=== PATIENT | male | born 1940 | race Caucasian/White ===

== ENCOUNTER → 2016-05-23 | Outpatient (CLI) | payer MEDICARE, OTHER ==
[~2016-05-23] MED LIST: ADV250INH INH; ATEN100T PO; AZIL1TAB2 PO; CIPR500T89 PO; CO Q400C2 PO; COMBIN INH; FLUTISP; HYDR10TA13 PO; LISI5TAB PO; METF1000 PO; METR500T10 PO; MIRA0.12 PO; MULTTAB4 PO; NYST50SS SS; OMEP40CA2 PO; SENO8.6T9 PO; SIMV10TA2 PO; TYLE325T5 PO
[2016-05-23 13:29] LABS: ANION GAP 8 MEQ/L (8-16); BLOOD UREA NITROGEN 20 MG/DL (7-18); CALCIUM LEVEL 9.1 MG/DL (8.8-10.2); CARBON DIOXIDE LEVEL 34 MEQ/L (21-32); CHLORIDE LEVEL 98 MEQ/L (98-107); CREATININE FOR GFR 1.11 MG/DL (0.70-1.30); GLOMERULAR FILTRATION RATE > 60.0 (>42); GLUCOSE, FASTING 132 MG/DL (83-110); POTASSIUM SERUM 3.8 MEQ/L (3.5-5.1); SODIUM LEVEL 140 MEQ/L (136-145)
== END ==
LOC: M SMT 09:00
PROVIDERS: ATTEND Internal Medicine Cardiovascular Disease
DX: I10 Essential (primary) hypertension (principal)

== ENCOUNTER → 2016-05-30 | Outpatient (CLI) | payer MEDICARE, OTHER ==
--- NOTE | 2016-05-30 08:35 | REP ---
CT study of the chest without contrast: History: Solitary pulmonary nodule. Comparison studies: Chest CT study in August 28, 2015. This showed irregular somewhat spiculated density in the right upper lobe. This was biopsied on October 14, 2015. With benign results. CT findings: The lesion which was biopsied in the posterior segment of the right upper lobe shows only a small amount of pleuroparenchymal linear fibrosis. Otherwise, this lesion has resolved. There are emphysematous changes in the upper lobes bilaterally. There is also some pleuroparenchymal fibrosis in the apex of the right lung, which is new from the September 14, 2015 prior exam. Mild linear fibrosis is seen in the bases bilaterally, unchanged. The patient is status post left thoracotomy and left upper lobectomy and postoperative changes are seen in the left hilus. No pleural or pericardial effusion is seen. There are post thoracotomy changes in the posterolateral rib cage as before. No bony destructive lesion is seen. Degenerative changes are noted in the thoracic spine. Vascular calcification is noted. No adrenal lesion is seen. Impression: Evidence of COPD with areas of bilateral pleuroparenchymal fibrosis as described above. The lesion described on the August 28, 2015 prior study has largely resolved with some residual fibrosis. No active disease. Signed by Emir Calero MD 05/30/2016 02:26 P
== END ==
LOC: M RAD 07:20
PROVIDERS: ATTEND Internal Medicine Pulmonary Disease
DX: R91.1 Solitary pulmonary nodule (principal)

== ENCOUNTER → 2016-06-29 | Outpatient (CLI) | payer MEDICARE, OTHER ==
[2016-06-29 14:01] LABS: ALBUMIN 3.4 GM/DL (3.2-5.2); ALBUMIN/GLOBULIN RATIO 0.92 (1.00-1.93); ALKALINE PHOSPHATASE 913 U/L (45-117); ALT/SGPT 55 U/L (12-78); ANION GAP 6 MEQ/L (8-16); AST/SGOT 161 U/L (15-37); BILIRUBIN,TOTAL 1.5 MG/DL (0.2-1.0); BLOOD UREA NITROGEN 13 MG/DL (7-18); CALCIUM LEVEL 9.1 MG/DL (8.8-10.2); CARBON DIOXIDE LEVEL 36 MEQ/L (21-32); CHLORIDE LEVEL 97 MEQ/L (98-107); CHOLESTEROL LEVEL 195 MG/DL (<200); CREATININE FOR GFR 0.87 MG/DL (0.70-1.30); GLOMERULAR FILTRATION RATE > 60.0 (>42); GLUCOSE, FASTING 141 MG/DL (83-110); POTASSIUM SERUM 3.9 MEQ/L (3.5-5.1); SODIUM LEVEL 139 MEQ/L (136-145); TOTAL PROTEIN 7.1 GM/DL (6.4-8.2); TRIGLYCERIDES LEVEL 72 MG/DL (<150)
== END ==
LOC: M SMT 10:12
PROVIDERS: ATTEND Emergency Medicine
DX: I10 Essential (primary) hypertension (principal); E78.2 Mixed hyperlipidemia; E11.9 Type 2 diabetes mellitus without complications

== ENCOUNTER 2016-09-11 08:15 | Inpatient (IN) | payer MEDICARE, OTHER ==
[~2016-09-11] VITALS: Ht 177.8 cm; Wt 82.7 kg
[2016-09-11] MEDS ORDERED: ADV250INH INH (08:56)
[2016-09-11] MEDS ORDERED: ASPI1TAB PO ×3 (08:56→12:04)
[2016-09-11] MEDS ORDERED: MULT1TAB10 PO (08:56)
[2016-09-11] MEDS ORDERED: METF500T PO (08:56)
[2016-09-11] MEDS ORDERED: COMBAER6 INH (08:56)
[2016-09-11] MEDS ORDERED: FLON1SPR (08:56)
[2016-09-11] MEDS ORDERED: ZOCO10TA PO (08:56)
[2016-09-11] MEDS ORDERED: AMIL5TA PO (08:56)
[2016-09-11] MEDS ORDERED: ALEV220C2 PO (09:00)
[2016-09-11] MEDS ORDERED: OMEP40CA2 PO (09:00)
[2016-09-11] MEDS ORDERED: MIRA1.5T2 PO (09:00)
[2016-09-11] MEDS ORDERED: AZIL1TAB PO (09:00)
[2016-09-11] MEDS ORDERED: SINE25TA PO (09:00)
[2016-09-11] MEDS ORDERED: TORS20TA2 PO ×3 (09:00→12:06)
[2016-09-11 09:44] LABS: BASO % 0.5 % (0.0-1.0); EOS # 0.2 K/mm3 (0.0-0.50); EOS % 2.2 % (0.0-3.0); LARGE UNSTAINED CELL # 0.1 K/mm3 (0.0-0.4); LARGE UNSTAINED CELL % 1.2 % (0.0-4.0); LYMPH # 1.2 K/mm3 (1.5-4.5); LYMPH % 16.8 % (24.0-44.0); MEAN CORPUSCULAR HEMOGLOBIN 31.2 pg (27.0-33.0); MEAN CORPUSCULAR HGB CONC 32.9 g/dl (32.0-36.5); MEAN CORPUSCULAR VOLUME 94.9 fl (80.0-96.0); MONO # 0.5 K/mm3 (0.0-0.8); NEUTROPHILS # 4.8 K/mm3 (1.8-7.7); NEUTROPHILS % 72.3 % (36.0-66.0); PLATELET COUNT, AUTOMATED 248 k/mm3 (150-450); RED CELL DISTRIBUTION WIDTH 14.4 % (11.5-14.5); WHITE BLOOD COUNT 6.6 K/mm3 (4.0-10.0)
[2016-09-11 09:49] LABS: INR 1.03
[2016-09-11 10:34] LABS: ALBUMIN 3.1 GM/DL (3.2-5.2); ALBUMIN/GLOBULIN RATIO 0.67 (1.00-1.93); ALT/SGPT 76 U/L (12-78); AMYLASE 47 U/L (25-115); ANION GAP 7 MEQ/L (8-16); AST/SGOT 296 U/L (15-37); BILIRUBIN,DIRECT 13.7 MG/DL (0.0-0.2); BLOOD UREA NITROGEN 15 MG/DL (7-18); CALCIUM LEVEL 9.3 MG/DL (8.8-10.2); CARBON DIOXIDE LEVEL 36 MEQ/L (21-32); CHLORIDE LEVEL 92 MEQ/L (98-107); CREATININE FOR GFR 1.08 MG/DL (0.70-1.30); GLOMERULAR FILTRATION RATE > 60.0 (>42); GLUCOSE, FASTING 118 MG/DL (83-110); POTASSIUM SERUM 2.9 MEQ/L (3.5-5.1); SODIUM LEVEL 135 MEQ/L (136-145); TOTAL PROTEIN 7.7 GM/DL (6.4-8.2)
--- NOTE | 2016-09-11 10:39 | REP ---
Portable chest x-ray: Sitting AP view. History: Jaundice. Comparison chest x-ray: October 14, 2015. Findings: There is some linear fibrosis or plate-like atelectasis in the right upper lobe. This is much improved when compared with the October 14, 2015 study. The left hemidiaphragm remains slightly elevated with blunting of the lateral pleural angle and surgical clips in the left mediastinum post thoracotomy. Post thoracotomy changes are seen in the left rib cage as before. Lung ponce are otherwise clear. The right pleural angle is sharp. Heart is not enlarged. Impression: Post thoracotomy changes on the left. Linear fibrosis versus discoid atelectasis right apex. This is improved. Otherwise no acute disease. Signed by Emir Calero MD 09/11/2016 11:32 A
[2016-09-11 10:42] LABS: ALKALINE PHOSPHATASE 1026 U/L (45-117)
[2016-09-11 10:53] LABS: BILIRUBIN,TOTAL 17.4 MG/DL (0.2-1.0)
[2016-09-11] MEDS ORDERED: POTASSIUM CHLORIDE 10 MEQ SR TABLET PO ONE ×2 (11:00→18:00)
[2016-09-11] MEDS ORDERED: KCL 10MEQ IN 100ML SWI (KRUN) 10 MEQ in APPROPRIATE DILUENT 1 EA IV ONE ×2 (11:00)
[2016-09-11] MEDS ORDERED: ISOVUE-370 76% 100ML VIAL (Q9967) As Ordered ONE (11:08)
[2016-09-11] MEDS ORDERED: OMEP20CA3 PO (12:04)
--- NOTE | 2016-09-11 12:06 | REP ---
CT study of the abdomen and pelvis with IV but without oral contrast: History: Painless jaundice. The patient is status post prior cholecystectomy. Comparison CT study is reviewed from chest CT June 09, [address] September 17, 2015. CT contrast dose: 100 ml of Isovue 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 The lung bases show minimal linear fibrotic changes but are otherwise clear. The spleen is unremarkable. The liver is not enlarged. There is moderate intrahepatic and extrahepatic biliary ductal dilation. There is a heterogeneous area of increased attenuation and fullness in the allison hepatis in the region of the common hepatic duct segment. This measures 18 mm in greatest diameter. The duct above this level measures 15 mm in diameter. This may reflect soft tissue mass involving the choledochus versus choledocholithiasis. Distal to this, the common bile duct is normal measuring 5 mm. No pancreatic mass lesion is seen. No adenopathy is noted. No adrenal lesion is observed. There are small cortical cysts affecting both kidneys. No hydronephrosis or mass is seen. Normal caliber aorta is seen fairly heavily calcified. No focal liver mass lesion is observed. Small and large intestinal bowel loops are unremarkable in the abdomen and pelvis. Urinary bladder, seminal vesicles and prostate are unremarkable except that the prostate is enlarged and contains a few dystrophic calcifications consistent with BPH. No bony destructive lesion is seen. Impression: Small, 18 mm, obstructing polypoid mass versus a stone in the common hepatic duct within the hepatic allison. Proximal intrahepatic and extrahepatic biliary ductal dilation is observed. Recommend MRCP versus ERCP. The gallbladder is surgically absent. Signed by Emir Calero MD 09/11/2016 12:53 P
[2016-09-11] MEDS ORDERED: ARTI99.0 OU (12:08)
[2016-09-11] MEDS ORDERED: REST0.05 OU (12:08)
[2016-09-11] MEDS ORDERED: METF500T4 PO (12:26)
[2016-09-11] MEDS ORDERED: NS 1,000 ML IV ONE (13:45)
[2016-09-11] MEDS ORDERED: GLUCOSE 4 GM CHEW TABLET PO PRN (14:45)
[2016-09-11] MEDS ORDERED: DEXTROSE 50% 50 ML SYRINGE IV PRN (14:45)
[2016-09-11] MEDS ORDERED: ONDANSETRON 4MG/2ML VIAL (J2405) IV PRN (14:45)
[2016-09-11] MEDS ORDERED: GLUCAGON FOR INJ 1 MG VIAL (J1610) SC PRN (14:45)
[2016-09-11] MEDS ORDERED: IPRATROPIUM 0.5MG/ALBUTEROL 2.5MG INH SOL UD 3ML (DUONEB)(J7620) NEB PRN (14:45)
--- NOTE | 2016-09-11 15:33 | HPEPDOC ---
General Date of Admission Sep 11, 2016 at 14:40 Primary Care Physician: SHA CABRERA MD Attending Physician: RAMONA GROVE MD Chief Complaint The patient is a 75-year-old male admitted with a reason for visit of Hyperbilirubinemia. History of Present Illness 75-year-old male with past medical of hypertension, COPD, obstructive sleep apnea, diabetes mellitus, dyslipidemia, lung cancer status post resection of the left upper lobe in 2000, Parkinson's disease, and dependent lower extremity edema presented to the ER with a chief complaint of yellowing of the skin over the last 48 hours. The patient states that he started to notice his skin turning yellow early yesterday morning. He denied any fevers, chills, chest pain , palpitations, shortness of breath, abdominal pain or any nausea or vomiting. However, the patient did state that he has had a decreased appetite over the last 6 weeks and has lost approximately 8 pounds. He also noted that he has been having some loose stools over the last few weeks. In addition, the patient notes that his urine has been a dark-colored brown. In the ER, the patient's liver function tests revealed significant elevations in total bilirubin, alkaline phosphatase, AST, and ALT levels. A CT scan of the abdomen was obtained and this revealed a 18 mm obstructing polypoid mass versus stone in the common hepatic duct. GI was contacted in the ER, and will see the patient in consultation for possible ERCP in the morning. The hospitalist service has been consulted for admission and further evaluation and management. Home Medications Scheduled (Aleve) 220 Mg Cap, 220 MG PO BID, (Reported) (Restasis) 0.05 % Emu, 1 DROP OU BID, (Reported) Amiloride HCl (Amiloride HCl) 5 Mg Tab, 5 MG PO DAILY, (Reported) Aspirin (Aspirin 81) 81 Mg Tab, 81 MG PO DAILY, (Reported) Carbidopa/Levodopa (Sinemet Cr 25-100 mg) 1 Tab Tab, 0.5 TAB PO QID, (Reported) Metformin Hydrochloride (Metformin HCl ER) 500 Mg Tab, 500 MG PO QHS, (Reported) Multivitamins (Multivitamin Adults) 1 Tab Tab, 1 TAB PO DAILY, (Reported) Omeprazole (Omeprazole) 20 Mg Cap, 40 MG PO DAILY, (Reported) Pramipexole Dihydrochloride (Mirapex) 1.5 Mg Tab, 1.5 MG PO TID, (Reported) Rasagiline Mesylate (Azilect) 1 Mg Tab, 1 MG PO DAILY, (Reported) Salmeterol/Fluticasone (Advair Diskus 250-50 Mcg/Dose) 14 Puff/Inhaler Aerp, 1 PUFF INH BID, (Reported) Simvastatin (Zocor) 10 Mg Tab, 10 MG PO QHS, (Reported) Torsemide (Torsemide) 20 Mg Tab, 20 MG PO QAM, (Reported) Torsemide (Torsemide) 20 Mg Tab, 10 MG PO QPM, (Reported) AT 1600 Scheduled PRN Albuterol/Ipratropium (Combivent Respimat 20-100 Mcg/Act) 1 Aer Aer, 2 PUFF INH Q4H PRN for SHORTNESS OF BREATH, (Reported) Artificial Tears (Artificial Tears) 1.4 % Mellisa, 1 LÓPEZ OU DAILY PRN for DRY EYES, (Reported) Allergies Coded Allergies: Penicillins (Unverified Adverse Reaction, Mild, MOUTH SORENESS, 02/28/13) Past Medical History Medical History As noted in HPI. Surgical History Tonsillectomy, adenoidectomy, right knee surgery, shoulder surgery, left upper lobe resection in 2000, cholecystectomy Family History Significant Family History: No pertinent family hx Social History * Smoker: former Smoker (smoked 1-2 packs per day for 30+ years, quit 15+ years ago) Alcohol: occationally (drinks a glass of red wine with dinner on most nights) Drugs: denies Lives at home with his , does not use any assistive devices for ambulation, performs activities of daily living independently Review of Symptoms Other systems 10 point review of systems negative unless otherwise specified in HPI. Physical Examination General Exam: Positive: Alert, Cooperative, No Acute Distress, Other (patient resting comfortably in bed, appears significantly jaundiced) Eye Exam: Positive: Sclera icteric ENT Exam: Positive: Atraumatic, Mucous membr. moist/pink Chest Exam: Positive: Clear to auscultation, Normal air movement Heart Exam: Positive: Rate Normal, Normal S1, Normal S2 Telemetry: Positive: Sinus Abdomen Exam: Positive: Soft, Negative: Tenderness Extremity Exam: Negative: Tenderness, Swelling Psych Exam: Positive: Oriented x 3 Vital Signs Vital Signs Date Time Temp Pulse Resp B/P (MAP) Pulse Ox O2 Delivery O2 Flow Rate FiO2 6/18/17 13:34 155/79 (104) 09/11/16 13:30 70 97 09/11/16 08:47 97.9 16 Laboratory Data Labs 24H Laboratory Tests 2 09/11/16 09:31: White Blood Count 6.6, Red Blood Count 4.40, Hemoglobin 13.7L, Hematocrit 41.7L , Mean Corpuscular Volume 94.9, Mean Corpuscular Hemoglobin 31.2, Mean Corpuscular Hemoglobin Concent 32.9, Red Cell Distribution Width 14.4, Platelet Count 248, Neutrophils (%) (Auto) 72.3H, Lymphocytes (%) (Auto) 16.8L, Monocytes (%) (Auto) 7.0H, Eosinophils (%) (Auto) 2.2, Basophils (%) (Auto) 0.5 , Neutrophils # (Auto) 4.8, Lymphocytes # (Auto) 1.2L, Monocytes # (Auto) 0.5, Eosinophils # (Auto) 0.2, Basophils # (Auto) 0.0, Large Unclassified Cells % 1.2 , Large Unclassified Cells # 0.1, Prothrombin Time 13.6, Prothromb Time International Ratio 1.03, Activated Partial Thromboplast Time 34.0, Anion Gap 7L , Glomerular Filtration Rate > 60.0, Lactic Acid Level 0.8, Calcium Level 9.3, Magnesium Level 2.4, Aspartate Amino Transf (AST/SGOT) 296H, Alanine Aminotransferase (ALT/SGPT) 76, Alkaline Phosphatase 1026H, Total Bilirubin 17.4 *H, Direct Bilirubin 13.7H, Total Creatine Kinase 73, Creatine Kinase MB 1.0, Creatine Kinase MB Relative Index 1.36, Troponin I < 0.02, Total Protein 7.7, Albumin 3.1L, Albumin/Globulin Ratio 0.67L, Amylase Level 47, Lipase 284 09/11/16 10:13: Urine Appearance CLEAR, Urine Color LETICIA, Urine pH 6.0, Urine Specific [place] 1.004, Urine Protein NEGATIVE, Urine Glucose (UA) NEGATIVE, Urine Ketones NEGATIVE, Urine Urobilinogen 2.0H, Urine Bilirubin 1+H, Urine Leukocyte Esterase NEGATIVE, Urine Blood 1+H, Urine Nitrite NEGATIVE, Urine WBC (Auto) 2, Urine RBC (Auto) 0, Urine Hyaline Casts (Auto) 0, Urine Bacteria (Auto) NEGATIVE , Urine Squamous Epithelial Cells 0, Urine Sperm (Auto) CBC/BMP Laboratory Tests 09/11/16 09:31 Red Blood Count 4.40, Mean Corpuscular Volume 94.9, Mean Corpuscular Hemoglobin 31.2, Mean Corpuscular Hemoglobin Concent 32.9, Red Cell Distribution Width 14.4 , Neutrophils (%) (Auto) 72.3 H, Lymphocytes (%) (Auto) 16.8 L, Monocytes (%) ( Auto) 7.0 H, Eosinophils (%) (Auto) 2.2, Basophils (%) (Auto) 0.5, Neutrophils # (Auto) 4.8, Lymphocytes # (Auto) 1.2 L, Monocytes # (Auto) 0.5, Eosinophils # (Auto) 0.2, Basophils # (Auto) 0.0 Microbiology Microbiology 09/11/16 Blood Culture, Received Pending 09/11/16 Blood Culture, Received Pending 09/11/16 Urine Culture, Received Pending Plan / VTE VTE Prophylaxis Ordered?: Yes Plan Plan Hyperbilirubinemia, elevated alkaline phosphatase, AST levels 2/2 Obstructive Jaundice from Underlying Common Hepatic Duct Polypoid Mass vs Stone We will admit the patient to the med/surge unit Given the patient's history of decreased appetite, and weight loss, there is a significant concern for underlying malignancy GI contacted in the ER, will see the patient in consultation for possible ERCP in the morning Nothing by mouth after midnight Gentle IV fluid hydration Patient without any acute abdominal pain We will continue to monitor his progress Hypokalemia We will replete this and repeat a serum potassium level COPD, stable Continue albuterol when necessary, Advair Obstructive sleep apnea May use own CPAP Diabetes mellitus We will hold oral hypoglycemics and administer insulin sliding scale Dyslipidemia Continue statin Lung cancer status post resection of the left upper lobe in 2000 Parkinson's disease Continue regimen as ordered Dependent lower extremity edema Patient denies any history of congestive heart failure His lower extremities appear to be within normal limits at this time However given the patient's decreased by mouth intake we will hold diuretic therapy at this time GERD Continue PPI DVT prophylaxis Heparin subcutaneous The patient will be admitted under the service of Dr. Grove, who will begin to follow the patient on 09/12/16 at 7am. VICKY FINCH MD Sep 11, 2016 15:33
[2016-09-11 15:35] VITALS: BP 151/71
[2016-09-11] MEDS: HumaLOG INSULIN (NovoLOG) PER UNIT SC SCH ×2 (17:45→21:00)
[2016-09-11] MEDS: SINEMET**CR** 25/100 TABCR PO SCH ×2 (18:36→21:14)
[2016-09-11] MEDS: PRAMIPEXOLE 1 MG TAB PO SCH ×2 (18:37→21:15)
[2016-09-11] MEDS: ADVAIR DISKUS 250/50 INH PWD INH SCH ×2 (19:31→21:52)
[2016-09-11] MEDS: HEPARIN SOD (PORCINE) 5000 UNITS/ML VIAL SC SCH (21:14)
[2016-09-11] MEDS: SIMVASTATIN 10 MG TAB PO SCH (21:14)
[2016-09-11 22:00] VITALS: BP 123/63
[2016-09-12] MEDS ORDERED: NS 1,000 ML IV SCH (00:01)
[2016-09-12] MEDS: HEPARIN SOD (PORCINE) 5000 UNITS/ML VIAL SC SCH (05:28)
[2016-09-12 06:00] VITALS: BP 128/62
[2016-09-12 06:23] LABS: MEAN CORPUSCULAR HEMOGLOBIN 31.8 pg (27.0-33.0); MEAN CORPUSCULAR HGB CONC 32.7 g/dl (32.0-36.5); MEAN CORPUSCULAR VOLUME 97.3 fl (80.0-96.0); RED CELL DISTRIBUTION WIDTH 14.7 % (11.5-14.5); WHITE BLOOD COUNT 6.3 K/mm3 (4.0-10.0)
[2016-09-12 06:29] LABS: INR 1.07
[2016-09-12 07:03] LABS: ALBUMIN/GLOBULIN RATIO 0.73 (1.00-1.93); ALKALINE PHOSPHATASE 1113 U/L (45-117); ALT/SGPT 85 U/L (12-78); ANION GAP 5 MEQ/L (8-16); AST/SGOT 292 U/L (15-37); BLOOD UREA NITROGEN 11 MG/DL (7-18); CALCIUM LEVEL 9.2 MG/DL (8.8-10.2); CARBON DIOXIDE LEVEL 32 MEQ/L (21-32); CHLORIDE LEVEL 99 MEQ/L (98-107); CREATININE FOR GFR 0.96 MG/DL (0.70-1.30); GLOMERULAR FILTRATION RATE > 60.0 (>42); GLUCOSE, FASTING 106 MG/DL (83-110); MAGNESIUM LEVEL 2.5 MG/DL (1.8-2.4); POTASSIUM SERUM 3.9 MEQ/L (3.5-5.1); SODIUM LEVEL 136 MEQ/L (136-145); TOTAL PROTEIN 7.1 GM/DL (6.4-8.2)
[2016-09-12 07:08] LABS: BILIRUBIN,TOTAL 17.5 MG/DL (0.2-1.0)
[2016-09-12] MEDS ORDERED: LORazepam 2 MG/ML VIAL (J2060) IV STA (08:51)
[2016-09-12] MEDS ORDERED: MULTIVITAMINS/MINERALS THERAP 1 TAB PO SCH (09:00)
[2016-09-12] MEDS: SINEMET**CR** 25/100 TABCR PO SCH ×4 (10:16→21:04)
[2016-09-12] MEDS: PRAMIPEXOLE 1 MG TAB PO SCH ×3 (10:17→21:04)
[2016-09-12] MEDS: OMEPRAZOLE 20 MG CAP PO SCH (10:17)
[2016-09-12] MEDS: HumaLOG INSULIN (NovoLOG) PER UNIT SC SCH ×4 (10:18→20:11)
--- NOTE | 2016-09-12 10:57 | REP ---
MRCP: MRCP exam is accomplished utilizing multiple heavily T-2 weighted sequences in the axial and coronal planes. MIP reconstruction images are performed. Correlation made with CT exam of 09/11/2016. There is moderate intrahepatic biliary dilatation. The common hepatic duct is dilated up to 11 mm in diameter. There is abrupt cutoff and nonvisualization of the duct in the allison hepatis. There is revisualization of the distal common bile duct, which is normal in caliber. Findings are most consistent with a polypoid mass involving the common hepatic/common bile duct. Small cystic structure lateral to the descending duodenum may represent a dilated cystic duct remnant. The pancreatic duct is normal in caliber. There are a few bilateral renal cysts present. IMPRESSION: MRCP exam shows findings most consistent with a polypoid soft tissue mass involving the common hepatic/common bile duct measuring in the range of 2 cm in diameter. There is moderate dilatation of the common hepatic duct and of the intrahepatic bile ducts. Signed by Mike Helton MD 09/12/2016 08:18 P
--- NOTE | 2016-09-12 13:01 | IPNPDOC ---
Date Seen The patient was seen on 09/12/16. Progress Note SUBJECTIVE: Does not have any complaints. Denied any abdominal pain , nausea or vomiting. does have light colored stools . no fever or chills, no chest pain or sob , no cough or phlegm. OBJECTIVE PHYSICAL EXAMINATION: VITAL SIGNS: Please see below. GENERAL: awake , alert oriented x 3 HEENT: normocephalic, atraumatic, Moist mucous membranes. Has severe icterus. CARDIOVASCULAR: normal S1 and S2 , no rub m murmur or gallop. RESPIRATORY: bilateral vesicular breath sounds, no ronchi or rales. ABDOMINAL: soft, nontender, bowel sounds normal , no organomegaly. EXTREMITIES: no edema, normal pulses. LABORATORY DATA: Please see below. MICROBIOLOGY: Please see below. IMAGING: MRCP exam shows findings most consistent with a polypoid soft tissue mass involving the common hepatic/common bile duct measuring in the range of 2 cm in diameter. There is moderate dilatation of the common hepatic duct and of the intrahepatic bile ducts. Plan Hyperbilirubinemia: 2/2 Obstructive Jaundice from Underlying Common Hepatic Duct Polypoid Mass . Had MRCP today , awaiting GI evaluation for further plan. Hypokalemia : We will replete this and repeat a serum potassium level COPD, stable Continue albuterol when necessary, Advair Obstructive sleep apnea May use own CPAP Diabetes mellitus We will hold oral hypoglycemics and administer insulin sliding scale Dyslipidemia Continue statin Lung cancer status post resection of the left upper lobe in 2000 Parkinson's disease Continue regimen as ordered Dependent lower extremity edema: His lower extremities appear to be within normal limits at this time However given the patient's decreased by mouth intake we will hold diuretic therapy at this time GERD Continue PPI DVT prophylaxis Heparin subcutaneous VS, I&O, 24H, Elvia Vital Signs/I&O Vital Signs Date Time Temp Pulse Resp B/P (MAP) Pulse Ox O2 Delivery O2 Flow Rate FiO2 09/12/16 11:34 Room Air 09/12/16 06:00 99.3 84 16 128/62 (84) 94 I&O- Last 24 Hours up to 6 AM 09/12/16 06:00 Intake Total 580 ml Output Total 1175 ml Balance -595 ml Laboratory Data 24H LABS Laboratory Tests 2 09/11/16 16:44: Bedside Glucose (Misc Panel) 99 09/11/16 20:04: Bedside Glucose (Misc Panel) 121H 09/12/16 05:53: Prothrombin Time 14.0, Prothromb Time International Ratio 1.07, Anion Gap 5L, Glomerular Filtration Rate > 60.0, Blood Urea Nitrogen 11, Creatinine 0.96, Sodium Level 136, Potassium Level 3.9#, Chloride Level 99, Carbon Dioxide Level 32, Calcium Level 9.2, Aspartate Amino Transf (AST/SGOT) 292H, Alanine Aminotransferase (ALT/SGPT) 85H, Alkaline Phosphatase 1113H, Total Bilirubin 17.5*H, Total Protein 7.1, Albumin 3.0L, Magnesium Level 2.5H, Ammonia 41H, Albumin/Globulin Ratio 0.73L CBC/BMP Laboratory Tests 09/11/16 17:05 09/12/16 05:53 Red Blood Count 4.20 L, Mean Corpuscular Volume 97.3 H, Mean Corpuscular Hemoglobin 31.8, Mean Corpuscular Hemoglobin Concent 32.7, Red Cell Distribution Width 14.7 H, Calcium Level 9.2, Aspartate Amino Transf (AST/SGOT) 292 H, Alanine Aminotransferase (ALT/SGPT) 85 H, Alkaline Phosphatase 1113 H, Total Bilirubin 17.5 *H, Total Protein 7.1, Albumin 3.0 L Microbiology Microbiology 09/11/16 Blood Culture - Preliminary, Resulted No growth after 24 hours . All specim... 09/11/16 Blood Culture - Preliminary, Resulted No growth after 24 hours . All specim... 09/11/16 Urine Culture - Final, Complete RAMONA GROVE MD Sep 12, 2016 13:01
[2016-09-12 14:00] VITALS: BP 141/74
[2016-09-12] MEDS: ADVAIR DISKUS 250/50 INH PWD INH SCH (19:20)
[2016-09-12] MEDS: SIMVASTATIN 10 MG TAB PO SCH (21:04)
[2016-09-12 22:00] VITALS: BP 150/72
[2016-09-13] VITALS (8 sets, daily range): BP systolic 134–167; BP diastolic 66–81
[2016-09-13 05:47] LABS: MEAN CORPUSCULAR HEMOGLOBIN 31.6 pg (27.0-33.0); MEAN CORPUSCULAR HGB CONC 32.4 g/dl (32.0-36.5); MEAN CORPUSCULAR VOLUME 97.3 fl (80.0-96.0); WHITE BLOOD COUNT 6.6 K/mm3 (4.0-10.0)
[2016-09-13 06:15] LABS: ALBUMIN 2.8 GM/DL (3.2-5.2); ALBUMIN/GLOBULIN RATIO 0.67 (1.00-1.93); ALKALINE PHOSPHATASE 1174 U/L (45-117); ALT/SGPT 80 U/L (12-78); ANION GAP 6 MEQ/L (8-16); AST/SGOT 291 U/L (15-37); BLOOD UREA NITROGEN 10 MG/DL (7-18); CALCIUM LEVEL 8.9 MG/DL (8.8-10.2); CARBON DIOXIDE LEVEL 31 MEQ/L (21-32); CHLORIDE LEVEL 100 MEQ/L (98-107); CREATININE FOR GFR 0.87 MG/DL (0.70-1.30); GLOMERULAR FILTRATION RATE > 60.0 (>42); GLUCOSE, FASTING 103 MG/DL (83-110); MAGNESIUM LEVEL 2.6 MG/DL (1.8-2.4); POTASSIUM SERUM 3.9 MEQ/L (3.5-5.1); SODIUM LEVEL 137 MEQ/L (136-145)
[2016-09-13 06:23] LABS: BILIRUBIN,TOTAL 18.7 MG/DL (0.2-1.0)
[2016-09-13] MEDS: ADVAIR DISKUS 250/50 INH PWD INH SCH ×2 (07:25→20:50)
[2016-09-13] MEDS: HumaLOG INSULIN (NovoLOG) PER UNIT SC SCH ×4 (07:30→21:00)
[2016-09-13] MEDS: OMEPRAZOLE 20 MG CAP PO SCH (07:50)
[2016-09-13] MEDS: PRAMIPEXOLE 1 MG TAB PO SCH ×3 (07:50→21:41)
[2016-09-13] MEDS: SINEMET**CR** 25/100 TABCR PO SCH ×4 (07:51→21:42)
[2016-09-13] MEDS: MULTIVITAMINS CHILDREN'S CHEWABLE TABLET PO SCH (08:00)
--- NOTE | 2016-09-13 08:43 | ECGEPIP ---
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
[2016-09-13] MEDS ORDERED: ISOVUE-300 61% 50ML VIAL (Q9967) As Ordered ONE (10:32)
[2016-09-13] MEDS ORDERED: SUCCINYLCHOLINE 100 MG/5 ML SYRINGE (J0330) As Ordered ONE (10:52)
[2016-09-13] MEDS ORDERED: dexameTHASONE 4 MG/ML 1ML VIAL (J1100) As Ordered ONE (10:52)
[2016-09-13] MEDS ORDERED: ONDANSETRON 4MG/2ML VIAL (J2405) As Ordered ONE (10:52)
[2016-09-13] MEDS ORDERED: fentaNYL 100 MCG/2 ML INJECTION (J3010) As Ordered ONE ×2 (10:52→12:13)
[2016-09-13] MEDS ORDERED: MIDAZOLAM INJ 2 MG/2 ML VIAL (J2250) As Ordered ONE (10:52)
[2016-09-13] MEDS ORDERED: LIDOCAINE 2% INJ 100 MG/5 ML SDV (FOR ANES.) As Ordered ONE (10:52)
[2016-09-13] MEDS ORDERED: ROCURONIUM BROMIDE 50 MG/5 ML VIAL As Ordered ONE (10:52)
[2016-09-13] MEDS ORDERED: PROPOFOL 200 MG/20 ML VIAL As Ordered ONE (10:52)
--- NOTE | 2016-09-13 12:55 | ROOR ---
Patient Name: Fran Lane Procedure Date: 09/13/2016 11:12 AM Date of : 1940 Age: 75 Room: Main OR Gender: Male Note Status: Finalized Procedure: ERCP-incompete- Egd + Balloon Dilatation Indications: Biliary dilation on Computed Tomogram Scan, Abnormal MRCP, Jaundice Providers: Addison Faustin MD Referring MD: 2. Inpatient 2. Inpatient Requesting Provider: Medicines: General Anesthesia Complications: No immediate complications. Procedure: Pre-Anesthesia Assessment: - The heart rate, respiratory rate, oxygen saturations, blood pressure, adequacy of pulmonary ventilation, and response to care were monitored throughout the procedure. The Duodenoscope was introduced through the mouth, with the intention of advancing to the bile ducts. The scope was advanced to the esophagus before the procedure was aborted. Medications were given. The ERCP was accomplished without difficulty. The ERCP was aborted due to the difficulty of the procedure. Findings: The scope was passed under direct vision through the upper GI tract. Multiple severe benign-appearing, intrinsic stenoses were found 20 cm from the incisors. And they were traversed after dilation. The scope was passed under direct vision through the upper GI tract. One severe benign-appearing, intrinsic stenosis was found 40 cm from the incisors. And was not traversed. The upper GI tract was traversed under direct vision without detailed examination. Multiple severe benign-appearing, intrinsic stenoses were found 20 cm from the incisors. And they were traversed after dilation. Impression: - The ERCP was aborted due to the difficulty of the procedure. - Benign-appearing esophageal stenoses. Dilated tight esophageal stricture at 20 cms with 10-11-12 balloon dilatation - Not able to pass ERCP scope easily into the stomach. Egd scope was passed- stomach was normal. Recommendation: - Return patient to [facility] for [facility] care. - Watch for pancreatitis, bleeding, perforation, and cholangitis. - The findings and recommendations were discussed with the referring physician. Addison Faustin MD Addison Faustin MD 09/13/2016 12:54:52 PM This report has been signed electronically. Number of Addenda: 0 Note Initiated On: 09/13/2016 11:12 AM Estimated Blood Loss: Estimated blood loss: none.
[2016-09-13] MEDS ORDERED: fentaNYL 100 MCG/2 ML INJECTION (J3010) IV PRN (13:00)
[2016-09-13] MEDS ORDERED: PERCOCET 5MG/325MG TAB PO PRN (13:00)
[2016-09-13] MEDS ORDERED: LR 1,000 ML IV SCH (13:00)
[2016-09-13] MEDS ORDERED: ONDANSETRON 4MG/2ML VIAL (J2405) IV PRN (13:00)
[2016-09-13] MEDS ORDERED: HYDROmorphone HCL 1 MG/ML SYRINGE (J1170) IV PRN (13:00)
--- NOTE | 2016-09-13 15:31 | CR ---
DATE OF CONSULTATION: 09/12/2016 75-year-old white male who was admitted to [facility] on 09/11/2016 for evaluation of painless jaundice. The patient relates that he has been in his usual state of health until approximately 4 to 5 days prior to admission. The patient was noticed by family members appearing yellow. He denies any complaints of abdominal pain, weight loss, fevers, night sweats or shaking chills. The patient has had a previous remote history of left upper lobe lung cancer, which was resected in 2000. He apparently has had his gallbladder removed by Dr. Sanchez approximately a year or year and a half ago. His current medical problems includes hypertension, chronic obstructive pulmonary disease (COPD), obstructive sleep apnea, diabetes, dyslipidemia and the previous lung resection in 2000. He also apparently has Parkinson's. He denies any complaints of fevers, night sweats or shaking chills. His urine has changed in color, though he has not noticed any change in stool coloration. The patient has had diagnostic tests, which show obstructive jaundice. MEDICATIONS AT HOME: Includes: - amiloride - aspirin - carbidopa levodopa - metformin - omeprazole - simvastatin - torsemide ALLERGIES: The patient is allergic to PENICILLIN. SOCIAL HISTORY: The patient is a former smoker of up to two packs a day for 30 years, quit 15 years ago. Alcohol is occasionally drinks red wine with dinner. REVIEW OF SYSTEMS: 10-point review of systems were essentially negative to the above history of present illness. PHYSICAL EXAMINATION: GENERAL: Well-developed, well-nourished, somewhat icteric white male in no acute distress. CHEST: Clear to auscultation. CARDIOVASCULAR EXAM: Regular rhythm. No murmurs or gallops. Normal physiological split. S1, S2. ABDOMEN: Soft, nontender. No masses, guarding, rebound, hepatosplenomegaly. Bowel sounds positive. Diagnostic workup includes laboratory studies with a white count 6600, hemoglobin and hematocrit of 13.7 and 41.7. The patient's chemistry shows on admission a total bilirubin 17.5. AST was 292, ALT was 85, alkaline phosphatase was 1113. Serum ammonia was 41. Albumin is 3.0. Coagulation studies show an INR of 1. Diagnostic imaging has shown an abdominal CT of 09/11/2016, which interpretation suggested a mass, 18 mm obstructing polypoid mass versus possible stone in the common hepatic duct within the hepatic allison. The patient has proximal intrahepatic and extrahepatic biliary ductal dilatation. Gallbladder is absent. MRCP was ordered on 09/12. The results suggest again a large polypoid just below the allison hepatis. The lesion involves the common hepatic and common bile duct measuring approximately in the range of 2 cm in diameter in the area of the common hepatic duct and intrahepatic ducts. ANALYSIS: 1. Painless jaundice. At the present time, studies and laboratory testing suggests an obstructive lesion just below the allison hepatis, possible [place] tumor, cholangiocarcinoma cannot be ruled out. PLAN: 1. Attempt ERCP with papillotomy, cytology brushings and possible stent above the tumor if possible to decompress biliary tract. 2. CA 19-9 will be ordered. 3. If the stenting is successful, we plan to refer the patient to a surgical oncologist for further evaluation to see whether the patient is a surgical candidate.
[2016-09-13] MEDS: SIMVASTATIN 10 MG TAB PO SCH (21:42)
[2016-09-14] VITALS (9 sets, daily range): BP systolic 126–154; BP diastolic 60–81; O2SAT 96
[2016-09-14 07:09] LABS: MEAN CORPUSCULAR HEMOGLOBIN 31.3 pg (27.0-33.0); RED CELL DISTRIBUTION WIDTH 14.5 % (11.5-14.5); WHITE BLOOD COUNT 8.9 K/mm3 (4.0-10.0)
[2016-09-14] MEDS: HumaLOG INSULIN (NovoLOG) PER UNIT SC SCH (07:30)
[2016-09-14 07:46] LABS: ALBUMIN 2.7 GM/DL (3.2-5.2); ALBUMIN/GLOBULIN RATIO 0.56 (1.00-1.93); ALKALINE PHOSPHATASE 1144 U/L (45-117); ALT/SGPT 49 U/L (12-78); ANION GAP 7 MEQ/L (8-16); AST/SGOT 217 U/L (15-37); BLOOD UREA NITROGEN 11 MG/DL (7-18); CALCIUM LEVEL 9.6 MG/DL (8.8-10.2); CARBON DIOXIDE LEVEL 29 MEQ/L (21-32); CHLORIDE LEVEL 100 MEQ/L (98-107); GLOMERULAR FILTRATION RATE > 60.0 (>42); GLUCOSE, FASTING 148 MG/DL (83-110); MAGNESIUM LEVEL 2.7 MG/DL (1.8-2.4); POTASSIUM SERUM 4.2 MEQ/L (3.5-5.1); SODIUM LEVEL 136 MEQ/L (136-145); TOTAL PROTEIN 7.5 GM/DL (6.4-8.2)
[2016-09-14 07:49] LABS: BILIRUBIN,TOTAL 19.2 MG/DL (0.2-1.0)
[2016-09-14] MEDS: ADVAIR DISKUS 250/50 INH PWD INH SCH ×2 (08:03→20:05)
[2016-09-14] MEDS: MULTIVITAMINS CHILDREN'S CHEWABLE TABLET PO SCH (08:51)
[2016-09-14] MEDS: PRAMIPEXOLE 1 MG TAB PO SCH ×3 (08:51→21:01)
[2016-09-14] MEDS: OMEPRAZOLE 20 MG CAP PO SCH (08:51)
[2016-09-14] MEDS: SINEMET**CR** 25/100 TABCR PO SCH ×4 (08:52→21:01)
[2016-09-14 09:01] LABS: INR 1.03
[2016-09-14] MEDS ORDERED: CIPROFLOXACIN/D5W 400 MG/200 ML BAG (J0744) As Ordered ONE (16:12)
[2016-09-14] MEDS ORDERED: ISOVUE-300 61% 50ML VIAL (Q9967) As Ordered ONE ×2 (16:12→17:08)
[2016-09-14] MEDS ORDERED: MIDAZOLAM INJ 2 MG/2 ML VIAL (J2250) As Ordered ONE (16:16)
[2016-09-14] MEDS ORDERED: fentaNYL 100 MCG/2 ML INJECTION (J3010) As Ordered ONE ×2 (16:16→19:10)
[2016-09-14] MEDS ORDERED: LIDOCAINE 2% MDV 20 ML VIAL As Ordered ONE (17:16)
--- NOTE | 2016-09-14 18:07 | IPNPDOC ---
Subjective Date Seen The patient was seen on 09/14/16. Subjective Chief Complaint/HPI The patient is a 75-year-old male admitted with a reason for visit of Hyperbilirubinemia. Constitutional: Denies: Chills, Fever, Night Sweats Gastrointestinal: Denies: Nausea, Vomiting, Abdominal Pain, Diarrhea, Constipation Objective Physical Examination General Exam: Positive: Alert, Cooperative, No Acute Distress, Other (patient resting comfortably in bed, appears significantly jaundiced) Eye Exam: Positive: Sclera icteric ENT Exam: Positive: Atraumatic, Mucous membr. moist/pink Chest Exam: Positive: Clear to auscultation, Normal air movement Heart Exam: Positive: Rate Normal, Normal S1, Normal S2 Telemetry: Positive: Sinus Abdomen Exam: Positive: Soft, Negative: Tenderness Extremity Exam: Negative: Tenderness, Swelling Psych Exam: Positive: Oriented x 3 Assessment /Plan Problems (1) Liver mass Status: Acute Problem Text: * 2cm mass imvolving common hepatic and common bile duct * spoke with dr tobin who will perform a PTHD and biopsy of the mass (2) Hyperbilirubinemia Status: Acute Problem Text: * likely due to obstructing mass vs stricture * pt is scheduled for intervention procedure today (3) Jaundice Status: Acute (4) Diabetes Status: Chronic Response to Treatment: Stable Problem Text: insulin sliding scale with coverage and accu checks (5) Hyperlipidemia Status: Chronic Response to Treatment: Stable Problem Text: continue home medication (6) Parkinson disease Status: Chronic Response to Treatment: Stable (7) COPD (chronic obstructive pulmonary disease) Status: Chronic Response to Treatment: Stable (8) KEELY (obstructive sleep apnea) Status: Chronic Response to Treatment: Stable (9) Hypertension Status: Chronic Response to Treatment: Stable (10) History of lung cancer Plan/VTE VTE Prophylaxis Ordered?: Yes VS, I&O, 24H, Fishbone Vital Signs/I&O Vital Signs Date Time Temp Pulse Resp B/P (MAP) Pulse Ox O2 Delivery O2 Flow Rate FiO2 09/14/16 14:00 98.4 79 18 154/80 (104) 97 Room Air 09/13/16 14:01 2.0 I&O- Last 24 Hours up to 6 AM 09/14/16 05:59 Intake Total 2530 ml Output Total 750 ml Balance 1780 ml Laboratory Data 24H LABS Laboratory Tests 2 09/13/16 20:20: Bedside Glucose (Misc Panel) 204H 09/14/16 06:57: Anion Gap 7L, Glomerular Filtration Rate > 60.0, Blood Urea Nitrogen 11, Creatinine 0.90, Sodium Level 136, Potassium Level 4.2, Chloride Level 100, Carbon Dioxide Level 29, Calcium Level 9.6, Aspartate Amino Transf (AST/SGOT) 217H, Alanine Aminotransferase (ALT/SGPT) 49, Alkaline Phosphatase 1144H, Total Bilirubin 19.2*H, Total Protein 7.5, Albumin 2.7L, Magnesium Level 2.7H, Ammonia 38H, Albumin/Globulin Ratio 0.56L 09/14/16 08:05: Prothrombin Time 13.6, Prothromb Time International Ratio 1.03 CBC/BMP Laboratory Tests 09/14/16 06:57 Red Blood Count 4.36, Mean Corpuscular Volume 98.0 H, Mean Corpuscular Hemoglobin 31.3, Mean Corpuscular Hemoglobin Concent 32.0, Red Cell Distribution Width 14.5, Calcium Level 9.6, Aspartate Amino Transf (AST/SGOT) 217 H, Alanine Aminotransferase (ALT/SGPT) 49, Alkaline Phosphatase 1144 H, Total Bilirubin 19.2 *H, Total Protein 7.5, Albumin 2.7 L Microbiology Microbiology 09/11/16 Blood Culture - Preliminary, Resulted No Growth after 72 hours. All specime... 09/11/16 Blood Culture - Preliminary, Resulted No Growth after 72 hours. All specime... 09/11/16 Urine Culture - Final, Complete JESSICA LAURA DO Sep 14, 2016 18:07
[2016-09-14] MEDS: fentaNYL 100 MCG/2 ML INJECTION (J3010) IV PRN ×2 (19:12→19:21)
--- NOTE | 2016-09-14 19:19 | REPKIM ---
CLINICAL HISTORY: Patient presents with severely elevated bilirubin, obstructive jaundice and allison hepatis mass. Unsuccessful ERCP. The referring service has asked a PTC/PTBD possible endobiliary biopsy. PROCEDURE PERFORMED: 1. Percutaneous Transhepatic Cholangiogram 2. Endobiliary bile duct allison hepatis mass Biopsy 3. Internal-External Biliary Drainage Catheter (stent) Placement INTERVENTIONALIST: Neftali Doll MD CONSENT: The risks, benefits and alternatives to the procedure were explained to the patient and informed written consent was obtained. SEDATION: Sedation and analgesia was provided by the Anesthesiology Dept. MEDICATIONS: Local Lidocaine and Cipro 400 mg IV CONTRAST: 95 mL Isovue 300 EBL: less than 15 mL FLUORO TIME: 32 minutes DEVICES USED: 10F Internal-External Biliary Catheter (stent) Lot#[id number], Biopsy Forceps PROCEDURE/FINDINGS: The patient was brought to the interventional radiology suite where a timeout procedure was performed. The patient received prophylactic Cipro IV antibiotics. The patient was placed in the supine position and abdomen prepped and draped in a sterile fashion. Ultrasound of the abdomen showed moderate dilation of the intrahepatic biliary tree. Using ultrasound and fluoroscopic guidance, a 21-gauge Accustick needle was advanced into the peripheral aspect of the right posterior segment intrahepatic biliary ductal branch. Using this access, the Accustick catheter was advanced into the central confluence of the biliary duct. A sample of intrahepatic bile was sent for culture. Contrast was injected and a cholangiogram was performed. This showed complete obstruction of the biliary system at the level of the allison hepatis juct below the level of intrahepatic bile duct confluence. This showed no free antegrade flow of contrast. Catheter exchange was made and a 6-Portuguese sheath was introduced and its tip positioned in the bile duct over a guidewire. A 5-F Kumpe catheter was coaxially advanced. Then with the aid of a hydrophilic guidewire, the catheter was advanced across the biliary obstruction into the small bowel. Sheath exchange was performed and an 8-Portuguese Balkan was advanced over the guidewire and positioned at the intrahepatic biliary confluence. Using fluoroscopic guidance, a Clamshell forceps biopsy device was advanced through the sheath and a total of 8 biopsies performed in the region of the biliary obstruction at the allison hepatis. The specimens were sent to pathology. The sheath was removed over the guidewire. Then a 10.2-Portuguese internal-external biliary drainage catheter was introduced after serial dilation of its tract. The distal loop of the biliary catheter was formed and locked in the small bowel. Additional sideholes were made along the catheter for optimal intrahepatic biliary decompression. Then contrast was injected to ensure the side holes of the catheter were appropriately positioned. The drainage catheter was then secured to the skin with 2-0 Prolene suture and covered with a sterile dressing. The drainage catheter was flushed and connected to a gravity drainage bag for optimal biliary decompression. The patient tolerated the procedure well with no immediate complications. This procedure was performed using ultrasound and fluoroscopy. Dr. Doll was present. IMPRESSION: 1. Cholangiogram demonstrates moderate intrahepatic biliary ductal dilation associated with complete obstruction at the allison hepatis region just below the level of intrahepatic biliary ductal confluence. There is no free antegrade flow of contrast into the small bowel. A sample of the intrahepatic bilious fluid sent for c/s. 2. Successful placement of 10F interal-external biliary drainage catheter via the right posterior segment intrahepatic biliary ductal branch with its tip positioned in the small bowel as discussed above. 3. Successful endobiliary biopsy of the allison hepatis mass. Plan to cap the internal-external biliary catheter when bilirubin decreases close to wnls in order to allow internal drainage only. Findings and plan discussed via phone with Dr. Hubbard and patient's family. cc: DO Addison Meade MD Gurpreet Singh, MD MTDD
[2016-09-14] MEDS ORDERED: ONDANSETRON 4MG/2ML VIAL (J2405) IV PRN (19:30)
[2016-09-14] MEDS ORDERED: PERCOCET 5MG/325MG TAB PO PRN ×2 (19:30→23:00)
[2016-09-14] MEDS ORDERED: LABETALOL HCL 100 MG/20 ML VIAL IV SCH (19:30)
[2016-09-14] MEDS ORDERED: LR 1,000 ML IV SCH (19:30)
[2016-09-14] MEDS ORDERED: PERCOCET 5MG/325MG TAB As Ordered ONE (19:39)
[2016-09-14] MEDS: SIMVASTATIN 10 MG TAB PO SCH (21:00)
[2016-09-15 00:15] VITALS: BP 135/67
[2016-09-15 01:15] VITALS: BP 126/72
[2016-09-15 06:00] VITALS: BP 142/74
[2016-09-15] MEDS ORDERED: CIPROFLOXACIN 500 MG TAB PO SCH (06:00)
[2016-09-15 06:40] LABS: MEAN CORPUSCULAR HEMOGLOBIN 31.6 pg (27.0-33.0); MEAN CORPUSCULAR HGB CONC 32.8 g/dl (32.0-36.5); MEAN CORPUSCULAR VOLUME 96.6 fl (80.0-96.0)
[2016-09-15] MEDS: ADVAIR DISKUS 250/50 INH PWD INH SCH ×2 (07:22→20:36)
[2016-09-15 07:26] LABS: ALBUMIN 2.6 GM/DL (3.2-5.2); ALBUMIN/GLOBULIN RATIO 0.76 (1.00-1.93); ALKALINE PHOSPHATASE 1076 U/L (45-117); ALT/SGPT 86 U/L (12-78); ANION GAP 7 MEQ/L (8-16); AST/SGOT 234 U/L (15-37); BLOOD UREA NITROGEN 15 MG/DL (7-18); CALCIUM LEVEL 8.5 MG/DL (8.8-10.2); CARBON DIOXIDE LEVEL 30 MEQ/L (21-32); CHLORIDE LEVEL 102 MEQ/L (98-107); CREATININE FOR GFR 0.92 MG/DL (0.70-1.30); GLOMERULAR FILTRATION RATE > 60.0 (>42); GLUCOSE, FASTING 149 MG/DL (83-110); MAGNESIUM LEVEL 2.5 MG/DL (1.8-2.4); POTASSIUM SERUM 4.1 MEQ/L (3.5-5.1); SODIUM LEVEL 139 MEQ/L (136-145)
[2016-09-15 07:35] LABS: BILIRUBIN,TOTAL 18.4 MG/DL (0.2-1.0)
[2016-09-15] MEDS: OMEPRAZOLE 20 MG CAP PO SCH (08:45)
[2016-09-15] MEDS: SINEMET**CR** 25/100 TABCR PO SCH ×4 (08:45→20:59)
[2016-09-15] MEDS: MULTIVITAMINS CHILDREN'S CHEWABLE TABLET PO SCH (08:45)
[2016-09-15] MEDS: PRAMIPEXOLE 1 MG TAB PO SCH ×3 (08:45→20:59)
[2016-09-15] MEDS ORDERED: NS 1,000 ML IV SCH (11:30)
[2016-09-15] MEDS: SODIUM CHLORIDE 0.9% INJ 10 ML SYR XX SCH (12:21)
[2016-09-15] MEDS: HumaLOG INSULIN (NovoLOG) PER UNIT SC SCH ×3 (12:22→21:00)
[2016-09-15 14:00] VITALS: BP 158/77
[2016-09-15] MEDS ORDERED: IBUPROFEN 400 MG TAB PO PRN (15:45)
[2016-09-15 16:44] VITALS: O2SAT 95
[2016-09-15] MEDS: CIPROFLOXACIN 400 MG in APPROPRIATE DILUENT 1 EA IV SCH (16:58)
--- NOTE | 2016-09-15 20:10 | IPNPDOC ---
Subjective Date Seen The patient was seen on 09/15/16. Subjective Chief Complaint/HPI The patient is a 75-year-old male admitted with a reason for visit of Hyperbilirubinemia. Events since last encounter Patient seen and examined at bedside. Denied fevers, chills, chest pain, SOB, nausea, vomiting, diarrhea, constipation. States he is able to eat and drink well now since the EGD. Does admit that he is feeling generally weak, fatigued, and has some soreness in his abdomen after the procedure. Otherwise, he offers no acute complaints. General: Denies: Chills, Fatigue Constitutional: Reports: Fatigue, Denies: Chills, Fever ENT: Denies: Sore Throat Skin: Reports: Jaundice, Denies: Rash Pulmonary: Denies: Dyspnea, Cough Cardiovascular: Denies: Chest Pain, Palpitations Gastrointestinal: Reports: Abdominal Pain, Denies: Nausea, Vomiting, Diarrhea, Constipation Neurological: Reports: Weakness Psych: Reports: Mood Normal Objective Physical Examination General Exam: Positive: Alert, Cooperative, No Acute Distress, Other (Lying comfortably in bed. Noticeable jaundice around eyes and face.) Eye Exam: Positive: Sclera icteric ENT Exam: Positive: Atraumatic Neck Exam: Positive: Supple, Negative: thyromegaly Chest Exam: Positive: Clear to auscultation, Normal air movement Heart Exam: Positive: Rate Normal, Normal S1, Normal S2 Abdomen Exam: Positive: Soft, Tenderness (some tenderness to palpation in R upper and middle quadrants near site of patient's drain.) Extremity Exam: Positive: Tenderness, Negative: Swelling Skin Exam: Positive: Other skin issue (noticeable jaundice in face especially around eyes), Negative: Rash Neuro Exam: Positive: Normal Gait, Normal Speech, Normal Tone Psych Exam: Positive: Mental status NL, Mood NL, Oriented x 3 Other physical findings R abdomen Drainage Total: 120 mL today, 65 mL yesterday. Assessment /Plan Assessment 75 yo M is presenting for dysphagia and hyperbilirubinemia with obstructive jaundice. Found to have liver mass. Problems (1) Liver mass Status: Acute Problem Text: * 2cm mass involving common hepatic and common bile duct * Dr. Doll performed a PTHD and biopsy of the mass. Biopsy results pending. Will follow up results when available. * Dr. Doll recommends gentle hydration with lactated ringers at 40 mLs/hr (~1 liter/day). Also recommends ciprofloxacin BID for the next couple of days prior to capping the drain for prophylaxis of cholangitis. States he will cap the drain that he placed either tomorrow or Monday. Depending upon results of biopsy , Dr. Doll will have further recommendations regarding management. (2) Hyperbilirubinemia Status: Acute Problem Text: * likely due to obstructing mass vs stricture * patient has installed percutaneous transhepatic internal-external biliary drainage catheter yesterday. Tip is in the small bowel. Will monitor bilirubin levels for downward trend. Will be capped as per Dr. Doll. (3) Jaundice Status: Acute Problem Text: Painless obstructive jaundice may be secondary to hepatic mass. Will confirm with biopsy results. Jaundice slightly improving. (4) Diabetes Status: Chronic Response to Treatment: Stable Problem Text: continue ISS and fingersticks at AC and HS. (5) Hyperlipidemia Status: Chronic Response to Treatment: Stable Problem Text: continue simvastatin. (6) Parkinson disease Status: Chronic Response to Treatment: Stable Problem Text: Continue sinimet. (7) COPD (chronic obstructive pulmonary disease) Status: Chronic Response to Treatment: Stable Problem Text: Continue advair diskus and duoneb q2h PRN SOB/wheezing. (8) KEELY (obstructive sleep apnea) Status: Chronic Response to Treatment: Stable Problem Specific Plan: Monitor Clinically (9) Hypertension Status: Chronic Response to Treatment: Stable Problem Text: BP stable. Continue to monitor. (10) History of lung cancer Problem Text: Status-post resection of NURIA in 2000. Plan/VTE VTE Prophylaxis Ordered?: Yes Plan Diet: Continue Current Activity: Continue Current VS, I&O, 24H, Fishbone Vital Signs/I&O Vital Signs Date Time Temp Pulse Resp B/P (MAP) Pulse Ox O2 Delivery O2 Flow Rate FiO2 09/15/16 17:50 99.0 09/15/16 16:44 95 Room Air 0.0 09/15/16 14:00 77 16 158/77 (104) I&O- Last 24 Hours up to 6 AM 09/15/16 06:00 Intake Total 780 ml Output Total 985 ml Balance -205 ml Laboratory Data 24H LABS Laboratory Tests 2 09/14/16 20:45: Bedside Glucose (Misc Panel) 115H 09/15/16 06:27: Anion Gap 7L, Glomerular Filtration Rate > 60.0, Blood Urea Nitrogen 15, Creatinine 0.92, Sodium Level 139, Potassium Level 4.1, Chloride Level 102, Carbon Dioxide Level 30, Calcium Level 8.5L, Aspartate Amino Transf (AST/SGOT) 234H, Alanine Aminotransferase (ALT/SGPT) 86H, Alkaline Phosphatase 1076H, Total Bilirubin 18.4*H, Total Protein 6.0L, Albumin 2.6L, Magnesium Level 2.5H, Ammonia 36H, Albumin/Globulin Ratio 0.76L 09/15/16 11:56: Bedside Glucose (Misc Panel) 157H 09/15/16 17:17: Bedside Glucose (Misc Panel) 114H CBC/BMP Laboratory Tests 09/15/16 06:27 Red Blood Count 3.94 L, Mean Corpuscular Volume 96.6 H, Mean Corpuscular Hemoglobin 31.6, Mean Corpuscular Hemoglobin Concent 32.8, Red Cell Distribution Width 15.0 H, Calcium Level 8.5 L, Aspartate Amino Transf (AST/SGOT ) 234 H, Alanine Aminotransferase (ALT/SGPT) 86 H, Alkaline Phosphatase 1076 H, Total Bilirubin 18.4 *H, Total Protein 6.0 L, Albumin 2.6 L Microbiology Microbiology 09/15/16 Blood Culture, Received Pending 09/11/16 Blood Culture - Preliminary, Resulted No Growth after 72 hours. All specime... 09/11/16 Blood Culture - Preliminary, Resulted No Growth after 72 hours. All specime... 09/14/16 Body Fluid Culture, Received Pending 09/14/16 Anaerobic Culture, Received Pending 09/14/16 Body Fluid Culture, Received Pending 09/11/16 Urine Culture - Final, Complete GME ATTESTATION GME ATTESTATION My preceptor for this patient encounter was Dr. Jeffrey Hubbard, and was physically present in the building during the encounter and was fully available. As needed , all aspects of the patient interview, examination, medical decision making process, and medical care plan development were reviewed and approved by the preceptor. Preceptor is aware and concurs with the plan as stated in the body of this note and will attest to such by his/her cosignature. VICKY SOLER OGME-1 Sep 15, 2016 20:10
[2016-09-15] MEDS: SIMVASTATIN 10 MG TAB PO SCH (20:59)
[2016-09-15 22:00] VITALS: BP 136/65
[2016-09-16] MEDS: CIPROFLOXACIN 400 MG in APPROPRIATE DILUENT 1 EA IV SCH ×2 (04:03→16:30)
[2016-09-16 04:22] VITALS: O2SAT 94
[2016-09-16 06:00] VITALS: BP 159/76
[2016-09-16 06:45] LABS: MEAN CORPUSCULAR HEMOGLOBIN 31.3 pg (27.0-33.0); MEAN CORPUSCULAR HGB CONC 32.3 g/dl (32.0-36.5); MEAN CORPUSCULAR VOLUME 96.9 fl (80.0-96.0); WHITE BLOOD COUNT 7.9 K/mm3 (4.0-10.0)
[2016-09-16 07:02] LABS: ALBUMIN 2.3 GM/DL (3.2-5.2); ALBUMIN/GLOBULIN RATIO 0.56 (1.00-1.93); ALKALINE PHOSPHATASE 928 U/L (45-117); ALT/SGPT 79 U/L (12-78); ANION GAP 7 MEQ/L (8-16); AST/SGOT 105 U/L (15-37); BILIRUBIN,TOTAL 10.2 MG/DL (0.2-1.0); BLOOD UREA NITROGEN 13 MG/DL (7-18); CALCIUM LEVEL 8.8 MG/DL (8.8-10.2); CARBON DIOXIDE LEVEL 29 MEQ/L (21-32); CHLORIDE LEVEL 102 MEQ/L (98-107); CREATININE FOR GFR 0.72 MG/DL (0.70-1.30); GLOMERULAR FILTRATION RATE > 60.0 (>42); GLUCOSE, FASTING 111 MG/DL (83-110); MAGNESIUM LEVEL 2.4 MG/DL (1.8-2.4); POTASSIUM SERUM 3.8 MEQ/L (3.5-5.1); SODIUM LEVEL 138 MEQ/L (136-145); TOTAL PROTEIN 6.4 GM/DL (6.4-8.2)
[2016-09-16] MEDS: ADVAIR DISKUS 250/50 INH PWD INH SCH ×2 (07:16→19:49)
[2016-09-16] MEDS: HumaLOG INSULIN (NovoLOG) PER UNIT SC SCH ×4 (08:01→21:00)
[2016-09-16] MEDS: OMEPRAZOLE 20 MG CAP PO SCH (08:02)
[2016-09-16] MEDS: SINEMET**CR** 25/100 TABCR PO SCH ×4 (08:02→19:43)
[2016-09-16] MEDS: PRAMIPEXOLE 1 MG TAB PO SCH ×3 (08:02→19:44)
[2016-09-16] MEDS: MULTIVITAMINS CHILDREN'S CHEWABLE TABLET PO SCH (08:02)
[2016-09-16] MEDS: SODIUM CHLORIDE 0.9% INJ 10 ML SYR XX SCH (09:22)
[2016-09-16] MEDS: SIMETHICONE 80 MG CHEW TAB PO PRN ×2 (11:53→17:27)
[2016-09-16 14:00] VITALS: BP 150/84
--- NOTE | 2016-09-16 18:20 | IPNPDOC ---
Subjective Date Seen The patient was seen on 09/16/16. Subjective Chief Complaint/HPI The patient is a 75-year-old male admitted with a reason for visit of Hyperbilirubinemia. Events since last encounter pt seen and examined, doing well no overnight events, pt had a temp yesterday afternoon Constitutional: Reports: Fever Objective Physical Examination General Exam: Positive: Alert, Cooperative, No Acute Distress, Other (Lying comfortably in bed. Noticeable jaundice around eyes and face.) Eye Exam: Positive: Sclera icteric ENT Exam: Positive: Atraumatic Neck Exam: Positive: Supple, Negative: thyromegaly Chest Exam: Positive: Clear to auscultation, Normal air movement Heart Exam: Positive: Rate Normal, Normal S1, Normal S2 Abdomen Exam: Positive: Soft, Tenderness (some tenderness to palpation in R upper and middle quadrants near site of patient's drain.) Extremity Exam: Positive: Tenderness, Negative: Swelling Skin Exam: Positive: Other skin issue (noticeable jaundice in face especially around eyes), Negative: Rash Neuro Exam: Positive: Normal Gait, Normal Speech, Normal Tone Psych Exam: Positive: Mental status NL, Mood NL, Oriented x 3 Assessment /Plan Problems (1) Liver mass Status: Acute Problem Text: * 2cm mass involving common hepatic and common bile duct * Dr. Tobin performed a PTHD and biopsy of the mass. 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 Tip is in the small bowel. Will monitor bilirubin levels for downward trend. Will be capped as per Dr. Tobin. (3) Jaundice Status: Acute Response to Treatment: Improving Problem Text: Painless obstructive jaundice may be secondary to hepatic mass. (4) Diabetes Status: Chronic Response to Treatment: Stable Problem Text: continue ISS and fingersticks at AC and HS. (5) Hyperlipidemia Status: Chronic Response to Treatment: Stable Problem Text: continue simvastatin. (6) Parkinson disease Status: Chronic Response to Treatment: Stable Problem Text: Continue sinimet. (7) COPD (chronic obstructive pulmonary disease) Status: Chronic Response to Treatment: Stable Problem Text: Continue advair diskus and duoneb q2h PRN SOB/wheezing. (8) KEELY (obstructive sleep apnea) Status: Chronic Response to Treatment: Stable Problem Specific Plan: Monitor Clinically (9) Hypertension Status: Chronic Response to Treatment: Stable Problem Text: BP stable. Continue to monitor. (10) History of lung cancer Problem Text: Status-post resection of NURIA in 2000. Plan/VTE VTE Prophylaxis Ordered?: Yes Plan Diet: Continue Current Activity: Continue Current VS, I&O, 24H, Fishbone Vital Signs/I&O Vital Signs Date Time Temp Pulse Resp B/P (MAP) Pulse Ox O2 Delivery O2 Flow Rate FiO2 09/16/16 14:00 98.9 87 18 150/84 (106) 96 Room Air 09/16/16 04:22 0.0 I&O- Last 24 Hours up to 6 AM 09/16/16 06:00 Intake Total 1890 ml Output Total 1550 ml Balance 340 ml Laboratory Data 24H LABS Laboratory Tests 2 09/15/16 20:30: Bedside Glucose (Misc Panel) 100 09/16/16 06:27: Anion Gap 7L, Glomerular Filtration Rate > 60.0, Blood Urea Nitrogen 13, Creatinine 0.72, Sodium Level 138, Potassium Level 3.8, Chloride Level 102, Carbon Dioxide Level 29, Calcium Level 8.8, Aspartate Amino Transf (AST/SGOT) 105H, Alanine Aminotransferase (ALT/SGPT) 79H, Alkaline Phosphatase 928H, Total Bilirubin 10.2H, Total Protein 6.4, Albumin 2.3L, Magnesium Level 2.4, Ammonia < 10, Albumin/Globulin Ratio 0.56L 09/16/16 11:45: Bedside Glucose (Misc Panel) 123H 09/16/16 16:45: Bedside Glucose (Misc Panel) 137H CBC/BMP Laboratory Tests 09/16/16 06:27 Red Blood Count 3.79 L, Mean Corpuscular Volume 96.9 H, Mean Corpuscular Hemoglobin 31.3, Mean Corpuscular Hemoglobin Concent 32.3, Red Cell Distribution Width 15.0 H, Calcium Level 8.8, Aspartate Amino Transf (AST/SGOT) 105 H, Alanine Aminotransferase (ALT/SGPT) 79 H, Alkaline Phosphatase 928 H, Total Bilirubin 10.2 H, Total Protein 6.4, Albumin 2.3 L Microbiology Microbiology 09/15/16 Blood Culture - Preliminary, Resulted No growth after 24 hours . All specim... 09/11/16 Blood Culture - Final, Complete NO GROWTH AFTER 5 DAYS 09/11/16 Blood Culture - Final, Complete NO GROWTH AFTER 5 DAYS 09/14/16 Body Fluid Culture, Received Pending 09/14/16 Anaerobic Culture - Final, Complete 09/14/16 Body Fluid Culture - Final, Complete 09/11/16 Urine Culture - Final, Complete JESSICA LAURA DO Sep 16, 2016 18:20
[2016-09-16] MEDS: SIMVASTATIN 10 MG TAB PO SCH (19:43)
[2016-09-16 20:25] VITALS: O2SAT 98
[2016-09-16 22:00] VITALS: BP_SYST 67
[2016-09-17] MEDS: CIPROFLOXACIN 500 MG TAB PO SCH (05:58)
[2016-09-17 06:00] VITALS: BP 177/79
[2016-09-17 07:14] LABS: MEAN CORPUSCULAR HEMOGLOBIN 31.9 pg (27.0-33.0); MEAN CORPUSCULAR HGB CONC 33.1 g/dl (32.0-36.5); MEAN CORPUSCULAR VOLUME 96.4 fl (80.0-96.0); WHITE BLOOD COUNT 9.9 K/mm3 (4.0-10.0)
[2016-09-17 07:20] LABS: ALBUMIN 2.5 GM/DL (3.2-5.2); ALBUMIN/GLOBULIN RATIO 0.56 (1.00-1.93); ALKALINE PHOSPHATASE 783 U/L (45-117); ALT/SGPT 35 U/L (12-78); ANION GAP 6 MEQ/L (8-16); AST/SGOT 71 U/L (15-37); BILIRUBIN,TOTAL 9.5 MG/DL (0.2-1.0); BLOOD UREA NITROGEN 10 MG/DL (7-18); CALCIUM LEVEL 9.2 MG/DL (8.8-10.2); CARBON DIOXIDE LEVEL 30 MEQ/L (21-32); CHLORIDE LEVEL 102 MEQ/L (98-107); CREATININE FOR GFR 0.73 MG/DL (0.70-1.30); GLOMERULAR FILTRATION RATE > 60.0 (>42); GLUCOSE, FASTING 95 MG/DL (83-110); MAGNESIUM LEVEL 2.4 MG/DL (1.8-2.4); POTASSIUM SERUM 3.8 MEQ/L (3.5-5.1); SODIUM LEVEL 138 MEQ/L (136-145)
[2016-09-17] MEDS: HumaLOG INSULIN (NovoLOG) PER UNIT SC SCH ×4 (07:30→21:00)
[2016-09-17] MEDS ORDERED: MOM 30ML SUSPENSION UDC PO PRN (08:00)
[2016-09-17] MEDS: ADVAIR DISKUS 250/50 INH PWD INH SCH ×2 (08:01→19:23)
[2016-09-17 10:21] VITALS: BP 145/78
[2016-09-17] MEDS: SINEMET**CR** 25/100 TABCR PO SCH ×4 (10:25→20:54)
[2016-09-17] MEDS: PRAMIPEXOLE 1 MG TAB PO SCH ×3 (10:25→20:52)
[2016-09-17] MEDS: MULTIVITAMINS CHILDREN'S CHEWABLE TABLET PO SCH (10:26)
[2016-09-17] MEDS: SENOKOT S TAB PO SCH ×2 (10:26→20:53)
[2016-09-17] MEDS: OMEPRAZOLE 20 MG CAP PO SCH (10:26)
[2016-09-17] MEDS: ENOXAPARIN 40 MG/0.4 ML SYRINGE (J1650) SC SCH (10:27)
[2016-09-17] MEDS: SIMETHICONE 80 MG CHEW TAB PO PRN ×3 (10:29→18:23)
[2016-09-17] MEDS: SODIUM CHLORIDE 0.9% INJ 10 ML SYR XX SCH (10:35)
--- NOTE | 2016-09-17 10:57 | IPNPDOC ---
Subjective Date Seen The patient was seen on 09/17/16. Subjective Chief Complaint/HPI The patient is a 75-year-old male admitted with a reason for visit of Hyperbilirubinemia. Events since last encounter Patient seen and examined sitting up in chair. Is in high spirits today and states he will be going home tomorrow. Denies fevers, chills, chest pain, SOB, headache, dizziness, lightheadedness, abdominal pain, nausea, vomiting, diarrhea. Denies any excessive fatigue. States he slept well last evening. Is eating and drinking well. Has not moved his bowels at all this week. States he ordered prune juice and a high fiber breakfast this morning to help with his constipation. He is quite relieved after learning the results of his biopsy. General: Reports: Normal Appetite, Denies: Chills, Fatigue Constitutional: Denies: Chills, Fever, Fatigue ENT: Denies: Head Aches Skin: Reports: Jaundice Pulmonary: Denies: Dyspnea Cardiovascular: Denies: Chest Pain Gastrointestinal: Reports: Constipation, Denies: Nausea, Vomiting, Abdominal Pain, Diarrhea Genitourinary: Denies: Retention Hematologic: Denies: Bruising Musculoskeletal: Denies: Joint Pain Neurological: Denies: Weakness Psych: Reports: Mood Normal Objective Physical Examination General Exam: Positive: Alert, Cooperative, No Acute Distress, Other (Sitting up comfortably in chair. Noticeable jaundice around eyes, face, abdomen.) Eye Exam: Positive: Sclera icteric ENT Exam: Positive: Atraumatic Neck Exam: Positive: Supple, Negative: JVD, thyromegaly, Lymphadenopathy Chest Exam: Positive: Clear to auscultation, Normal air movement, Other (Lung sounds diminished in L mid-upper lobe. ) Heart Exam: Positive: Rate Normal, Normal S1, Normal S2 Abdomen Exam: Positive: Soft, Other (R abdominal drain has been capped. ), Negative: Tenderness Extremity Exam: Negative: Edema, Tenderness Skin Exam: Positive: Other skin issue (noticeable jaundice in face, abdomen, and especially around eyes), Negative: Rash Neuro Exam: Positive: Normal Gait, Normal Speech, Normal Tone Psych Exam: Positive: Mental status NL, Mood NL, Oriented x 3 Assessment /Plan Assessment 75 yo M is presenting for dysphagia and hyperbilirubinemia with obstructive jaundice. Found to have liver mass. Biopsy results show adenomatous polyp/ tubular adenoma. No high grade dysplasia or malignancy identified. Problems (1) Liver mass Status: Acute Problem Text: * 2cm mass involving common hepatic and common bile duct * Dr. Doll performed a PTHD and biopsy of the mass. Biopsy showed adenocarcinoma no high grade dysplasia or malignancy identified. * Catheter was capped yesterday. Per nursing, patient's family will be educated regarding how to access R abdominal drain if needed. * Blood cx show NGTD x 24 hours from 09/15. Blood cx from 09/11 show NGTD x 5 days. * Anaerobic cx of the bile: showed no growth anaerobically. * Body fluid cx of the bile: showed no growth aerobically. * Ammonia level is WNL and <10. Total bilirubin level has gone down from 10.2 to 9.5. * AST and ALT are trending down and were 71 and 35 today respectively. Alk phos trended down to 783 from 928 yesterday. Albumin level was low at 2.5. * Urine cx: showed no growth. * Anticipate d/c in 24 hours. * Will recommend for patient to follow up as an outpatient in [place] with Dr. Anup Thayer for resection of adenoma. (2) Hyperbilirubinemia Status: Acute Problem Text: * likely due to obstructing mass vs stricture * patient has installed percutaneous transhepatic internal-external biliary drainage catheter yesterday. Tip is in the small bowel. * Bilirubin levels are trending downward. Catheter capped yesterday. Education for using catheter if needed will be provided to family. * Patient has been placed on ciprofloxacin PO and was changed to PO from IV yesterday. Was having fevers and we will continue this for a few days. (3) Jaundice Status: Acute Response to Treatment: Improving Problem Text: Still present. Painless obstructive jaundice probably secondary to hepatic mass. Will likely take time to resolve once bilirubin levels come down further to WNL. (4) Hypertension Status: Chronic Response to Treatment: Stable Problem Text: BP elevated this AM 177/79. Nurse had not given patient his antihypertensives today yet. Spoke to nurse to recheck. Continue to monitor. (5) Constipation Status: Acute Discussed With: Nurse Problem Specific Plan: Monitor Clinically Problem Text: * Have added Senokot S and milk of magnesia for bowel regimen. Will monitor for BM today. * On simethicone 80 mg TID PRN PO gas pain as well. (6) Hyperlipidemia Status: Chronic Response to Treatment: Stable Problem Text: continue simvastatin. (7) Diabetes Status: Chronic Response to Treatment: Stable Problem Text: continue ISS and fingersticks at AC and HS. (8) Parkinson disease Status: Chronic Response to Treatment: Stable Problem Text: Continue sinimet and mirapex. (9) COPD (chronic obstructive pulmonary disease) Status: Chronic Response to Treatment: Stable Problem Text: Continue advair diskus and duoneb q2h PRN SOB/wheezing. (10) KEELY (obstructive sleep apnea) Status: Chronic Response to Treatment: Stable Problem Specific Plan: Monitor Clinically (11) History of lung cancer Status: Resolved Problem Text: Status-post resection of NURIA in 2000. Plan/VTE VTE Prophylaxis Ordered?: Yes (lovenox 40 units SC daily) Plan Diet: Continue Current (Regular Diet) Activity: Continue Current Disposition Discharge to home tomorrow. VS, I&O, 24H, Fishbone Vital Signs/I&O Vital Signs Date Time Temp Pulse Resp B/P (MAP) Pulse Ox O2 Delivery O2 Flow Rate FiO2 09/17/16 10:21 145/78 (100) 09/17/16 08:02 89 09/17/16 06:00 98.2 18 96 NIPPV (BIPAP/CPAP) 09/16/16 04:22 0.0 I&O- Last 24 Hours up to 6 AM 09/17/16 06:00 Intake Total 2420 ml Output Total 2605 ml Balance -185 ml Laboratory Data 24H LABS Laboratory Tests 2 09/16/16 11:45: Bedside Glucose (Misc Panel) 123H 09/16/16 16:45: Bedside Glucose (Misc Panel) 137H 09/16/16 20:31: Bedside Glucose (Misc Panel) 135H 09/17/16 06:10: Anion Gap 6L, Glomerular Filtration Rate > 60.0, Blood Urea Nitrogen 10, Creatinine 0.73, Sodium Level 138, Potassium Level 3.8, Chloride Level 102, Carbon Dioxide Level 30, Calcium Level 9.2, Aspartate Amino Transf (AST/SGOT) 71H, Alanine Aminotransferase (ALT/SGPT) 35, Alkaline Phosphatase 783H, Total Bilirubin 9.5H, Total Protein 7.0, Albumin 2.5L, Magnesium Level 2.4, Ammonia < 10, Albumin/Globulin Ratio 0.56L CBC/BMP Laboratory Tests 09/17/16 06:10 Red Blood Count 3.72 L, Mean Corpuscular Volume 96.4 H, Mean Corpuscular Hemoglobin 31.9, Mean Corpuscular Hemoglobin Concent 33.1, Red Cell Distribution Width 15.0 H, Calcium Level 9.2, Aspartate Amino Transf (AST/SGOT) 71 H, Alanine Aminotransferase (ALT/SGPT) 35, Alkaline Phosphatase 783 H, Total Bilirubin 9.5 H, Total Protein 7.0, Albumin 2.5 L Microbiology Microbiology 09/15/16 Blood Culture - Preliminary, Resulted No growth after 24 hours . All specim... 09/11/16 Blood Culture - Final, Complete NO GROWTH AFTER 5 DAYS 09/11/16 Blood Culture - Final, Complete NO GROWTH AFTER 5 DAYS 09/14/16 Body Fluid Culture - Preliminary, Resulted Streptococcus Viridans Group 09/14/16 Anaerobic Culture - Final, Complete 09/14/16 Body Fluid Culture - Final, Complete 09/11/16 Urine Culture - Final, Complete VICKY SOLERME-1 Sep 17, 2016 10:57
[2016-09-17 14:00] VITALS: BP 157/74
[2016-09-17] MEDS: SIMVASTATIN 10 MG TAB PO SCH (20:52)
[2016-09-17 22:00] VITALS: BP 155/73
[2016-09-18] MEDS: CIPROFLOXACIN 500 MG TAB PO SCH (05:41)
[2016-09-18 06:00] VITALS: BP 142/78
[2016-09-18 06:32] LABS: MEAN CORPUSCULAR HEMOGLOBIN 31.7 pg (27.0-33.0); MEAN CORPUSCULAR HGB CONC 32.9 g/dl (32.0-36.5); MEAN CORPUSCULAR VOLUME 96.4 fl (80.0-96.0); RED CELL DISTRIBUTION WIDTH 14.6 % (11.5-14.5)
[2016-09-18 06:52] LABS: ALBUMIN 2.5 GM/DL (3.2-5.2); ALBUMIN/GLOBULIN RATIO 0.71 (1.00-1.93); ALKALINE PHOSPHATASE 678 U/L (45-117); ALT/SGPT 62 U/L (12-78); ANION GAP 5 MEQ/L (8-16); AST/SGOT 75 U/L (15-37); BILIRUBIN,TOTAL 8.1 MG/DL (0.2-1.0); BLOOD UREA NITROGEN 11 MG/DL (7-18); CALCIUM LEVEL 8.4 MG/DL (8.8-10.2); CARBON DIOXIDE LEVEL 28 MEQ/L (21-32); CHLORIDE LEVEL 101 MEQ/L (98-107); CREATININE FOR GFR 0.64 MG/DL (0.70-1.30); GLOMERULAR FILTRATION RATE > 60.0 (>42); GLUCOSE, FASTING 116 MG/DL (83-110); MAGNESIUM LEVEL 2.7 MG/DL (1.8-2.4); POTASSIUM SERUM 3.6 MEQ/L (3.5-5.1); SODIUM LEVEL 134 MEQ/L (136-145)
[2016-09-18] MEDS: ADVAIR DISKUS 250/50 INH PWD INH SCH (07:12)
[2016-09-18] MEDS: SENOKOT S TAB PO SCH (08:44)
[2016-09-18] MEDS: ENOXAPARIN 40 MG/0.4 ML SYRINGE (J1650) SC SCH ×2 (08:44→08:49)
[2016-09-18] MEDS: PRAMIPEXOLE 1 MG TAB PO SCH (08:44)
[2016-09-18] MEDS: SINEMET**CR** 25/100 TABCR PO SCH (08:45)
[2016-09-18] MEDS: MULTIVITAMINS CHILDREN'S CHEWABLE TABLET PO SCH (08:45)
[2016-09-18] MEDS: OMEPRAZOLE 20 MG CAP PO SCH (08:45)
[2016-09-18] MEDS: HumaLOG INSULIN (NovoLOG) PER UNIT SC SCH (08:46)
[2016-09-18] MEDS: SODIUM CHLORIDE 0.9% INJ 10 ML SYR XX SCH (08:47)
[2016-09-18] MEDS: SIMETHICONE 80 MG CHEW TAB PO PRN (08:51)
[2016-09-18] MEDS ORDERED: CIPR500T89 PO (09:57)
--- NOTE | 2016-09-18 10:41 | DSES ---
DATE OF ADMISSION: 09/11/2016 DATE OF DISCHARGE: PRIMARY CARE PHYSICIAN: Nolan Jacobs MD PRINCIPAL PROCEDURE: Endoscopic retrograde cholangiopancreatography (ERCP), Dr. Faustin, 09/13/2016. Benign-appearing esophageal stenosis noted, which was dilated, unable to pass ERCP scope easily into the stomach. Procedure aborted. OTHER PROCEDURE: Percutaneous transhepatic cholangiogram with internal-external biliary drainage catheter (stent) placed with endobiliary allison hepatis biopsy performed, Dr. Doll, interventional radiology, 09/14/2016. HISTORY: Fran Lane presented with jaundice. It was painless. Details are in the history and physical from admission. HOSPITAL COURSE: The patient was admitted to a medical bed. MRI scan showed polypoid soft tissue mass involving common hepatic/common bile duct 2 cm in size. ERCP was attempted and was unsuccessful. Interventional radiology was consulted. They performed biopsy. They only obtained a few detached strips of dysplastic columnar cells consistent with adenomatous change. There were no definite features of malignancy or high-grade dysplasia noted, but no stromal tissue was present; and, therefore, evaluation is considered incomplete. The patient is aware of this. After the drainage catheter was placed, his jaundice improved on a daily basis. Today, he is eager to go home, and bilirubin continues to trend down. He is taking by mouth well and wants to be discharged. PHYSICAL EXAMINATION: 142/78, pulse of 83, respiratory rate 20, 96% oxygen (O2) saturation. Physically jaundiced (my first day seeing him so I do not have a comparison). Lungs clear. Heart: Regular rate and rhythm. Abdomen: Soft, nontender. Biliary catheter right side. No peripheral edema. LABORATORIES: White count 10, hemoglobin 11.5, platelets 276. Sodium 134, potassium 3.6, bilirubin is 8.1 (it was 9.5 yesterday - the highest level was 19.2), albumin is 2.5, alkaline phosphatase 678. Biliary fluid grew out moderate Streptococcus viridans, a few Streptococcus salivarius. DISPOSITION: The patient discharged home in stable condition. Dr. Doll is contacted, Dr. Anup Chen at [facility], and endoscopic ultrasound biopsy is planned. The patient is to contact Dr. Chen on Monday for an appointment. Followup with Dr. Jacobs this week. Activity as tolerated. Regular diet. MEDICATIONS ON DISCHARGE: Are: - Cipro 500 mg daily - Sinemet 25/100 half tablet four times a day - Prilosec 40 mg daily - Mirapex 1.5 mg three times a day - Advair 250/50 one inhalation twice a day - Zocor 10 mg nightly (I would advise holding this until after his biliary procedure, and this will be discontinued upon discharge.) - ibuprofen on an as-needed basis The patient has type 2 diabetes. He is on metformin ER 500 mg daily as an outpatient. He can restart this upon discharge. He also is on torsemide 20 mg in the morning and 10 mg in the evening as an outpatient. Will discontinue the evening dose. He should be able to get by on just the 20-mg morning dose at this point until his by mouth intake gets back to baseline. He is on Azilect 1 mg daily for his parkinson's, which he can continue. As noted above, his simvastatin has been discontinued. The only new medication is the Cipro.
[2016-09-19] MEDS ORDERED: CLEO300C2 PO (12:30)
== END 2016-09-18 11:55 | disposition home or self-care (01) | DRG 441 ==
LOC: M ED 09:39 → M ED INP 14:40 → M MSPAV 15:38 → M MS5PR 09-13 12:50
PROVIDERS: ADMIT Internal Medicine; ATTEND Internal Medicine
PROC: 0D738ZZ Dilation of Lower Esophagus, Via Natural or Artificial Opening Endoscopic (ICD-10-PCS; principal; 2016-09-13 11:00)
PROC: 0F9930Z Drainage of Common Bile Duct with Drainage Device, Percutaneous Approach (ICD-10-PCS; 2016-09-14)
PROC: 0FB93ZX Excision of Common Bile Duct, Percutaneous Approach, Diagnostic (ICD-10-PCS; 2016-09-14)
DX: D13.5 Benign neoplasm of extrahepatic bile ducts (principal); K83.1 Obstruction of bile duct; K22.2 Esophageal obstruction; E11.9 Type 2 diabetes mellitus without complications; G20 Parkinson's disease; E80.6 Other disorders of bilirubin metabolism; I10 Essential (primary) hypertension; J44.9 Chronic obstructive pulmonary disease, unspecified; G47.33 Obstructive sleep apnea (adult) (pediatric); K21.9 Gastro-esophageal reflux disease without esophagitis; E78.5 Hyperlipidemia, unspecified; Z85.118 Personal history of other malignant neoplasm of bronchus and lung; Z79.82 Long term (current) use of aspirin; Z88.0 Allergy status to penicillin; Z90.49 Acquired absence of other specified parts of digestive tract; Z90.2 Acquired absence of lung [part of]; Z87.891 Personal history of nicotine dependence; Z79.899 Other long term (current) drug therapy; Z79.84 Long term (current) use of oral hypoglycemic drugs; Z99.89 Dependence on other enabling machines and devices; K59.00 Constipation, unspecified

== ENCOUNTER → 2016-10-03 | Outpatient (CLI) | payer MEDICARE, OTHER ==
[~2016-10-03] MED LIST changes: +ALEV220C2 PO; +AMIL5TA PO; +ARTI99.0 OU; +ASPI1TAB PO; +AZIL0.5T PO; +AZIL1TAB PO; +CIPR-249 PO; +CLEO300C2 PO; +COMBAER6 INH; +FLON1SPR; +METF500T13 PO; +METF500T4 PO; +MIRA1.5T2 PO; +MIRA1.5T4 PO; +MULT1TAB10 PO; +OMEP20CA3 PO; +REST0.05 OU; +SINE25TA PO; +SINE25TA5 PO; +TORS10TA3 PO; +TORS20TA2 PO; +ZOCO10TA PO
[2016-10-03 14:36] LABS: MEAN CORPUSCULAR HEMOGLOBIN 31.8 pg (27.0-33.0); MEAN CORPUSCULAR HGB CONC 33.3 g/dl (32.0-36.5); MEAN CORPUSCULAR VOLUME 95.6 fl (80.0-96.0); RED CELL DISTRIBUTION WIDTH 14.7 % (11.5-14.5); WHITE BLOOD COUNT 6.2 K/mm3 (4.0-10.0)
== END ==
LOC: M LAB 12:36
PROVIDERS: ATTEND Surgery
DX: K83.9 Disease of biliary tract, unspecified (principal); R97.8 Other abnormal tumor markers

== ENCOUNTER → 2016-10-06 | Outpatient (CLI) | payer MEDICARE, OTHER ==
[~2016-10-06] MED LIST changes: +ISOVUE-370 76% 100ML VIAL (Q9967) As Ordered ONE
--- NOTE | 2016-10-06 09:33 | REP ---
CT study of the chest with IV contrast: History: Common bile duct mass. Comparison chest CT study is from May 30, 2016. CT contrast dose: 75 ml of intravenous Isovue 370. CT findings: Digital assistant purchasing manager radiograph demonstrates biliary drainage catheter in the right upper quadrant of the abdomen and clips in the left mediastinal region. Axial images show old healed rib fractures and postsurgical changes on the left including clips at the mediastinal level. The patient appears to be status post left upper lobectomy. These findings are unchanged. No infiltrate or pleural effusion is seen. There is minimal linear fibrosis at the right base again noted. Emphysematous changes are seen in the upper lung zones , right more prominently affected than left. No significant pulmonary nodule or mass lesion is seen. No infiltrate is noted. No pleural or pericardial effusion is seen. No hilar or mediastinal mass or adenopathy is observed. The internal external biliary drainage catheter is noted in the right flank coursing through the liver. There are small cysts in each upper renal pole. Impression: Status post left upper lobectomy. Mild fibrotic changes and right upper lobe emphysematous changes are noted. No acute cardiopulmonary abnormality seen. Signed by Emir Calero MD 10/06/2016 09:35 A
== END ==
LOC: M RAD 07:53
PROVIDERS: ATTEND Surgery
DX: K83.9 Disease of biliary tract, unspecified (principal)
CPT/HCPCS: 71260; Q9967

== ENCOUNTER → 2016-10-11 | Outpatient (CLI) | payer MEDICARE, OTHER ==
[~2016-10-11] MED LIST changes: -ISOVUE-370 76% 100ML VIAL (Q9967) As Ordered ONE
[2016-10-11 13:33] LABS: MEAN CORPUSCULAR HEMOGLOBIN 31.4 pg (27.0-33.0); MEAN CORPUSCULAR HGB CONC 33.1 g/dl (32.0-36.5); RED CELL DISTRIBUTION WIDTH 14.5 % (11.5-14.5); WHITE BLOOD COUNT 6.3 K/mm3 (4.0-10.0)
[2016-10-11 14:02] LABS: ALBUMIN 2.9 GM/DL (3.2-5.2); ALBUMIN/GLOBULIN RATIO 0.78 (1.00-1.93); ALKALINE PHOSPHATASE 570 U/L (45-117); ALT/SGPT 120 U/L (12-78); ANION GAP 5 MEQ/L (8-16); AST/SGOT 113 U/L (15-37); BILIRUBIN,TOTAL 7.4 MG/DL (0.2-1.0); BLOOD UREA NITROGEN 9 MG/DL (7-18); CALCIUM LEVEL 8.7 MG/DL (8.8-10.2); CARBON DIOXIDE LEVEL 36 MEQ/L (21-32); CHLORIDE LEVEL 98 MEQ/L (98-107); CREATININE FOR GFR 0.91 MG/DL (0.70-1.30); GLOMERULAR FILTRATION RATE > 60.0 (>42); GLUCOSE, FASTING 120 MG/DL (83-110); POTASSIUM SERUM 3.1 MEQ/L (3.5-5.1); SODIUM LEVEL 139 MEQ/L (136-145); TOTAL PROTEIN 6.6 GM/DL (6.4-8.2)
== END ==
LOC: M LAB 12:49
PROVIDERS: ATTEND Physician Assistant
DX: K83.9 Disease of biliary tract, unspecified (principal)

== ENCOUNTER → 2016-10-24 | Outpatient (CLI) | payer MEDICARE, OTHER ==
[2016-10-25 16:51] LABS: ALBUMIN 2.8 GM/DL (3.2-5.2); ALBUMIN/GLOBULIN RATIO 0.61 (1.00-1.93); ALKALINE PHOSPHATASE 715 U/L (45-117); ALT/SGPT 97 U/L (12-78); ANION GAP 13 MEQ/L (8-16); AST/SGOT 161 U/L (15-37); BILIRUBIN,TOTAL 7.5 MG/DL (0.2-1.0); BLOOD UREA NITROGEN 12 MG/DL (7-18); CALCIUM LEVEL 9.1 MG/DL (8.8-10.2); CARBON DIOXIDE LEVEL 28 MEQ/L (21-32); CHLORIDE LEVEL 99 MEQ/L (98-107); CREATININE FOR GFR 0.91 MG/DL (0.70-1.30); GLOMERULAR FILTRATION RATE > 60.0 (>42); GLUCOSE, FASTING 125 MG/DL (83-110); POTASSIUM SERUM 3.3 MEQ/L (3.5-5.1); SODIUM LEVEL 140 MEQ/L (136-145); TOTAL PROTEIN 7.4 GM/DL (6.4-8.2)
== END ==
LOC: M LAB 08:35
PROVIDERS: ATTEND Surgery
DX: R97.8 Other abnormal tumor markers (principal)

== ENCOUNTER → 2016-11-07 | Outpatient (CLI) | payer MEDICARE, OTHER ==
[2016-11-07 12:55] LABS: MEAN CORPUSCULAR HEMOGLOBIN 31.3 pg (27.0-33.0); MEAN CORPUSCULAR HGB CONC 33.4 g/dl (32.0-36.5); MEAN CORPUSCULAR VOLUME 93.7 fl (80.0-96.0); RED CELL DISTRIBUTION WIDTH 13.1 % (11.5-14.5); WHITE BLOOD COUNT 6.9 K/mm3 (4.0-10.0)
[2016-11-07 13:30] LABS: ALBUMIN 2.8 GM/DL (3.2-5.2); ALBUMIN/GLOBULIN RATIO 0.61 (1.00-1.93); ALKALINE PHOSPHATASE 230 U/L (45-117); ALT/SGPT 38 U/L (12-78); ANION GAP 5 MEQ/L (8-16); AST/SGOT 32 U/L (15-37); BILIRUBIN,TOTAL 1.2 MG/DL (0.2-1.0); BLOOD UREA NITROGEN 11 MG/DL (7-18); CALCIUM LEVEL 9.5 MG/DL (8.8-10.2); CARBON DIOXIDE LEVEL 36 MEQ/L (21-32); CHLORIDE LEVEL 99 MEQ/L (98-107); CREATININE FOR GFR 0.72 MG/DL (0.70-1.30); GLOMERULAR FILTRATION RATE > 60.0 (>42); GLUCOSE, FASTING 120 MG/DL (83-110); POTASSIUM SERUM 3.4 MEQ/L (3.5-5.1); SODIUM LEVEL 140 MEQ/L (136-145); TOTAL PROTEIN 7.4 GM/DL (6.4-8.2)
== END ==
LOC: M LAB 12:07
PROVIDERS: ATTEND Physician Assistant
DX: K83.1 Obstruction of bile duct (principal)

== ENCOUNTER → 2016-11-14 | Outpatient (CLI) | payer MEDICARE, OTHER ==
[2016-11-14 12:17] LABS: MEAN CORPUSCULAR HEMOGLOBIN 31.2 pg (27.0-33.0); MEAN CORPUSCULAR HGB CONC 32.8 g/dl (32.0-36.5); MEAN CORPUSCULAR VOLUME 95.2 fl (80.0-96.0); RED CELL DISTRIBUTION WIDTH 13.7 % (11.5-14.5); WHITE BLOOD COUNT 8.5 K/mm3 (4.0-10.0)
[2016-11-14 12:43] LABS: ALBUMIN 2.9 GM/DL (3.2-5.2); ALBUMIN/GLOBULIN RATIO 0.69 (1.00-1.93); BILIRUBIN,DIRECT 0.7 MG/DL (0.0-0.2); BILIRUBIN,TOTAL 0.8 MG/DL (0.2-1.0); TOTAL PROTEIN 7.1 GM/DL (6.4-8.2)
== END ==
LOC: M LAB 11:19
PROVIDERS: ATTEND Surgery
DX: K83.1 Obstruction of bile duct (principal)

== ENCOUNTER → 2016-12-13 | Outpatient (REF) | payer MEDICARE, OTHER ==
[2016-12-13 13:48] LABS: INR 0.94
== END ==
LOC: M LAB REF 13:02
PROVIDERS: ATTEND Internal Medicine Medical Oncology
DX: C24.9 Malignant neoplasm of biliary tract, unspecified (principal)

== ENCOUNTER → 2016-12-15 | Outpatient (CLI) | payer MEDICARE, OTHER ==
[2016-12-15 12:12] LABS: MEAN CORPUSCULAR HEMOGLOBIN 30.9 pg (27.0-33.0); MEAN CORPUSCULAR VOLUME 90.9 fl (80.0-96.0); RED CELL DISTRIBUTION WIDTH 13.4 % (11.5-14.5); WHITE BLOOD COUNT 6.5 K/mm3 (4.0-10.0)
[2016-12-15 12:56] LABS: ANION GAP 7 MEQ/L (8-16); BLOOD UREA NITROGEN 11 MG/DL (7-18); CALCIUM LEVEL 9.1 MG/DL (8.8-10.2); CARBON DIOXIDE LEVEL 34 MEQ/L (21-32); CHLORIDE LEVEL 98 MEQ/L (98-107); CREATININE FOR GFR 0.72 MG/DL (0.70-1.30); GLOMERULAR FILTRATION RATE > 60.0 (>42); GLUCOSE, FASTING 150 MG/DL (83-110); POTASSIUM SERUM 4.2 MEQ/L (3.5-5.1); SODIUM LEVEL 139 MEQ/L (136-145)
--- NOTE | 2016-12-15 19:53 | ECGEPIP ---
Stationary ECG Study [facility] Test Date: 2016-12-15 Pat Name: SONIA MCINTYRE Department: Room: - Gender: M Zigzag Topstitcher: : 1940 Requested By: MIGDALIA Gottlieb Order Number: [id number] Reading MD: Taye Beck Measurements Intervals [place] Rate: 85 P: 46 AR: 161 QRS: 1 QRSD: 104 T: 55 QT: 378 QTc: 451 Interpretive Statements Normal sinus rhythm Compared to prior tracing of 09/11/2016, T wave abnormality has resolved Electronically Signed On 12-15-2016 19:52:50 EDT by Taye Beck
== END ==
LOC: M LAB 11:04
PROVIDERS: ATTEND Thoracic Surgery (Cardiothoracic Vascular Surgery)
DX: Z01.818 Encounter for other preprocedural examination (principal); Z79.899 Other long term (current) drug therapy

== ENCOUNTER 2016-12-16 11:44 | Day surgery (SDC) | payer MEDICARE, OTHER ==
[~2016-12-16] VITALS: Ht 177.8 cm; Wt 78.0 kg
[2016-12-16] MEDS ORDERED: VANCOMYCIN HCL 1,000 MG, VIAL MATE ADAPTER 1 EACH in D5W 250 ML IV ONE (12:00)
[2016-12-16] MEDS ORDERED: MUPIROCIN 2% OINT 22 GM TUBE TOP ONE (12:15)
[2016-12-16] MEDS ORDERED: LIDOCAINE 2% INJ 100 MG/5 ML SDV (FOR ANES.) As Ordered ONE (12:44)
[2016-12-16] MEDS ORDERED: PROPOFOL 200 MG/20 ML VIAL As Ordered ONE (12:44)
[2016-12-16] MEDS ORDERED: MIDAZOLAM INJ 2 MG/2 ML VIAL (J2250) As Ordered ONE (12:45)
[2016-12-16] MEDS ORDERED: fentaNYL 100 MCG/2 ML INJECTION (J3010) As Ordered ONE (12:45)
[2016-12-16] MEDS ORDERED: HEPARIN SOD (PORCINE) 5000 UNITS/ML VIAL As Ordered ONE (13:17)
[2016-12-16] MEDS ORDERED: LIDOCAINE 1% SDV INJ 30 ML VIAL As Ordered ONE (13:17)
[2016-12-16] MEDS ORDERED: BUPIVACAINE LIPOSOME/PF 1.3% 20 ML VIAL (13.3MG/ML)(EXPAREL) As Ordered ONE (13:22)
[2016-12-16 14:50] VITALS: BP 161/74
[2016-12-16] MEDS ORDERED: LR 1,000 ML IV SCH (15:00)
[2016-12-16] MEDS ORDERED: PERCOCET 5MG/325MG TAB PO PRN (15:00)
[2016-12-16] MEDS ORDERED: ONDANSETRON 4MG/2ML VIAL (J2405) IV PRN (15:00)
[2016-12-16] MEDS ORDERED: MORPHINE 2 MG/ML 1ML SYRINGE IV PRN (15:00)
--- NOTE | 2016-12-16 15:03 | REP ---
PARTIAL CHEST X-RAY: Two views. HISTORY: Abnormal x-ray. 43 seconds of fluoroscopy time is reported. FINDINGS: A sequence of two last image hold fluoroscopic spot radiographs of the lumbar spine document an Lxelmh-I-Fusj catheter placement. Signed by Emir Calero MD 12/16/2016 03:22 P
--- NOTE | 2016-12-16 15:31 | REP ---
Portable chest, 03:01 p.m., single AP view, patient sitting: Comparison is 09/11/2016. There is a central venous indwelling Jwzpcc-G-Qyxb catheter entering from a left subclavian approach, not present previously. There is no pneumothorax or pleural fluid collection. The left costophrenic angle is slightly effaced, however this is unchanged. This could be a chronic pleural effusion or pleural adhesion. There is synchondrosis of the posterior arches of the left sixth and seventh ribs, unchanged, likely congenital. There is a parenchymal scar in the right upper lobe, unchanged from 09/11/2016. There is a new focal density in the right mid lung, in a region of rib overlap, having a nodular appearance. This could be artifact from ribs or a new lung nodule. There is a linear density above the right hemidiaphragm as an interval change compatible with atelectasis/infiltrate. There are surgical clips in the left hilus. Signed by Mike Jenkins MD 12/16/2016 03:22 P
--- NOTE | 2016-12-17 13:02 | RO ---
DATE OF PROCEDURE: 12/16/2016 PREPROCEDURE DIAGNOSES: Cholangiocarcinoma, need for chemotherapy and vascular access. POSTPROCEDURE DIAGNOSES: Cholangiocarcinoma, need for chemotherapy and vascular access. OPERATIVE PROCEDURE: Insertion of left subclavian Cpaxkz-C-Cmni with fluoroscopic control. SURGEON: Jeff Oscar MD RED CAP: ANESTHESIA: FINDINGS: All contours were smooth at the end of the procedure with the catheter being located at the junction of the right atrium and superior vena cava. DESCRIPTION OF PROCEDURE: Under satisfactory monitored anesthesia care (MAC) anesthesia, the patient was prepped and draped in the usual sterile fashion. The infraclavicular fossa on the left side was infiltrated with 1% lidocaine. The vein was found on the first pass and a wire was placed without difficulty, confirmed by fluoroscopy. The port site was chosen, infiltrated with Exparel and incision was made. The subcutaneous pocket was created by use of electrocautery and blunt and sharp dissection. The wire tract was dilated and a peel-away introducer was then placed. The catheter was placed low numbers down into the right atrium. Tunnel was created and brought from the wire site to the port site. Catheter was then properly positioned by fluoroscopic control. The catheter was cut to the appropriate size. Collar was placed and port was connected. The port was aspirated and flushed without difficulty with heparinized saline. The port was secured to the chest wall with #2-0 silk sutures. Final flush with 100 units per mL of heparin was then placed with the Zbmoer-T-Xtfu. Final pictures were taken showing all contours smooth and the catheter positioned at the top of the atrium. The subcutaneous tissues were closed with running #3-0 Vicryl sutures and the skin was closed with running #4-0 Monocryl subcuticular sutures. The patient tolerated the procedure well and left the operating room in satisfactory condition for the recovery room.
== END 2016-12-16 15:35 | disposition home or self-care (01) ==
LOC: M SDC 11:44
PROVIDERS: ATTEND Thoracic Surgery (Cardiothoracic Vascular Surgery)
DX: C24.0 Malignant neoplasm of extrahepatic bile duct (principal); R64 Cachexia; I10 Essential (primary) hypertension; E78.00 Pure hypercholesterolemia, unspecified; J43.9 Emphysema, unspecified; E11.9 Type 2 diabetes mellitus without complications; M15.0 Primary generalized (osteo)arthritis; K21.0 Gastro-esophageal reflux disease with esophagitis; J44.9 Chronic obstructive pulmonary disease, unspecified; G20 Parkinson's disease; K80.20 Calculus of gallbladder without cholecystitis without obstruction; K42.9 Umbilical hernia without obstruction or gangrene; K74.69 Other cirrhosis of liver; R06.83 Snoring; G47.33 Obstructive sleep apnea (adult) (pediatric); Z88.0 Allergy status to penicillin; Z79.899 Other long term (current) drug therapy; Z79.84 Long term (current) use of oral hypoglycemic drugs; Z85.118 Personal history of other malignant neoplasm of bronchus and lung; Z96.1 Presence of intraocular lens; Z87.891 Personal history of nicotine dependence
CPT/HCPCS: 36415; 36561; 71010; 76000; 86850; 86900; 86901; 96374; C1788; J2250; J3010; J3370

== ENCOUNTER → 2016-12-20 | Outpatient (REF) | payer MEDICARE, OTHER | LOC: M LAB REF 14:05 | PROVIDERS: ATTEND Internal Medicine Medical Oncology | DX: Z51.11 Encounter for antineoplastic chemotherapy (principal); Z22.1 Carrier of other intestinal infectious diseases; C78.7 Secondary malignant neoplasm of liver and intrahepatic bile duct ==

== ENCOUNTER → 2016-12-22 | Outpatient (CLI) | payer MEDICARE, OTHER ==
--- NOTE | 2016-12-22 09:34 | REP ---
Chest two views HISTORY: COPD Comparison: 12/16/2016 Linear density is present in the right upper lobe consistent with scar. The left lung is clear. There is blunting of the left costophrenic angle due to pleural thickening or a small pleural effusion. The heart is normal in size. The pulmonary vasculature is normal in appearance. There is deformity of the left fifth and sixth ribs. Degenerative change is present in the thoracic spine. An Khistr-C-Odib catheter is present. Impression: 1. Right upper lobe scarring. 2. There is blunting of the left costophrenic angle due to pleural thickening or small pleural effusion unchanged compared to the previous study. Signed by Amol Bernal MD 12/22/2016 09:25 A
== END ==
LOC: M SMT 08:50
PROVIDERS: ATTEND Thoracic Surgery (Cardiothoracic Vascular Surgery)
DX: J44.9 Chronic obstructive pulmonary disease, unspecified (principal)

== ENCOUNTER → 2017-01-06 | Outpatient (REF) | payer MEDICARE, OTHER ==
[2017-01-06 13:47] LABS: ALBUMIN 2.8 GM/DL (3.2-5.2); ALBUMIN/GLOBULIN RATIO 0.82 (1.00-1.93); ALKALINE PHOSPHATASE 113 U/L (45-117); ALT/SGPT 17 U/L (12-78); ANION GAP 5 MEQ/L (8-16); AST/SGOT 33 U/L (15-37); BILIRUBIN,TOTAL 0.7 MG/DL (0.2-1.0); BLOOD UREA NITROGEN 16 MG/DL (7-18); CALCIUM LEVEL 8.6 MG/DL (8.8-10.2); CARBON DIOXIDE LEVEL 36 MEQ/L (21-32); CHLORIDE LEVEL 95 MEQ/L (98-107); CHOLESTEROL LEVEL 138 MG/DL (<200); CREATININE FOR GFR 0.73 MG/DL (0.70-1.30); GLOMERULAR FILTRATION RATE > 60.0 (>42); GLUCOSE, FASTING 109 MG/DL (83-110); POTASSIUM SERUM 3.9 MEQ/L (3.5-5.1); SODIUM LEVEL 136 MEQ/L (136-145); TOTAL PROTEIN 6.2 GM/DL (6.4-8.2); TRIGLYCERIDES LEVEL 123 MG/DL (<150)
== END ==
LOC: M LAB REF 12:17
PROVIDERS: ATTEND Emergency Medicine
DX: E11.9 Type 2 diabetes mellitus without complications (principal); E78.2 Mixed hyperlipidemia; I10 Essential (primary) hypertension

== ENCOUNTER → 2017-01-10 | Outpatient (REF) | payer MEDICARE, OTHER | LOC: M LAB REF 17:19 | PROVIDERS: ATTEND Internal Medicine Medical Oncology | DX: C34.90 Malignant neoplasm of unspecified part of unspecified bronchus or lung (principal) ==

== ENCOUNTER → 2017-02-06 | Outpatient (CLI) | payer MEDICARE, OTHER ==
[2017-02-06 15:31] LABS: BASO % 0.5 % (0.0-1.0); EOS % 0.9 % (0.0-3.0); IMMATURE GRANULOCYTE % 0.9 % (0-0); LYMPH # 0.5 10^3/uL (1.5-4.5); LYMPH % 23.9 % (24.0-44.0); MEAN CORPUSCULAR HGB CONC 32.1 g/dl (32.0-36.5); MEAN CORPUSCULAR VOLUME 90.5 fl (80.0-96.0); MONO # 0.1 10^3/uL (0.0-0.8); MONO % 6.1 % (0.0-5.0); NEUTROPHILS # 1.4 10^3/uL (1.8-7.7); NEUTROPHILS % 67.7 % (36.0-66.0); PLATELET COUNT, AUTOMATED 170 10^3/uL (150-450); RED CELL DISTRIBUTION WIDTH 18.3 % (11.5-14.5); WHITE BLOOD COUNT 2.1 10^3/uL (4.0-10.0)
[2017-02-06 15:55] LABS: ANION GAP 4 MEQ/L (8-16); BLOOD UREA NITROGEN 14 MG/DL (7-18); CARBON DIOXIDE LEVEL 35 MEQ/L (21-32); CHLORIDE LEVEL 97 MEQ/L (98-107); CREATININE FOR GFR 0.66 MG/DL (0.70-1.30); GLOMERULAR FILTRATION RATE > 60.0 (>42); GLUCOSE, FASTING 118 MG/DL (83-110); POTASSIUM SERUM 3.6 MEQ/L (3.5-5.1); SODIUM LEVEL 136 MEQ/L (136-145); URIC ACID 4.3 MG/DL (3.5-7.2)
[2017-02-06 16:01] LABS: ERYTHROCYTE SEDIMENTATION RATE 83 mm/hr (0-20)
== END ==
LOC: M LAB 14:58
PROVIDERS: ATTEND Emergency Medicine
DX: R60.9 Edema, unspecified (principal)

== ENCOUNTER → 2017-02-14 | Outpatient (REF) | payer MEDICARE, OTHER | LOC: M LAB REF 17:22 | PROVIDERS: ATTEND Internal Medicine Medical Oncology | DX: C34.90 Malignant neoplasm of unspecified part of unspecified bronchus or lung (principal) ==

== ENCOUNTER → 2017-03-07 | Outpatient (CLI) | payer MEDICARE, OTHER ==
[~2017-03-07] MED LIST changes: +GASTROGRAFIN SOLUTION 30ML (Q9963) As Ordered ONE; +ISOVUE-370 76% 100ML VIAL (Q9967) As Ordered ONE
--- NOTE | 2017-03-07 14:45 | REP ---
CT of the abdomen and pelvis without and with IV contrast and with bowel contrast: Comparison is 09/11/2016. There is biliary obstruction on the comparison study with a suspected mass versus calculus in the common duct. Current examination the studies performed for restaging of cholangiocarcinoma. There are no interim studies. There is a biliary stent stent in the common duct entering the duodenum. The stomach is markedly distended. The duodenal loop is markedly distended. The small bowel loop comprising the gastrojejunostomy is markedly distended. 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 There is intrahepatic biliary duct dilatation, similar to the prior study. The consideration might be given to biliary stent malfunction. This could be secondary to increased intraluminal duodenal pressure from the suspected a stricture of the distal Damaris-en-Y thrombosis and duodenal loop distension. No evidence of tumor recurrence at the allison hepatis by CT, however, MRI might be more sensitive. No hepatic metastases are identified. There is no ascites. The pancreas is unremarkable. The biliary duct passes through the head of the pancreas as expected. The spleen is normal size and unremarkable. The adrenals are unremarkable. There are multiple bilateral renal cortical cysts. These are unchanged. The kidneys are otherwise unremarkable. The abdominal aorta is unremarkable. There is no periaortic adenopathy. There is no mesenteric adenopathy. Pelvis: As no ascites or adenopathy. The pelvic bowel loops are unremarkable. There are no lytic, blastic or destructive skeletal changes. There is degenerative disc disease and facet osteoarthritis in the knee. Impression: The duodenal loop is dilated. The gastrojejunostomy bowel loop is dilated. 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 There is a common biliary duct stent extending into the distended duodenum. There is intrahepatic biliary duct dilatation. This suggests biliary stent malfunction. This may be secondary to intraluminal pressure in the duodenum. There is no evidence of metastatic disease, adenopathy or ascites. However, MRI might be more sensitive in evaluation of the allison hepatis. Signed by Mike Jenkins MD 03/07/2017 02:37 P
== END ==
LOC: M RAD 09:02
PROVIDERS: ATTEND Internal Medicine Medical Oncology
DX: C22.1 Intrahepatic bile duct carcinoma (principal)
CPT/HCPCS: 74178; Q9963; Q9967

== ENCOUNTER → 2017-03-14 | Outpatient (REF) | payer MEDICARE, OTHER ==
[~2017-03-14] MED LIST changes: -GASTROGRAFIN SOLUTION 30ML (Q9963) As Ordered ONE; -ISOVUE-370 76% 100ML VIAL (Q9967) As Ordered ONE
== END ==
LOC: M LAB REF 17:41
PROVIDERS: ATTEND Internal Medicine Medical Oncology
DX: C34.90 Malignant neoplasm of unspecified part of unspecified bronchus or lung (principal); C24.0 Malignant neoplasm of extrahepatic bile duct; R64 Cachexia; J44.9 Chronic obstructive pulmonary disease, unspecified

== ENCOUNTER → 2017-03-21 | Outpatient (REF) | payer MEDICARE, OTHER | LOC: M LAB REF 16:51 | PROVIDERS: ATTEND Internal Medicine Medical Oncology | DX: C34.90 Malignant neoplasm of unspecified part of unspecified bronchus or lung (principal) ==

== ENCOUNTER → 2017-03-23 | Outpatient (CLI) | payer MEDICARE, OTHER ==
[2017-03-23 14:01] LABS: BASO % 0.2 % (0.0-1.0); EOS # 0.1 10^3/uL (0.0-0.50); EOS % 0.8 % (0.0-3.0); IMMATURE GRANULOCYTE # 0.1 10^3/uL (0-0); IMMATURE GRANULOCYTE % 0.8 % (0-0); LYMPH # 0.9 10^3/uL (1.5-4.5); LYMPH % 7.3 % (24.0-44.0); MEAN CORPUSCULAR HEMOGLOBIN 30.7 pg (27.0-33.0); MEAN CORPUSCULAR HGB CONC 32.1 g/dl (32.0-36.5); MEAN CORPUSCULAR VOLUME 95.7 fl (80.0-96.0); MONO % 8.9 % (0.0-5.0); NEUTROPHILS # 9.6 10^3/uL (1.8-7.7); PLATELET COUNT, AUTOMATED 518 10^3/uL (150-450); RED CELL DISTRIBUTION WIDTH 18.9 % (11.5-14.5); WHITE BLOOD COUNT 11.6 10^3/uL (4.0-10.0)
[2017-03-23 14:32] LABS: ANION GAP 3 MEQ/L (8-16); BLOOD UREA NITROGEN 9 MG/DL (7-18); CALCIUM LEVEL 8.1 MG/DL (8.8-10.2); CARBON DIOXIDE LEVEL 37 MEQ/L (21-32); CHLORIDE LEVEL 99 MEQ/L (98-107); GLOMERULAR FILTRATION RATE > 60.0 (>42); GLUCOSE, FASTING 90 MG/DL (83-110); POTASSIUM SERUM 3.8 MEQ/L (3.5-5.1); SODIUM LEVEL 139 MEQ/L (136-145)
[2017-03-23 14:33] LABS: ALBUMIN 2.9 GM/DL (3.2-5.2); ALBUMIN/GLOBULIN RATIO 0.76 (1.00-1.93); ALKALINE PHOSPHATASE 299 U/L (45-117); ALT/SGPT 27 U/L (12-78); AST/SGOT 36 U/L (7-37); BILIRUBIN,DIRECT 0.9 MG/DL (0.0-0.2); BILIRUBIN,TOTAL 1.2 MG/DL (0.2-1.0); TOTAL PROTEIN 6.7 GM/DL (6.4-8.2)
== END ==
LOC: M LAB 13:05
DX: K83.1 Obstruction of bile duct (principal)
CPT/HCPCS: 82248

== ENCOUNTER → 2017-03-23 | Outpatient (CLI) | payer MEDICARE, OTHER | LOC: M LAB 12:59 | DX: K83.1 Obstruction of bile duct (principal) ==

== ENCOUNTER → 2017-03-31 | Outpatient (REF) | payer MEDICARE, OTHER | LOC: M LAB REF 10:02 | DX: C22.1 Intrahepatic bile duct carcinoma (principal) | CPT/HCPCS: 84134 ==

== ENCOUNTER → 2017-04-06 | Outpatient (CLI) | payer MEDICARE, OTHER ==
[2017-04-06 12:35] LABS: BASO % 0.6 % (0.0-1.0); EOS # 0.1 10^3/uL (0.0-0.50); EOS % 2.7 % (0.0-3.0); HEMATOCRIT 31.2 % (42.0-52.0); IMMATURE GRANULOCYTE % 0.9 % (0-0); LYMPH # 0.6 10^3/uL (1.5-4.5); LYMPH % 17.4 % (24.0-44.0); MEAN CORPUSCULAR HEMOGLOBIN 30.8 pg (27.0-33.0); MEAN CORPUSCULAR HGB CONC 32.1 g/dl (32.0-36.5); MONO # 0.3 10^3/uL (0.0-0.8); NEUTROPHILS # 2.4 10^3/uL (1.8-7.7); NEUTROPHILS % 70.4 % (36.0-66.0); PLATELET COUNT, AUTOMATED 170 10^3/uL (150-450); RED BLOOD COUNT 3.25 10^6/uL (4.30-6.10); RED CELL DISTRIBUTION WIDTH 16.2 % (11.5-14.5); WHITE BLOOD COUNT 3.4 10^3/uL (4.0-10.0)
[2017-04-06 13:04] LABS: ALBUMIN 2.7 GM/DL (3.2-5.2); ALBUMIN/GLOBULIN RATIO 0.73 (1.00-1.93); ALKALINE PHOSPHATASE 114 U/L (45-117); ALT/SGPT 18 U/L (12-78); ANION GAP 8 MEQ/L (8-16); AST/SGOT 29 U/L (7-37); BILIRUBIN,TOTAL 0.6 MG/DL (0.2-1.0); BLOOD UREA NITROGEN 11 MG/DL (7-18); CALCIUM LEVEL 8.6 MG/DL (8.8-10.2); CARBON DIOXIDE LEVEL 33 MEQ/L (21-32); CHLORIDE LEVEL 98 MEQ/L (98-107); CREATININE FOR GFR 0.65 MG/DL (0.70-1.30); GLOMERULAR FILTRATION RATE > 60.0 (>42); GLUCOSE, FASTING 108 MG/DL (83-110); PREALBUMIN 17.1 MG/DL (20.0-40.0); SODIUM LEVEL 139 MEQ/L (136-145); TOTAL PROTEIN 6.4 GM/DL (6.4-8.2)
== END ==
LOC: M LAB 12:07
DX: C22.1 Intrahepatic bile duct carcinoma (principal)
CPT/HCPCS: 80053

== ENCOUNTER → 2017-04-18 | Outpatient (REF) | payer MEDICARE, OTHER ==
[2017-04-18 20:46] LABS: CA19-9 TUMOR MARKER,CARBOHYDRA 69.2 U/ML (<35.0)
== END ==
LOC: M LAB REF 17:31
DX: C34.90 Malignant neoplasm of unspecified part of unspecified bronchus or lung (principal)
CPT/HCPCS: 86301

== ENCOUNTER → 2017-04-26 | Outpatient (CLI) | payer MEDICARE, OTHER ==
[2017-04-26 13:38] LABS: ALBUMIN 2.8 GM/DL (3.2-5.2); ANION GAP 6 MEQ/L (8-16); BLOOD UREA NITROGEN 17 MG/DL (7-18); CALCIUM LEVEL 8.8 MG/DL (8.8-10.2); CARBON DIOXIDE LEVEL 35 MEQ/L (21-32); CHLORIDE LEVEL 98 MEQ/L (98-107); CREATININE FOR GFR 0.76 MG/DL (0.70-1.30); GLOMERULAR FILTRATION RATE > 60.0 (>42); GLUCOSE, FASTING 101 MG/DL (70-100); MAGNESIUM LEVEL 2.1 MG/DL (1.8-2.4); PHOSPHORUS LEVEL 3.6 MG/DL (2.5-4.9); POTASSIUM SERUM 3.9 MEQ/L (3.5-5.1); SODIUM LEVEL 139 MEQ/L (136-145)
== END ==
LOC: M LAB 12:04
DX: I50.9 Heart failure, unspecified (principal)
CPT/HCPCS: 83735

== ENCOUNTER → 2017-05-09 | Outpatient (REF) | payer MEDICARE, OTHER ==
[2017-05-09 20:08] LABS: MAGNESIUM LEVEL 2.2 MG/DL (1.8-2.4)
== END ==
LOC: M LAB REF 17:36
DX: C22.1 Intrahepatic bile duct carcinoma (principal)
CPT/HCPCS: 83735

== ENCOUNTER → 2017-05-16 | Outpatient (REF) | payer MEDICARE, OTHER ==
[2017-05-16 20:58] LABS: CA19-9 TUMOR MARKER,CARBOHYDRA 113.4 U/ML (<35.0)
== END ==
LOC: M LAB REF 17:23
DX: C34.90 Malignant neoplasm of unspecified part of unspecified bronchus or lung (principal); C22.1 Intrahepatic bile duct carcinoma

== ENCOUNTER 2017-05-18 10:03 | Inpatient (IN) | payer MEDICARE, OTHER ==
[2017-05-18] MEDS: DILUENT IV (10:30)
[2017-05-18] MEDS: NS IV (10:30)
[2017-05-18] MEDS: MOXIFLOXACIN HCL 400 MG in APPROPRIATE DILUENT 1 EA IV (10:31)
[2017-05-18 11:03] LABS: ABG HCO3 29.2 MEQ/L (22.0-26.0); ABG O2 SATURATION 90.6 % (95.0-99.0); ABG PARTIAL PRESSURE CO2 41.6 mmHg (35.0-45.0); ABG PARTIAL PRESSURE O2 61.2 mmHg (75.0-100.0); ABG STANDARD HCO3 28.8 MEQ/L (22.0-26.0); ABG TOTAL CO2 30.5 MEQ/L (23.0-31.0); ABG pH (ARTERIAL) 7.464 UNITS (7.350-7.450)
[2017-05-18 11:08] LABS: HEMATOCRIT 31.9 % (42.0-52.0); HEMOGLOBIN 10.5 g/dl (14.0-18.0); MEAN CORPUSCULAR HEMOGLOBIN 29.4 pg (27.0-33.0); MEAN CORPUSCULAR HGB CONC 32.9 g/dl (32.0-36.5); MEAN CORPUSCULAR VOLUME 89.4 fl (80.0-96.0); RED BLOOD COUNT 3.57 10^6/uL (4.30-6.10); RED CELL DISTRIBUTION WIDTH 15.8 % (11.5-14.5); WHITE BLOOD COUNT 7.7 10^3/uL (4.0-10.0)
[2017-05-18 11:18] LABS: INR 1.04; PROTHROMBIN TIME 13.7 SECONDS (12.4-14.5)
[2017-05-18 11:19] LABS: PARTIAL THROMBOPLASTIN TIME 30.3 SECONDS (26.8-37.9)
[2017-05-18 11:26] LABS: ALBUMIN 2.4 GM/DL (3.2-5.2); ALBUMIN/GLOBULIN RATIO 0.83 (1.00-1.93); ALKALINE PHOSPHATASE 141 U/L (45-117); ALT/SGPT 38 U/L (12-78); AMYLASE 74 U/L (25-115); ANION GAP 7 MEQ/L (8-16); AST/SGOT 47 U/L (7-37); BILIRUBIN,DIRECT 0.2 MG/DL (0.0-0.2); BILIRUBIN,TOTAL 0.5 MG/DL (0.2-1.0); BLOOD UREA NITROGEN 27 MG/DL (7-18); C REACTIVE PROTEIN QUANTITATIV 2.56 MG/DL (0.00-0.30); CALCIUM LEVEL 7.5 MG/DL (8.8-10.2); CARBON DIOXIDE LEVEL 32 MEQ/L (21-32); CHLORIDE LEVEL 96 MEQ/L (98-107); CPK CREATINE PHOSPHOKINASE 29 U/L (39-308); CREATININE FOR GFR 1.11 MG/DL (0.70-1.30); GLOMERULAR FILTRATION RATE > 60.0 (>42); GLUCOSE, FASTING 86 MG/DL (70-100); POTASSIUM SERUM 3.8 MEQ/L (3.5-5.1); SODIUM LEVEL 135 MEQ/L (136-145); TOTAL PROTEIN 5.3 GM/DL (6.4-8.2); TROPONIN I 0.02 NG/ML (< 0.10)
[2017-05-18 11:26] LABS: LACTIC ACID SEPSIS PROTOCOL 1.7 MMOL/L (0.4-2.0)
[2017-05-18 11:27] LABS: MB/CK RELATIVE INDEX 3.44 (< OR =4)
[2017-05-18 11:32] LABS: PLATELET COUNT, AUTOMATED 97 10^3/uL (150-450); POSITIVE DIFF POS FLAG; POSITIVE MORPH POS FLAG
[2017-05-18 11:33] LABS: ADD MANUAL DIFFER YES; DIFF SLIDE NUMBER 159
[2017-05-18 11:34] LABS: IMMATURE PLATELET FRACTION % 4.4 % (0.0-10.9)
[2017-05-18 11:38] LABS: BANDS 1 % (< 11); LYMPHOCYTES 3 % (16-52); METAMYELOCYTES 6 % (0-0); MONOCYTES 2 % (0-8); MYELOCYTES 1 % (0-0); NEUTROPHILS 87 % (35-75); PLATELET ESTIMATE DECREASED (NORMAL)
[2017-05-18 11:39] LABS: ANISOCYTOSIS 1+
[2017-05-18] MEDS ORDERED: DEXTROSE 50% 50 ML SYRINGE IV (13:00)
[2017-05-18] MEDS ORDERED: ACETAMINOPHEN TAB 650MG DOSE (2X325MG) PO (13:00)
[2017-05-18] MEDS ORDERED: GLUCAGON FOR INJ 1 MG VIAL (J1610) SC (13:00)
[2017-05-18] MEDS ORDERED: ONDANSETRON 4MG/2ML VIAL (J2405) IV (13:00)
[2017-05-18] MEDS ORDERED: IPRATROPIUM 0.5MG/ALBUTEROL 2.5MG INH SOL UD 3ML (DUONEB)(J7620) NEB (13:00)
[2017-05-18] MEDS ORDERED: ONDANSETRON 4 MG TAB (S0181) PO (13:00)
[2017-05-18] MEDS ORDERED: GLUCOSE 4 GM CHEW TABLET PO (13:00)
[2017-05-18] MEDS: NOREPINEPHRINE BITARTRATE 8 MG in D5W 492 ML IV ×2 (13:30→16:32)
[2017-05-18] MEDS: NS 1,000 ML IV ×2 (13:50→17:35)
[2017-05-18] MEDS: IPRATROPIUM 0.5MG/ALBUTEROL 2.5MG INH SOL UD 3ML (DUONEB)(J7620) NEB ×2 (14:00→20:00)
[2017-05-18] MEDS: VANCOMYCIN HCL 1,000 MG, VIAL MATE ADAPTER 1 EACH in D5W 250 ML IV (16:00)
[2017-05-18] MEDS: SINEMET 25-100 MG TAB PO ×2 (16:18→20:58)
[2017-05-18] MEDS: AZTREONAM 2 GM in D5W MINI-BAG PLUS 50 ML IV ×2 (16:18→23:18)
[2017-05-18] MEDS: VANCOMYCIN HCL 500 MG in D5W MINI-BAG PLUS 100 ML IV (16:21)
[2017-05-18] MEDS: PRAMIPEXOLE 1 MG TAB PO ×2 (16:21→20:58)
[2017-05-18 16:24] LABS: LACTIC ACID SEPSIS PROTOCOL 1.7 MMOL/L (0.4-2.0)
[2017-05-18] MEDS: HumaLOG INSULIN (NovoLOG) PER UNIT SC ×2 (16:36→20:58)
[2017-05-18 16:42] LABS: BEDSIDE GLUCOSE 145 MG/DL (83-110)
[2017-05-18] MEDS: PANTOPRAZOLE 40MG INJ (PROTONIX) (C9113) IV (17:03)
[2017-05-18 18:10] LABS: APPEARANCE, URINE CLEAR (CLEAR); BACTERIA, URINE AUTO NEGATIVE (NEGATIVE); BILIRUBIN, URINE AUTO NEGATIVE (NEGATIVE); BLOOD, URINE BLOOD NEGATIVE (NEGATIVE); COLOR, URINE YELLOW (YELLOW); GLUCOSE, URINE (UA) AUTO NEGATIVE (NEGATIVE); KETONE, URINE AUTO NEGATIVE (NEGATIVE); LEUKOCYTE ESTERASE, URINE AUTO NEGATIVE (NEGATIVE); MUCUS, URINE SMALL (NEGATIVE); NITRITE, URINE AUTO NEGATIVE (NEGATIVE); PROTEIN, URINE AUTO NEGATIVE (NEGATIVE); RBC, URINE AUTO 3 /HPF (0-3); SPECIFIC GRAVITY URINE AUTO 1.011 (1.002-1.035); SQUAMOUS EPITHELIAL CELL UR AU 0 /HPF (0-6); UROBILINOGEN, URINE AUTO 0.2 mg/dL (0.0-2.0); WBC, URINE AUTO 1 /HPF (0-3)
[2017-05-18] MEDS: RASAGILINE 1 MG PO (18:48)
[2017-05-18 20:34] LABS: BEDSIDE GLUCOSE 130 MG/DL (83-110)
[2017-05-18] MEDS: ADVAIR HFA 115/21MCG INHALER INH (20:34)
[2017-05-19] MEDS: IPRATROPIUM 0.5MG/ALBUTEROL 2.5MG INH SOL UD 3ML (DUONEB)(J7620) NEB ×4 (01:46→20:00)
[2017-05-19] MEDS: NS 1,000 ML IV ×2 (01:47→19:59)
[2017-05-19] MEDS: VANCOMYCIN HCL 1,000 MG, VIAL MATE ADAPTER 1 EACH in D5W 250 ML IV ×2 (04:00→21:35)
[2017-05-19] MEDS: AZTREONAM 2 GM in D5W MINI-BAG PLUS 50 ML IV ×3 (06:16→23:48)
[2017-05-19 06:36] LABS: HEMATOCRIT 26.5 % (42.0-52.0); HEMOGLOBIN 8.5 g/dl (14.0-18.0); MEAN CORPUSCULAR HEMOGLOBIN 29.3 pg (27.0-33.0); MEAN CORPUSCULAR HGB CONC 32.1 g/dl (32.0-36.5); MEAN CORPUSCULAR VOLUME 91.4 fl (80.0-96.0); RED CELL DISTRIBUTION WIDTH 15.9 % (11.5-14.5); WHITE BLOOD COUNT 10.6 10^3/uL (4.0-10.0)
[2017-05-19 06:50] LABS: ALBUMIN 1.8 GM/DL (3.2-5.2); ALBUMIN/GLOBULIN RATIO 0.69 (1.00-1.93); ALKALINE PHOSPHATASE 111 U/L (45-117); ALT/SGPT 21 U/L (12-78); ANION GAP 8 MEQ/L (8-16); AST/SGOT 32 U/L (7-37); BILIRUBIN,TOTAL 0.3 MG/DL (0.2-1.0); BLOOD UREA NITROGEN 19 MG/DL (7-18); CALCIUM LEVEL 7.7 MG/DL (8.8-10.2); CARBON DIOXIDE LEVEL 28 MEQ/L (21-32); CHLORIDE LEVEL 102 MEQ/L (98-107); CREATININE FOR GFR 0.66 MG/DL (0.70-1.30); GLOMERULAR FILTRATION RATE > 60.0 (>42); GLUCOSE, FASTING 143 MG/DL (70-100); POTASSIUM SERUM 3.5 MEQ/L (3.5-5.1); SODIUM LEVEL 138 MEQ/L (136-145); TOTAL PROTEIN 4.4 GM/DL (6.4-8.2)
[2017-05-19 07:13] LABS: ADD MANUAL DIFFER YES; DIFF SLIDE NUMBER 57; PLATELET COUNT, AUTOMATED 74 10^3/uL (150-450); POS COUNT POS FLAG; POSITIVE MORPH POS FLAG
[2017-05-19 07:37] LABS: BANDS 2 % (< 11); LYMPHOCYTES 2 % (16-52); METAMYELOCYTES 5 % (0-0); MONOCYTES 2 % (0-8); MYELOCYTES 1 % (0-0); NEUTROPHILS 88 % (35-75)
[2017-05-19 07:38] LABS: ANISOCYTOSIS 1+
[2017-05-19 07:39] LABS: PLATELET ESTIMATE DECREASED (NORMAL)
[2017-05-19] MEDS: LevoFLOXacin IV 750 MG in APPROPRIATE DILUENT 1 EA IV (08:00)
[2017-05-19] MEDS: ADVAIR HFA 115/21MCG INHALER INH ×2 (08:09→20:37)
[2017-05-19] MEDS: HumaLOG INSULIN (NovoLOG) PER UNIT SC ×4 (08:23→21:00)
[2017-05-19] MEDS: RASAGILINE 1 MG PO (08:24)
[2017-05-19] MEDS: PRAMIPEXOLE 1 MG TAB PO ×3 (08:24→21:34)
[2017-05-19] MEDS: SINEMET 25-100 MG TAB PO ×4 (08:25→21:34)
[2017-05-19] MEDS: SODIUM CHLORIDE 0.9% INJ 10 ML SYR IV (08:26)
[2017-05-19] MEDS: FLUTICASONE PROP 0.05% NASAL SPRAY 16 GM (FLONASE) (08:26)
[2017-05-19] MEDS: POLYVINYL ALCOHOL OPHTH SOLN 15 ML(LIQUITEARS) OU ×3 (08:27→21:37)
[2017-05-19 11:38] LABS: BEDSIDE GLUCOSE 106 MG/DL (83-110)
[2017-05-19 17:08] LABS: BEDSIDE GLUCOSE 124 MG/DL (83-110)
[2017-05-19] MEDS: PANTOPRAZOLE 40MG INJ (PROTONIX) (C9113) IV (17:08)
[2017-05-20] MEDS: IPRATROPIUM 0.5MG/ALBUTEROL 2.5MG INH SOL UD 3ML (DUONEB)(J7620) NEB ×4 (02:47→20:00)
[2017-05-20] MEDS: LevoFLOXacin IV 750 MG in APPROPRIATE DILUENT 1 EA IV (05:00)
[2017-05-20 05:12] LABS: HEMATOCRIT 28.5 % (42.0-52.0); HEMOGLOBIN 9.2 g/dl (14.0-18.0); MEAN CORPUSCULAR HEMOGLOBIN 29.4 pg (27.0-33.0); MEAN CORPUSCULAR HGB CONC 32.3 g/dl (32.0-36.5); MEAN CORPUSCULAR VOLUME 91.1 fl (80.0-96.0); RED BLOOD COUNT 3.13 10^6/uL (4.30-6.10); RED CELL DISTRIBUTION WIDTH 16.2 % (11.5-14.5); WHITE BLOOD COUNT 17.4 10^3/uL (4.0-10.0)
[2017-05-20 05:13] LABS: ADD MANUAL DIFFER YES; DIFF SLIDE NUMBER 46; PLATELET COUNT, AUTOMATED 87 10^3/uL (150-450); POS COUNT POS FLAG; POSITIVE MORPH POS FLAG
[2017-05-20 05:14] LABS: IMMATURE PLATELET FRACTION % 4.7 % (0.0-10.9)
[2017-05-20 06:02] LABS: ALBUMIN 1.9 GM/DL (3.2-5.2); ALBUMIN/GLOBULIN RATIO 0.68 (1.00-1.93); ALKALINE PHOSPHATASE 147 U/L (45-117); ALT/SGPT 18 U/L (12-78); ANION GAP 8 MEQ/L (8-16); AST/SGOT 30 U/L (7-37); BILIRUBIN,TOTAL 0.3 MG/DL (0.2-1.0); BLOOD UREA NITROGEN 13 MG/DL (7-18); CALCIUM LEVEL 8.2 MG/DL (8.8-10.2); CARBON DIOXIDE LEVEL 28 MEQ/L (21-32); CHLORIDE LEVEL 103 MEQ/L (98-107); CREATININE FOR GFR 0.49 MG/DL (0.70-1.30); GLOMERULAR FILTRATION RATE > 60.0 (>42); GLUCOSE, FASTING 76 MG/DL (70-100); POTASSIUM SERUM 3.2 MEQ/L (3.5-5.1); SODIUM LEVEL 139 MEQ/L (136-145); TOTAL PROTEIN 4.7 GM/DL (6.4-8.2)
[2017-05-20 06:13] LABS: BANDS 1 % (< 11); LYMPHOCYTES 3 % (16-52); NEUTROPHILS 96 % (35-75); PLATELET ESTIMATE DECREASED (NORMAL)
[2017-05-20 06:17] LABS: ANISOCYTOSIS 1+
[2017-05-20] MEDS: POTASSIUM CHLORIDE 10 MEQ SR TABLET PO (06:45)
[2017-05-20] MEDS: AZTREONAM 2 GM in D5W MINI-BAG PLUS 50 ML IV ×3 (07:54→22:32)
[2017-05-20] MEDS: ADVAIR HFA 115/21MCG INHALER INH ×2 (08:00→20:17)
[2017-05-20] MEDS: HumaLOG INSULIN (NovoLOG) PER UNIT SC ×4 (08:00→20:03)
[2017-05-20] MEDS: PRAMIPEXOLE 1 MG TAB PO ×3 (08:28→20:04)
[2017-05-20] MEDS: SINEMET 25-100 MG TAB PO ×4 (08:28→20:02)
[2017-05-20] MEDS: RASAGILINE 1 MG PO (08:28)
[2017-05-20] MEDS: SODIUM CHLORIDE 0.9% INJ 10 ML SYR IV (08:29)
[2017-05-20] MEDS: FLUTICASONE PROP 0.05% NASAL SPRAY 16 GM (FLONASE) (08:29)
[2017-05-20] MEDS: POLYVINYL ALCOHOL OPHTH SOLN 15 ML(LIQUITEARS) OU (08:29)
[2017-05-20] MEDS: POTASSIUM CHL PWD 20 MEQ PACKET PO (08:30)
[2017-05-20 10:12] LABS: BEDSIDE GLUCOSE 107 MG/DL (83-110)
[2017-05-20 10:12] LABS: BEDSIDE GLUCOSE 106 MG/DL (83-110)
[2017-05-20] MEDS: VANCOMYCIN HCL 1,000 MG, VIAL MATE ADAPTER 1 EACH in D5W 250 ML IV (16:18)
[2017-05-20 17:22] LABS: BEDSIDE GLUCOSE 132 MG/DL (83-110)
[2017-05-20] MEDS: OMEPRAZOLE 20 MG CAP PO (20:03)
[2017-05-21] MEDS: IPRATROPIUM 0.5MG/ALBUTEROL 2.5MG INH SOL UD 3ML (DUONEB)(J7620) NEB ×4 (01:35→21:12)
[2017-05-21] MEDS: VANCOMYCIN HCL 1,000 MG, VIAL MATE ADAPTER 1 EACH in D5W 250 ML IV ×2 (03:26→16:59)
[2017-05-21] MEDS: LevoFLOXacin IV 750 MG in APPROPRIATE DILUENT 1 EA IV (05:12)
[2017-05-21 05:49] LABS: HEMATOCRIT 26.7 % (42.0-52.0); HEMOGLOBIN 8.5 g/dl (14.0-18.0); MEAN CORPUSCULAR HEMOGLOBIN 29.3 pg (27.0-33.0); MEAN CORPUSCULAR HGB CONC 31.8 g/dl (32.0-36.5); MEAN CORPUSCULAR VOLUME 92.1 fl (80.0-96.0); RED CELL DISTRIBUTION WIDTH 16.3 % (11.5-14.5); WHITE BLOOD COUNT 20.3 10^3/uL (4.0-10.0)
[2017-05-21 05:54] LABS: ALBUMIN 1.7 GM/DL (3.2-5.2); ALBUMIN/GLOBULIN RATIO 0.61 (1.00-1.93); ALKALINE PHOSPHATASE 139 U/L (45-117); ALT/SGPT 14 U/L (12-78); ANION GAP 10 MEQ/L (8-16); AST/SGOT 26 U/L (7-37); BILIRUBIN,TOTAL 0.3 MG/DL (0.2-1.0); BLOOD UREA NITROGEN 11 MG/DL (7-18); CALCIUM LEVEL 7.9 MG/DL (8.8-10.2); CARBON DIOXIDE LEVEL 26 MEQ/L (21-32); CHLORIDE LEVEL 103 MEQ/L (98-107); CREATININE FOR GFR 0.44 MG/DL (0.70-1.30); GLOMERULAR FILTRATION RATE > 60.0 (>42); GLUCOSE, FASTING 93 MG/DL (70-100); POTASSIUM SERUM 3.4 MEQ/L (3.5-5.1); SODIUM LEVEL 139 MEQ/L (136-145); TOTAL PROTEIN 4.5 GM/DL (6.4-8.2)
[2017-05-21 05:57] LABS: ADD MANUAL DIFFER YES; DIFF SLIDE NUMBER 31; PLATELET COUNT, AUTOMATED 85 10^3/uL (150-450); POSITIVE MORPH POS FLAG
[2017-05-21 05:58] LABS: IMMATURE PLATELET FRACTION % 5.9 % (0.0-10.9)
[2017-05-21] MEDS ORDERED: POTASSIUM CHLORIDE 10% LIQ 20 MEQ/15 ML UDC As Ordered (06:34)
[2017-05-21] MEDS: POTASSIUM CHLORIDE 10% LIQ 20 MEQ/15 ML UDC PO (06:41)
[2017-05-21] MEDS: AZTREONAM 2 GM in D5W MINI-BAG PLUS 50 ML IV ×3 (06:42→23:38)
[2017-05-21 07:08] LABS: ANISOCYTOSIS 1+; BANDS 3 % (< 11); EOSINOPHILS 1 % (0-5); LYMPHOCYTES 4 % (16-52); NEUTROPHILS 92 % (35-75); PLATELET ESTIMATE DECREASED (NORMAL)
[2017-05-21] MEDS: HumaLOG INSULIN (NovoLOG) PER UNIT SC ×4 (07:30→21:00)
[2017-05-21] MEDS: ADVAIR HFA 115/21MCG INHALER INH ×2 (07:45→21:12)
[2017-05-21] MEDS: OMEPRAZOLE 20 MG CAP PO ×2 (09:11→20:30)
[2017-05-21] MEDS: SINEMET 25-100 MG TAB PO ×4 (09:12→20:31)
[2017-05-21] MEDS: PRAMIPEXOLE 1 MG TAB PO ×3 (09:12→20:26)
[2017-05-21] MEDS: RASAGILINE 1 MG PO (09:12)
[2017-05-21] MEDS: FLUTICASONE PROP 0.05% NASAL SPRAY 16 GM (FLONASE) (09:13)
[2017-05-21] MEDS: SODIUM CHLORIDE 0.9% INJ 10 ML SYR IV (09:13)
[2017-05-21] MEDS: POLYVINYL ALCOHOL OPHTH SOLN 15 ML(LIQUITEARS) OU (09:13)
[2017-05-22] MEDS: IPRATROPIUM 0.5MG/ALBUTEROL 2.5MG INH SOL UD 3ML (DUONEB)(J7620) NEB ×4 (02:18→20:00)
[2017-05-22 02:53] LABS: BEDSIDE GLUCOSE 105 MG/DL (83-110)
[2017-05-22 02:53] LABS: BEDSIDE GLUCOSE 82 MG/DL (83-110)
[2017-05-22 02:53] LABS: BEDSIDE GLUCOSE 95 MG/DL (83-110)
[2017-05-22 02:53] LABS: BEDSIDE GLUCOSE 76 MG/DL (83-110)
[2017-05-22 02:53] LABS: BEDSIDE GLUCOSE 80 MG/DL (83-110)
[2017-05-22] MEDS: VANCOMYCIN HCL 1,000 MG, VIAL MATE ADAPTER 1 EACH in D5W 250 ML IV (03:41)
[2017-05-22] MEDS: AZTREONAM 2 GM in D5W MINI-BAG PLUS 50 ML IV ×2 (06:13→15:55)
[2017-05-22] MEDS: HumaLOG INSULIN (NovoLOG) PER UNIT SC ×4 (07:30→21:00)
[2017-05-22 08:07] LABS: HEMATOCRIT 25.8 % (42.0-52.0); HEMOGLOBIN 8.5 g/dl (14.0-18.0); MEAN CORPUSCULAR HEMOGLOBIN 29.9 pg (27.0-33.0); MEAN CORPUSCULAR HGB CONC 32.9 g/dl (32.0-36.5); MEAN CORPUSCULAR VOLUME 90.8 fl (80.0-96.0); RED BLOOD COUNT 2.84 10^6/uL (4.30-6.10); RED CELL DISTRIBUTION WIDTH 16.6 % (11.5-14.5); WHITE BLOOD COUNT 24.6 10^3/uL (4.0-10.0)
[2017-05-22 08:40] LABS: ALBUMIN 1.7 GM/DL (3.2-5.2); ALBUMIN/GLOBULIN RATIO 0.55 (1.00-1.93); ALKALINE PHOSPHATASE 213 U/L (45-117); ALT/SGPT 11 U/L (12-78); ANION GAP 10 MEQ/L (8-16); AST/SGOT 31 U/L (7-37); BILIRUBIN,TOTAL 0.3 MG/DL (0.2-1.0); BLOOD UREA NITROGEN 9 MG/DL (7-18); CALCIUM LEVEL 7.7 MG/DL (8.8-10.2); CARBON DIOXIDE LEVEL 24 MEQ/L (21-32); CHLORIDE LEVEL 104 MEQ/L (98-107); CREATININE FOR GFR 0.45 MG/DL (0.70-1.30); GLOMERULAR FILTRATION RATE > 60.0 (>42); GLUCOSE, FASTING 86 MG/DL (70-100); POTASSIUM SERUM 3.2 MEQ/L (3.5-5.1); SODIUM LEVEL 138 MEQ/L (136-145); TOTAL PROTEIN 4.8 GM/DL (6.4-8.2)
[2017-05-22 08:58] LABS: PLATELET COUNT, AUTOMATED 66 10^3/uL (150-450)
[2017-05-22 08:59] LABS: ADD MANUAL DIFFER YES; DIFF SLIDE NUMBER 33; IMMATURE PLATELET FRACTION % 5.2 % (0.0-10.9); PLATELET F 78; POS COUNT POS FLAG; POSITIVE MORPH POS FLAG
[2017-05-22 09:12] LABS: BANDS 8 % (< 11); BASOPHILS 1 % (0-4); LYMPHOCYTES 4 % (16-52); MONOCYTES 1 % (0-8); NEUTROPHILS 86 % (35-75)
[2017-05-22 09:15] LABS: ANISOCYTOSIS 1+; POIKILOCYTOSIS 2+
[2017-05-22 09:16] LABS: PLATELET ESTIMATE DECREASED (NORMAL)
[2017-05-22] MEDS: ADVAIR HFA 115/21MCG INHALER INH ×2 (09:16→20:56)
[2017-05-22] MEDS: OMEPRAZOLE 20 MG CAP PO ×2 (10:06→21:25)
[2017-05-22] MEDS: RASAGILINE 1 MG PO (10:06)
[2017-05-22] MEDS: SINEMET 25-100 MG TAB PO ×4 (10:06→21:23)
[2017-05-22] MEDS: PRAMIPEXOLE 1 MG TAB PO ×3 (10:06→21:26)
[2017-05-22] MEDS: FLUTICASONE PROP 0.05% NASAL SPRAY 16 GM (FLONASE) (10:07)
[2017-05-22] MEDS: SODIUM CHLORIDE 0.9% INJ 10 ML SYR IV (10:07)
[2017-05-22] MEDS: POTASSIUM CHLORIDE 10% LIQ 20 MEQ/15 ML UDC PO (14:08)
[2017-05-22 16:38] LABS: VANCOMYCIN LEVEL TROUGH 12.7 UG/ML (10.0-20.0)
[2017-05-23] MEDS: IPRATROPIUM 0.5MG/ALBUTEROL 2.5MG INH SOL UD 3ML (DUONEB)(J7620) NEB ×4 (02:42→20:00)
[2017-05-23] MEDS: LevoFLOXacin 750 MG TABLET PO (05:39)
[2017-05-23] MEDS: SODIUM CHLORIDE 0.9% INJ 10 ML SYR IV ×2 (05:39→17:41)
[2017-05-23 06:17] LABS: HEMATOCRIT 25.6 % (42.0-52.0); HEMOGLOBIN 8.5 g/dl (14.0-18.0); MEAN CORPUSCULAR HEMOGLOBIN 30.1 pg (27.0-33.0); MEAN CORPUSCULAR HGB CONC 33.2 g/dl (32.0-36.5); MEAN CORPUSCULAR VOLUME 90.8 fl (80.0-96.0); RED BLOOD COUNT 2.82 10^6/uL (4.30-6.10); RED CELL DISTRIBUTION WIDTH 16.9 % (11.5-14.5)
[2017-05-23 06:20] LABS: PLATELET COUNT, AUTOMATED 67 10^3/uL (150-450); POS COUNT POS FLAG; POSITIVE MORPH POS FLAG
[2017-05-23 06:21] LABS: ADD MANUAL DIFFER YES; DIFF SLIDE NUMBER 19
[2017-05-23 06:41] LABS: ALBUMIN 1.8 GM/DL (3.2-5.2); ALBUMIN/GLOBULIN RATIO 0.67 (1.00-1.93); ALKALINE PHOSPHATASE 229 U/L (45-117); ALT/SGPT 10 U/L (12-78); ANION GAP 7 MEQ/L (8-16); AST/SGOT 27 U/L (7-37); BILIRUBIN,TOTAL 0.3 MG/DL (0.2-1.0); BLOOD UREA NITROGEN 7 MG/DL (7-18); CALCIUM LEVEL 7.8 MG/DL (8.8-10.2); CARBON DIOXIDE LEVEL 26 MEQ/L (21-32); CHLORIDE LEVEL 106 MEQ/L (98-107); CREATININE FOR GFR 0.36 MG/DL (0.70-1.30); GLOMERULAR FILTRATION RATE > 60.0 (>42); GLUCOSE, FASTING 80 MG/DL (70-100); MAGNESIUM LEVEL 2.1 MG/DL (1.8-2.4); POTASSIUM SERUM 3.7 MEQ/L (3.5-5.1); SODIUM LEVEL 139 MEQ/L (136-145); TOTAL PROTEIN 4.5 GM/DL (6.4-8.2)
[2017-05-23 06:46] LABS: BANDS 2 % (< 11); LYMPHOCYTES 4 % (16-52); MONOCYTES 2 % (0-8); NEUTROPHILS 92 % (35-75); PLATELET ESTIMATE DECREASED (NORMAL)
[2017-05-23 06:47] LABS: POLYCHROMASIA 1+
[2017-05-23] MEDS: HumaLOG INSULIN (NovoLOG) PER UNIT SC ×4 (07:30→21:00)
[2017-05-23] MEDS: OMEPRAZOLE 20 MG CAP PO ×2 (09:00→19:39)
[2017-05-23] MEDS: ADVAIR HFA 115/21MCG INHALER INH ×2 (09:27→21:17)
[2017-05-23] MEDS: SINEMET 25-100 MG TAB PO ×4 (09:49→19:39)
[2017-05-23] MEDS: RASAGILINE 1 MG PO (09:50)
[2017-05-23] MEDS: PRAMIPEXOLE 1 MG TAB PO ×3 (09:50→19:40)
[2017-05-23] MEDS: FLUTICASONE PROP 0.05% NASAL SPRAY 16 GM (FLONASE) (09:51)
[2017-05-23] MEDS: TORSEMIDE 20 MG TAB PO ×2 (11:44→19:42)
[2017-05-23] MEDS: aMILoride 5 MG TAB PO (11:45)
[2017-05-23 18:21] LABS: DIFF SLIDE NUMBER 265
[2017-05-23 19:26] LABS: BANDS 2 % (< 11); LYMPHOCYTES 5 % (16-52); METAMYELOCYTES 1 % (0-0); MONOCYTES 2 % (0-8); MYELOCYTES 1 % (0-0); NEUTROPHILS 88 % (35-75); PROMYELOCYTES 1 % (0-0)
[2017-05-23 19:27] LABS: ANISOCYTOSIS 1+; PLATELET ESTIMATE DECREASED (NORMAL)
[2017-05-23 19:29] LABS: REASON FOR REVIEW WBC/LEUKEMIA/BLAST; SLIDE REVIEW Report; SOURCE PERIPHERAL SMEAR
[2017-05-24] MEDS: IPRATROPIUM 0.5MG/ALBUTEROL 2.5MG INH SOL UD 3ML (DUONEB)(J7620) NEB ×2 (00:14→08:00)
[2017-05-24] MEDS: LevoFLOXacin 750 MG TABLET PO (05:11)
[2017-05-24 05:31] LABS: HEMATOCRIT 30.4 % (42.0-52.0); HEMOGLOBIN 10.1 g/dl (14.0-18.0); MEAN CORPUSCULAR HEMOGLOBIN 29.7 pg (27.0-33.0); MEAN CORPUSCULAR HGB CONC 33.2 g/dl (32.0-36.5); MEAN CORPUSCULAR VOLUME 89.4 fl (80.0-96.0); RED CELL DISTRIBUTION WIDTH 17.2 % (11.5-14.5)
[2017-05-24 05:58] LABS: WHITE BLOOD COUNT 49.4 10^3/uL (4.0-10.0)
[2017-05-24 05:59] LABS: ADD MANUAL DIFFER YES; DIFF SLIDE NUMBER 99; PLATELET COUNT, AUTOMATED 77 10^3/uL (150-450); POS COUNT POS FLAG; POSITIVE DIFF POS FLAG; POSITIVE MORPH POS FLAG
[2017-05-24 06:00] LABS: IMMATURE PLATELET FRACTION % 5.7 % (0.0-10.9)
[2017-05-24 06:04] LABS: EOSINOPHILS 1 % (0-5); LYMPHOCYTES 3 % (16-52); MONOCYTES 3 % (0-8); NEUTROPHILS 93 % (35-75)
[2017-05-24 06:07] LABS: PLATELET ESTIMATE DECREASED (NORMAL)
[2017-05-24 06:08] LABS: TOXIC GRANULATION 1+
[2017-05-24 06:22] LABS: ALBUMIN 2.4 GM/DL (3.2-5.2); ALBUMIN/GLOBULIN RATIO 0.73 (1.00-1.93); ALKALINE PHOSPHATASE 330 U/L (45-117); ALT/SGPT 9 U/L (12-78); ANION GAP 13 MEQ/L (8-16); AST/SGOT 30 U/L (7-37); BILIRUBIN,TOTAL 0.4 MG/DL (0.2-1.0); BLOOD UREA NITROGEN 12 MG/DL (7-18); CALCIUM LEVEL 8.6 MG/DL (8.8-10.2); CARBON DIOXIDE LEVEL 24 MEQ/L (21-32); CHLORIDE LEVEL 102 MEQ/L (98-107); CREATININE FOR GFR 0.64 MG/DL (0.70-1.30); GLUCOSE, FASTING 114 MG/DL (70-100); MAGNESIUM LEVEL 2.1 MG/DL (1.8-2.4); POTASSIUM SERUM 3.5 MEQ/L (3.5-5.1); SODIUM LEVEL 139 MEQ/L (136-145); TOTAL PROTEIN 5.7 GM/DL (6.4-8.2)
[2017-05-24 06:25] LABS: GLOMERULAR FILTRATION RATE > 60.0 (>42)
[2017-05-24] MEDS: HumaLOG INSULIN (NovoLOG) PER UNIT SC ×2 (07:30→12:00)
[2017-05-24] MEDS: SODIUM CHLORIDE 0.9% INJ 10 ML SYR IV (08:26)
[2017-05-24] MEDS: PRAMIPEXOLE 1 MG TAB PO (08:26)
[2017-05-24] MEDS: RASAGILINE 1 MG PO (08:26)
[2017-05-24 08:27] LABS: BEDSIDE GLUCOSE 89 MG/DL (83-110)
[2017-05-24 08:27] LABS: BEDSIDE GLUCOSE 95 MG/DL (83-110)
[2017-05-24 08:27] LABS: BEDSIDE GLUCOSE 179 MG/DL (83-110)
[2017-05-24 08:27] LABS: BEDSIDE GLUCOSE 87 MG/DL (83-110)
[2017-05-24 08:27] LABS: BEDSIDE GLUCOSE 122 MG/DL (83-110)
[2017-05-24] MEDS: aMILoride 5 MG TAB PO (08:27)
[2017-05-24] MEDS: SINEMET 25-100 MG TAB PO ×2 (08:27→12:35)
[2017-05-24] MEDS: TORSEMIDE 20 MG TAB PO (08:27)
[2017-05-24] MEDS: OMEPRAZOLE 20 MG CAP PO (08:28)
[2017-05-24] MEDS: FLUTICASONE PROP 0.05% NASAL SPRAY 16 GM (FLONASE) (08:28)
[2017-05-24] MEDS: ADVAIR HFA 115/21MCG INHALER INH (08:37)
[2017-05-24 11:43] LABS: BEDSIDE GLUCOSE 122 MG/DL (83-110)
[2017-05-24 21:47] LABS: BEDSIDE GLUCOSE 116 MG/DL (83-110)
[2017-05-24 21:47] LABS: BEDSIDE GLUCOSE 86 MG/DL (83-110)
== END 2017-05-24 14:00 | disposition home health service (06) | DRG 871 ==
LOC: M MS5PR 05-21 18:12 → M ED 10:03 → M ED INP 12:59 → M ICU 14:46
DX: A41.9 Sepsis, unspecified organism (principal); R65.21 Severe sepsis with septic shock; J15.0 Pneumonia due to Klebsiella pneumoniae; C22.1 Intrahepatic bile duct carcinoma; I10 Essential (primary) hypertension; J44.9 Chronic obstructive pulmonary disease, unspecified; E78.5 Hyperlipidemia, unspecified; G20 Parkinson's disease; D64.81 Anemia due to antineoplastic chemotherapy; D69.59 Other secondary thrombocytopenia; R60.0 Localized edema; G47.33 Obstructive sleep apnea (adult) (pediatric); E11.9 Type 2 diabetes mellitus without complications; Z85.118 Personal history of other malignant neoplasm of bronchus and lung; Z90.2 Acquired absence of lung [part of]; Z88.0 Allergy status to penicillin; Z87.891 Personal history of nicotine dependence; Z79.84 Long term (current) use of oral hypoglycemic drugs; Z79.899 Other long term (current) drug therapy

== ENCOUNTER → 2017-05-30 | Outpatient (REF) | payer MEDICARE, OTHER ==
[2017-05-30 18:40] LABS: MAGNESIUM LEVEL 1.9 MG/DL (1.8-2.4)
[2017-05-30 18:40] LABS: PHOSPHORUS LEVEL 3.3 MG/DL (2.5-4.9)
== END ==
LOC: M LAB REF 17:22
DX: I50.32 Chronic diastolic (congestive) heart failure (principal); E83.42 Hypomagnesemia

== ENCOUNTER → 2017-05-30 | Outpatient (REF) | payer MEDICARE, OTHER ==
[2017-05-30 19:19] LABS: CA19-9 TUMOR MARKER,CARBOHYDRA 76.9 U/ML (<35.0)
== END ==
LOC: M LAB REF 17:32
DX: C34.90 Malignant neoplasm of unspecified part of unspecified bronchus or lung (principal); I50.32 Chronic diastolic (congestive) heart failure; E83.42 Hypomagnesemia
CPT/HCPCS: 83735

== ENCOUNTER → 2017-06-05 | Outpatient (CLI) | payer MEDICARE, OTHER ==
[~2017-06-05] MED LIST changes: -ADV250INH INH; -ALEV220C2 PO; -AMIL5TA PO; -ARTI99.0 OU; -ASPI1TAB PO; -ATEN100T PO; -AZIL0.5T PO; -AZIL1TAB PO; -AZIL1TAB2 PO; -CIPR-249 PO; -CIPR500T89 PO; -CLEO300C2 PO; -CO Q400C2 PO; -COMBAER6 INH; -COMBIN INH; -FLON1SPR; -FLUTISP; +GASTROGRAFIN SOLUTION 30ML (Q9963) As Ordered; -HYDR10TA13 PO; +ISOVUE-370 76% 100ML VIAL (Q9967) As Ordered; -LISI5TAB PO; -METF1000 PO; -METF500T13 PO; -METF500T4 PO; -METR500T10 PO; -MIRA0.12 PO; -MIRA1.5T2 PO; -MIRA1.5T4 PO; -MULT1TAB10 PO; -MULTTAB4 PO; -NYST50SS SS; -OMEP20CA3 PO; -OMEP40CA2 PO; -REST0.05 OU; -SENO8.6T9 PO; -SIMV10TA2 PO; -SINE25TA PO; -SINE25TA5 PO; -TORS10TA3 PO; -TORS20TA2 PO; -TYLE325T5 PO; -ZOCO10TA PO
== END ==
LOC: M RAD 12:59
DX: C22.1 Intrahepatic bile duct carcinoma (principal); R91.8 Other nonspecific abnormal finding of lung field; Z96.9 Presence of functional implant, unspecified
CPT/HCPCS: Q9963

== ENCOUNTER → 2017-06-07 | Outpatient (REF) | payer MEDICARE, OTHER ==
[2017-06-08 13:56] LABS: IMMEDIATE SPIN CROSSMATCH 1 2
[2017-06-09 11:15] LABS: CA19-9 TUMOR MARKER,CARBOHYDRA 47.8 U/ML (<35.0)
== END ==
LOC: M LAB REF 17:07
PROVIDERS: Pediatrics
DX: D64.9 Anemia, unspecified (principal); C34.90 Malignant neoplasm of unspecified part of unspecified bronchus or lung; I50.32 Chronic diastolic (congestive) heart failure; E83.42 Hypomagnesemia
CPT/HCPCS: 83735

== ENCOUNTER → 2017-06-07 | Outpatient (REF) | payer MEDICARE, OTHER ==
[2017-06-07 19:09] LABS: MAGNESIUM LEVEL 2.1 MG/DL (1.8-2.4)
[2017-06-07 19:09] LABS: PHOSPHORUS LEVEL 3.9 MG/DL (2.5-4.9)
== END ==
LOC: M LAB REF 18:00
DX: I50.32 Chronic diastolic (congestive) heart failure (principal); E83.42 Hypomagnesemia

== ENCOUNTER 2017-06-08 11:00 | Outpatient (CLI) | payer MEDICARE, OTHER ==
[2017-06-08] MEDS ORDERED: SODIUM CHLORIDE 0.9% INJ 10 ML SYR IV (12:00)
[2017-06-08] MEDS: diphenhydrAMINE 25 MG CAP PO (12:59)
[2017-06-08] MEDS: ACETAMINOPHEN TAB 650MG DOSE (2X325MG) PO (13:00)
[2017-06-09] MEDS ORDERED: SODIUM CHLORIDE 0.9% INJ 10 ML SYR IV (09:00)
== END 2017-06-08 18:58 | disposition home or self-care (01) ==
LOC: M OPCLI5PR 11:00 → M MS5PR 11:04 → M OPCLI5PR 18:59
DX: D64.81 Anemia due to antineoplastic chemotherapy (principal)
CPT/HCPCS: 36430

== ENCOUNTER → 2017-06-13 | Outpatient (REF) | payer MEDICARE, OTHER ==
[2017-06-13 19:39] LABS: CA19-9 TUMOR MARKER,CARBOHYDRA 39.6 U/ML (<35.0)
== END ==
LOC: M LAB REF 17:31
DX: C34.90 Malignant neoplasm of unspecified part of unspecified bronchus or lung (principal)
CPT/HCPCS: 86301

== ENCOUNTER → 2017-07-11 | Outpatient (CLI) | payer MEDICARE, OTHER | LOC: M RAD 14:43 | DX: C25.9 Malignant neoplasm of pancreas, unspecified (principal); R50.9 Fever, unspecified; I10 Essential (primary) hypertension; E78.2 Mixed hyperlipidemia; E11.9 Type 2 diabetes mellitus without complications; C34.90 Malignant neoplasm of unspecified part of unspecified bronchus or lung | CPT/HCPCS: 71046 ==

== ENCOUNTER → 2017-07-11 | Outpatient (REF) | payer MEDICARE, OTHER ==
[2017-07-11 14:15] LABS: ESTIMATED AVERAGE GLUCOSE 123 MG/DL (60-110); HEMOGLOBIN A1c 5.9 %
[2017-07-11 14:24] LABS: CHOLESTEROL LEVEL 135 MG/DL (<200); CHOLESTEROL RISK RATIO 2.934 (<5); HDL CHOLESTEROL 46 MG/DL (>40); LDL CHOLESTEROL 72.4 MG/DL (<100); NON-HDL-C 89 MG/DL; TRIGLYCERIDES LEVEL 83 MG/DL (<150)
== END ==
LOC: M LAB REF 13:47
DX: E78.2 Mixed hyperlipidemia (principal); E11.9 Type 2 diabetes mellitus without complications

== ENCOUNTER → 2017-07-11 | Outpatient (REF) | payer MEDICARE, OTHER ==
[2017-07-11 16:50] LABS: CA19-9 TUMOR MARKER,CARBOHYDRA 179.9 U/ML (<35.0)
== END ==
LOC: M LAB REF 15:38
DX: C34.90 Malignant neoplasm of unspecified part of unspecified bronchus or lung (principal)

== ENCOUNTER → 2017-07-17 | Outpatient (CLI) | payer MEDICARE, OTHER | LOC: M RAD 13:50 | DX: C25.9 Malignant neoplasm of pancreas, unspecified (principal); K59.00 Constipation, unspecified; Z90.49 Acquired absence of other specified parts of digestive tract; K76.89 Other specified diseases of liver | CPT/HCPCS: Q9963 ==

== ENCOUNTER → 2017-07-18 | Outpatient (REF) | payer MEDICARE, OTHER ==
[2017-07-18 18:53] LABS: PHOSPHORUS LEVEL 3.8 MG/DL (2.5-4.9)
== END ==
LOC: M LAB REF 17:43
DX: I50.32 Chronic diastolic (congestive) heart failure (principal)
CPT/HCPCS: 84100

== ENCOUNTER → 2017-07-18 | Outpatient (REF) | payer MEDICARE, OTHER ==
[2017-07-18 19:42] LABS: CA19-9 TUMOR MARKER,CARBOHYDRA 47.7 U/ML (<35.0)
== END ==
LOC: M LAB REF 17:42
DX: C24.0 Malignant neoplasm of extrahepatic bile duct (principal); C78.7 Secondary malignant neoplasm of liver and intrahepatic bile duct
CPT/HCPCS: 86301

== ENCOUNTER → 2017-08-01 | Outpatient (REF) | payer MEDICARE, OTHER ==
[2017-08-03 11:31] LABS: IMMEDIATE SPIN CROSSMATCH 1 2
== END ==
LOC: M LAB REF 16:55
PROVIDERS: Emergency Medicine Pediatric Emergency Medicine
DX: D64.9 Anemia, unspecified (principal)
CPT/HCPCS: 86900

== ENCOUNTER 2017-08-03 09:07 | Outpatient (CLI) | payer MEDICARE, OTHER ==
[2017-08-03] MEDS: diphenhydrAMINE 25 MG CAP PO (10:50)
[2017-08-03] MEDS: ACETAMINOPHEN TAB 650MG DOSE (2X325MG) PO (10:50)
[2017-08-03] MEDS: SODIUM CHLORIDE 0.9% INJ 10 ML SYR IV (16:01)
[2017-08-04] MEDS ORDERED: SODIUM CHLORIDE 0.9% INJ 10 ML SYR IV (09:00)
== END 2017-08-03 16:10 | disposition home or self-care (01) ==
LOC: M OPCLI4PV 09:07 → M MSPAV 09:20 → M OPCLI4PV 16:10
DX: D64.81 Anemia due to antineoplastic chemotherapy (principal)
CPT/HCPCS: 36430

== ENCOUNTER → 2017-08-29 | Outpatient (REF) | payer MEDICARE, OTHER ==
[2017-08-29 19:18] LABS: CA19-9 TUMOR MARKER,CARBOHYDRA 203.3 U/ML (<35.0)
== END ==
LOC: M LAB REF 17:44
DX: C24.0 Malignant neoplasm of extrahepatic bile duct (principal); C78.7 Secondary malignant neoplasm of liver and intrahepatic bile duct
CPT/HCPCS: 86301

== ENCOUNTER → 2017-09-19 | Outpatient (REF) | payer MEDICARE, OTHER ==
[2017-09-19 20:22] LABS: CA19-9 TUMOR MARKER,CARBOHYDRA 126.8 U/ML (<35.0)
== END ==
LOC: M LAB REF 17:18
DX: C24.0 Malignant neoplasm of extrahepatic bile duct (principal); C78.7 Secondary malignant neoplasm of liver and intrahepatic bile duct
CPT/HCPCS: 86301

== ENCOUNTER → 2017-09-25 | Outpatient (CLI) | payer MEDICARE, OTHER | LOC: M RAD 13:24 | DX: C22.1 Intrahepatic bile duct carcinoma (principal); Z97.8 Presence of other specified devices | CPT/HCPCS: Q9963 ==

== ENCOUNTER → 2017-10-17 | Outpatient (REF) | payer MEDICARE, OTHER ==
[2017-10-17 23:06] LABS: CA19-9 TUMOR MARKER,CARBOHYDRA 97.2 U/ML (<35.0)
== END ==
LOC: M LAB REF 17:52
DX: C24.0 Malignant neoplasm of extrahepatic bile duct (principal); C78.7 Secondary malignant neoplasm of liver and intrahepatic bile duct
CPT/HCPCS: 86301

== ENCOUNTER → 2017-11-06 | Outpatient (CLI) | payer MEDICARE, OTHER ==
[2017-11-06 11:37] LABS: BASO % 0.3 % (0.0-1.0); EOS % 0.5 % (0.0-3.0); HEMATOCRIT 27.5 % (42.0-52.0); HEMOGLOBIN 8.7 g/dl (13.5-17.5); IMMATURE GRANULOCYTE % 0.5 % (0-3.0); LYMPH # 0.7 10^3/uL (1.5-4.5); LYMPH % 11.5 % (24.0-44.0); MEAN CORPUSCULAR HEMOGLOBIN 31.6 pg (27.0-33.0); MEAN CORPUSCULAR HGB CONC 31.6 g/dl (32.0-36.5); MONO # 0.1 10^3/uL (0.0-0.8); MONO % 2.1 % (0.0-5.0); NEUTROPHILS # 5.4 10^3/uL (1.8-7.7); NEUTROPHILS % 85.1 % (36.0-66.0); PLATELET COUNT, AUTOMATED 204 10^3/uL (150-450); RED BLOOD COUNT 2.75 10^6/uL (4.30-6.10); RED CELL DISTRIBUTION WIDTH 17.6 % (11.5-14.5); WHITE BLOOD COUNT 6.3 10^3/uL (4.0-10.0)
[2017-11-06 12:18] LABS: ALBUMIN 2.7 GM/DL (3.2-5.2); ALBUMIN/GLOBULIN RATIO 0.87 (1.00-1.93); ALKALINE PHOSPHATASE 335 U/L (45-117); ALT/SGPT 26 U/L (12-78); ANION GAP 5 MEQ/L (8-16); AST/SGOT 37 U/L (7-37); BILIRUBIN,TOTAL 0.4 MG/DL (0.2-1.0); BLOOD UREA NITROGEN 11 MG/DL (7-18); CALCIUM LEVEL 8.3 MG/DL (8.8-10.2); CARBON DIOXIDE LEVEL 30 MEQ/L (21-32); CHLORIDE LEVEL 104 MEQ/L (98-107); CREATININE FOR GFR 0.45 MG/DL (0.70-1.30); GLOMERULAR FILTRATION RATE > 60.0 (>42); GLUCOSE, FASTING 82 MG/DL (70-100); POTASSIUM SERUM 4.3 MEQ/L (3.5-5.1); SODIUM LEVEL 139 MEQ/L (136-145); TOTAL PROTEIN 5.8 GM/DL (6.4-8.2)
[2017-11-06 16:27] LABS: ESTIMATED AVERAGE GLUCOSE 103 MG/DL (60-110); HEMOGLOBIN A1c 5.2 %
[2017-11-07 08:49] LABS: CA19-9 TUMOR MARKER,CARBOHYDRA 113.8 U/ML (<35.0)
== END ==
LOC: M LAB 10:42
DX: C24.9 Malignant neoplasm of biliary tract, unspecified (principal); E11.69 Type 2 diabetes mellitus with other specified complication
CPT/HCPCS: 80053

== ENCOUNTER 2017-11-14 14:18 | Emergency (ER) | payer MEDICARE, OTHER ==
[2017-11-14 15:56] LABS: BASO % 0.2 % (0.0-1.0); EOS # 0.1 10^3/uL (0.0-0.50); EOS % 1.6 % (0.0-3.0); HEMATOCRIT 26.9 % (42.0-52.0); HEMOGLOBIN 8.4 g/dl (13.5-17.5); IMMATURE GRANULOCYTE % 0.4 % (0-3.0); LYMPH # 0.6 10^3/uL (1.5-4.5); LYMPH % 12.2 % (24.0-44.0); MEAN CORPUSCULAR HEMOGLOBIN 31.2 pg (27.0-33.0); MEAN CORPUSCULAR HGB CONC 31.2 g/dl (32.0-36.5); MONO # 0.7 10^3/uL (0.0-0.8); MONO % 13.2 % (0.0-5.0); NEUTROPHILS # 3.7 10^3/uL (1.8-7.7); NEUTROPHILS % 72.4 % (36.0-66.0); PLATELET COUNT, AUTOMATED 316 10^3/uL (150-450); RED BLOOD COUNT 2.69 10^6/uL (4.30-6.10); RED CELL DISTRIBUTION WIDTH 16.7 % (11.5-14.5); WHITE BLOOD COUNT 5.1 10^3/uL (4.0-10.0)
[2017-11-14] MEDS: ACETAMINOPHEN TAB 650MG DOSE (2X325MG) PO (16:00)
[2017-11-14 16:08] LABS: ALBUMIN 2.3 GM/DL (3.2-5.2); ALKALINE PHOSPHATASE 643 U/L (45-117); ALT/SGPT 16 U/L (12-78); ANION GAP 4 MEQ/L (8-16); AST/SGOT 40 U/L (7-37); BILIRUBIN,TOTAL 0.5 MG/DL (0.2-1.0); BLOOD UREA NITROGEN 9 MG/DL (7-18); CARBON DIOXIDE LEVEL 25 MEQ/L (21-32); CHLORIDE LEVEL 107 MEQ/L (98-107); CREATININE FOR GFR 0.38 MG/DL (0.70-1.30); GLOMERULAR FILTRATION RATE > 60.0 (>42); GLUCOSE, FASTING 77 MG/DL (70-100); INR 1.05; POTASSIUM SERUM 3.6 MEQ/L (3.5-5.1); PROTHROMBIN TIME 13.8 SECONDS (12.1-14.4); SODIUM LEVEL 136 MEQ/L (136-145); TOTAL PROTEIN 5.6 GM/DL (6.4-8.2)
[2017-11-14] MEDS ORDERED: ISOVUE-370 76% 100ML VIAL (Q9967) As Ordered (20:27)
[2017-11-14] MEDS: ASPIRIN 81 MG CHEW TABLET PO (22:11)
[2017-11-14] MEDS ORDERED: ASPIRIN 325 MG TAB PO (22:15)
== END 2017-11-14 22:35 | disposition home or self-care (01) ==
LOC: M ED 14:18
DX: R29.810 Facial weakness (principal); I11.9 Hypertensive heart disease without heart failure; E78.5 Hyperlipidemia, unspecified; C24.0 Malignant neoplasm of extrahepatic bile duct; C78.7 Secondary malignant neoplasm of liver and intrahepatic bile duct; Z86.73 Personal history of transient ischemic attack (TIA), and cerebral infarction without residual deficits; I67.82 Cerebral ischemia; Z88.0 Allergy status to penicillin; Z79.899 Other long term (current) drug therapy; Z79.51 Long term (current) use of inhaled steroids
CPT/HCPCS: Q9967

== ENCOUNTER → 2017-11-14 | Outpatient (REF) | payer MEDICARE, OTHER | LOC: M LAB REF 20:28 | DX: C24.0 Malignant neoplasm of extrahepatic bile duct (principal); C78.7 Secondary malignant neoplasm of liver and intrahepatic bile duct ==

== ENCOUNTER 2017-11-20 12:00 | Outpatient (CLI) | payer MEDICARE, OTHER ==
[2017-11-20] MEDS: ACETAMINOPHEN TAB 650MG DOSE (2X325MG) PO (12:26)
[2017-11-20] MEDS: diphenhydrAMINE 25 MG CAP PO (12:26)
[2017-11-20 12:32] LABS: IMMEDIATE SPIN CROSSMATCH 1 2
[2017-11-20] MEDS: SODIUM CHLORIDE 0.9% INJ 10 ML SYR IV (16:38)
== END 2017-11-20 16:45 | disposition home or self-care (01) ==
LOC: M INFU 12:00
DX: D64.81 Anemia due to antineoplastic chemotherapy (principal); G20 Parkinson's disease; E78.00 Pure hypercholesterolemia, unspecified; I10 Essential (primary) hypertension; J44.9 Chronic obstructive pulmonary disease, unspecified; Z85.118 Personal history of other malignant neoplasm of bronchus and lung; G47.30 Sleep apnea, unspecified; E11.9 Type 2 diabetes mellitus without complications; M19.90 Unspecified osteoarthritis, unspecified site; Z79.82 Long term (current) use of aspirin; Z79.899 Other long term (current) drug therapy; Z79.84 Long term (current) use of oral hypoglycemic drugs
CPT/HCPCS: 36430

== ENCOUNTER → 2017-12-12 | Outpatient (CLI) | payer MEDICARE, OTHER ==
[2017-12-12 11:29] LABS: HEMATOCRIT 32.1 % (42.0-52.0); HEMOGLOBIN 10.1 g/dl (13.5-17.5); MEAN CORPUSCULAR HGB CONC 31.5 g/dl (32.0-36.5); MEAN CORPUSCULAR VOLUME 98.5 fl (80.0-96.0); PLATELET COUNT, AUTOMATED 134 10^3/uL (150-450); RED BLOOD COUNT 3.26 10^6/uL (4.30-6.10); RED CELL DISTRIBUTION WIDTH 14.6 % (11.5-14.5)
[2017-12-12 11:35] LABS: ADD MANUAL DIFFER YES; DIFF SLIDE NUMBER 197; POS COUNT POS FLAG; POSITIVE DIFF POS FLAG; POSITIVE MORPH POS FLAG; WHITE BLOOD COUNT 1.5 10^3/uL (4.0-10.0)
[2017-12-12 11:53] LABS: DRVV SCREEN 34.6 SEC
[2017-12-12 11:54] LABS: PTT LUPUS TYPE ANTICOAG SCREEN 0.8 (0-1.2)
[2017-12-12 11:57] LABS: EOSINOPHILS 1 % (0-5); ESTIMATED AVERAGE GLUCOSE 94 MG/DL (60-110); HEMOGLOBIN A1c 4.9 %; LYMPHOCYTES 35 % (16-52); MONOCYTES 3 % (0-8); NEUTROPHILS 61 % (35-75)
[2017-12-12 12:00] LABS: PLATELET ESTIMATE NORMAL (NORMAL)
[2017-12-12 12:03] LABS: ERYTHROCYTE SEDIMENTATION RATE 51 mm/hr (0-20)
[2017-12-12 12:31] LABS: ALBUMIN 2.4 GM/DL (3.2-5.2); ALBUMIN/GLOBULIN RATIO 0.71 (1.00-1.93); ALKALINE PHOSPHATASE 185 U/L (45-117); ALT/SGPT 14 U/L (12-78); ANION GAP 6 MEQ/L (8-16); AST/SGOT 32 U/L (7-37); BILIRUBIN,TOTAL 0.4 MG/DL (0.2-1.0); BLOOD UREA NITROGEN 10 MG/DL (7-18); CALCIUM LEVEL 7.7 MG/DL (8.8-10.2); CARBON DIOXIDE LEVEL 29 MEQ/L (21-32); CHLORIDE LEVEL 99 MEQ/L (98-107); CREATININE FOR GFR 0.43 MG/DL (0.70-1.30); FOLATE 23.3 NG/ML; GLOMERULAR FILTRATION RATE > 60.0 (>42); GLUCOSE, FASTING 79 MG/DL (70-100); POTASSIUM SERUM 4.3 MEQ/L (3.5-5.1); RHEUMATOID FACTOR QUANT 56.1 IU/ML (<15.0); SODIUM LEVEL 134 MEQ/L (136-145); TOTAL 25(OH) VITAMIN D 26.2 NG/ML (30.0-100.0); TOTAL PROTEIN 5.8 GM/DL (6.4-8.2)
[2017-12-14 11:26] LABS: ALBUMIN % 47.8 % (55.8-66.1); ALPHA-1-GLOBULIN % 8.4 % (2.9-4.9); ALPHA-2-GLOBULINS % 12.1 % (7.1-11.8)
[2017-12-14 11:27] LABS: ALBUMIN 2.77 GM/DL (3.29-5.55); ALPHA-1-GLOBULINS 0.49 GM/DL (0.17-0.41); BETA-1-GLOBULINS 0.41 GM/DL (0.28-0.60); BETA-1-GLOBULINS % 7.1 % (4.7-7.2); BETA-2-GLOBULINS 0.38 GM/DL (0.19-0.55); BETA-2-GLOBULINS % 6.5 % (3.2-6.5); GAMMA GLOBULIN % 18.1 % (11.1-18.8); GAMMA GLOBULINS 1.05 GM/DL (0.65-1.58)
[2017-12-19 14:27] LABS: ANTI DOUBLE STRAND-DNA AB 2 IU/mL (0-9); ANTI THROMBIN 3 ANTIGEN IMMUNO 65 % (72-124); ANTI THROMBIN 3 FUNCT ACTIVITY 81 % (75-135); ANTINUCLEAR ANTIBODIES DIRECT Negative (Negative); CARDIOLIPIN IGA ANTIBODY 17 APL U/mL (0-11); CARDIOLIPIN IGG ANTIBODY <9 GPL U/mL (0-14); CARDIOLIPIN IGM ANTIBODY 19 MPL U/mL (0-12); CERULOPLASMIN 23.8 mg/dL (16.0-31.0); COPPER PLASMA 114 ug/dL (72-166); LEAD BLOOD ADULT 3 ug/dL (0-4); Lyme Disease IgG/IgM Antibodie <0.91 ISR (0.00-0.90); Lyme Disease IgM Ab Quantitati <0.80 index (0.00-0.79); MERCURY LEVEL 1.2 ug/L (0.0-14.9); PROTEIN C FUNCTIONAL ACTIVITY 90 % (73-180); PROTEIN S FUNCTIONAL ACTIVITY 85 % (63-140); SJOGREN'S ANTI SS-A <0.2 AI (0.0-0.9); SJOGREN'S ANTI SS-B <0.2 AI (0.0-0.9); VITAMIN B1 LEVEL WHOLE BLOOD 108.3 nmol/L (66.5-200.0); VITAMIN E(ALPHA TOCOPHEROL) 8.5 mg/L (9.0-29.0); VITAMIN E(GAMMA TOCOPHEROL) 0.3 mg/L (0.5-4.9)
== END ==
LOC: M LAB 09:26
DX: R29.810 Facial weakness (principal); E11.9 Type 2 diabetes mellitus without complications; E03.9 Hypothyroidism, unspecified; Z13.88 Encounter for screening for disorder due to exposure to contaminants; T56.94XA Toxic effect of unspecified metal, undetermined, initial encounter
CPT/HCPCS: 82525

== ENCOUNTER → 2017-12-19 | Outpatient (REF) | payer MEDICARE, OTHER | LOC: M LAB REF 17:40 | DX: C24.0 Malignant neoplasm of extrahepatic bile duct (principal); C78.7 Secondary malignant neoplasm of liver and intrahepatic bile duct | CPT/HCPCS: 86301 ==

== ENCOUNTER → 2018-01-09 | Outpatient (CLI) | payer MEDICARE, OTHER ==
[~2018-01-09] MED LIST changes: +EMLA CREAM 5GM (LIDOCAINE/PRILOCAINE) As Ordered
== END ==
LOC: M RAD 10:27
DX: C22.1 Intrahepatic bile duct carcinoma (principal); K76.89 Other specified diseases of liver; Z97.8 Presence of other specified devices
CPT/HCPCS: Q9963

== ENCOUNTER → 2018-03-16 | Outpatient (REF) | payer MEDICARE, OTHER ==
[~2018-03-16] MED LIST changes: +ADV250INH INH; +ALEV220C2 PO; +ALEV220T26 PO; +AMIL5TAB4 PO; +ARTI99.0 OU; +ASPI1TAB PO; +ASPI81TA85 PO; +ATEN100T PO; +AZIL0.5T PO; +AZIL1TAB PO; +AZIL1TAB2 PO; +CARB1TAB16 PO; +CIPR-249 PO; +CIPR500T89 PO; +CLEO300C2 PO; +CO Q400C2 PO; +COMBAER6 INH; +COMBIN INH; -EMLA CREAM 5GM (LIDOCAINE/PRILOCAINE) As Ordered; +FLON1SPR; +FLUTISP; -GASTROGRAFIN SOLUTION 30ML (Q9963) As Ordered; +HYDR10TA13 PO; -ISOVUE-370 76% 100ML VIAL (Q9967) As Ordered; +LEVA750T7 PO; +LISI5TAB PO; +METF1000 PO; +METF500T13 PO; +METF500T4 PO; +METR500T10 PO; +MIRA0.12 PO; +MIRA1.5T2 PO; +MIRA1.5T4 PO; +MULT1TAB10 PO; +MULTTAB4 PO; +NYST50SS SS; +OMEP20CA3 PO; +OMEP40CA2 PO; +POTA20EL PO; +RASA1TAB PO; +REST0.05 OU; +SENO8.6T9 PO; +SIMV10TA2 PO; +SINE25TA PO; +SINE25TA5 PO; +TORS10TA3 PO; +TORS20TA2 PO; +TYLE325T5 PO; +ZOCO10TA PO; +ZOFR8TAB24 PO
== END ==
LOC: M SFHCADAM 10:43
PROVIDERS: ATTEND Family Medicine
DX: E11.9 Type 2 diabetes mellitus without complications (principal)

== ENCOUNTER → 2018-04-09 | Outpatient (REF) | payer MEDICARE, OTHER ==
[2018-04-09 13:43] LABS: HEMATOCRIT 31.7 % (42.0-52.0); HEMOGLOBIN 9.8 g/dl (13.5-17.5); MEAN CORPUSCULAR HEMOGLOBIN 29.3 pg (27.0-33.0); MEAN CORPUSCULAR HGB CONC 30.9 g/dl (32.0-36.5); MEAN CORPUSCULAR VOLUME 94.6 fl (80.0-96.0); PLATELET COUNT, AUTOMATED 263 10^3/uL (150-450); RED BLOOD COUNT 3.35 10^6/uL (4.30-6.10); WHITE BLOOD COUNT 4.9 10^3/uL (4.0-10.0)
[2018-04-09 14:05] LABS: ALBUMIN 2.5 GM/DL (3.2-5.2); ALT/SGPT 16 U/L (12-78); BILIRUBIN,TOTAL 2.9 MG/DL (0.2-1.0); BLOOD UREA NITROGEN 10 MG/DL (7-18); CALCIUM LEVEL 8.2 MG/DL (8.8-10.2); CARBON DIOXIDE LEVEL 28 MEQ/L (21-32); CHLORIDE LEVEL 106 MEQ/L (98-107); CREATININE FOR GFR 0.42 MG/DL (0.70-1.30); GLOMERULAR FILTRATION RATE > 60.0 (>42); GLUCOSE, FASTING 77 MG/DL (70-100); POTASSIUM SERUM 4.1 MEQ/L (3.5-5.1); SODIUM LEVEL 141 MEQ/L (136-145); TOTAL PROTEIN 5.7 GM/DL (6.4-8.2)
[2018-04-10 14:50] LABS: CA19-9 TUMOR MARKER,CARBOHYDRA 424.6 U/ML (<35.0)
== END ==
LOC: M SFHCADAM 11:41
PROVIDERS: ATTEND Family Medicine
DX: C22.1 Intrahepatic bile duct carcinoma (principal); R17 Unspecified jaundice
CPT/HCPCS: 80053; 85027; 86301; G0463

== ENCOUNTER → 2018-04-30 | Outpatient (CLI) | payer MEDICARE, OTHER ==
[~2018-04-30] MED LIST changes: +EMLA CREAM 5GM (LIDOCAINE/PRILOCAINE) As Ordered ONE; +GASTROGRAFIN SOLUTION 30ML (Q9963) As Ordered ONE; +ISOVUE-370 76% 100ML VIAL (Q9967) As Ordered ONE
--- NOTE | 2018-04-30 18:50 | REP ---
CT chest with IV contrast: History: Cholangiocarcinoma. Restaging. Comparison chest CT study is from January 09, 2018. CT contrast dose: 100 mL of intravenous Isovue 370. CT findings: Preliminary digital forge helper radiograph demonstrates evidence of left pleural fluid. Axial CT images confirm the presence of a small left pleural effusion essentially unchanged from the comparison CT study January 09, 2018. Post thoracotomy clips are noted on the left. The spiculated area in the posterior aspect of the left upper lobe appears smaller today, previously 17 mm, today 11 mm. Emphysematous changes are again noted likely on the right upper lobe. There is some linear fibrosis in the left base and right base which are essentially unchanged. No new pulmonary mass lesion is observed. There is a small nodular density 3 mm in diameter in the anterior aspect of the left upper lobe which appears a little less prominent than on the prior study as well. No mediastinal adenopathy is appreciated. There is a subcarinal lymph node which is unchanged in size, 11 mm in short axis dimension. There are stable anterior mediastinal lymph nodes which are normal in size. A left-sided Nezgkx-B-Ycgf catheter is noted. Bone window settings show no definite bony destructive lesion. There are degenerative disc changes in the thoracic spine as before. Vascular calcifications noted. Impression: Stable small left pleural effusion. The previously noted spiculated density in the left upper lung field and a small 3 mm density anteriorly in the left lung are somewhat improved. No new pulmonary parenchymal lesion is seen. Stable mediastinal lymph nodes. Electronically Signed by Emir Calero MD 05/01/2018 08:08 A
--- NOTE | 2018-04-30 19:13 | REP ---
CT abdomen and pelvis with IV and oral contrast: History: Advance cholangiocarcinoma. Restaging. Comparison CT study is from January 09, 2018. CT contrast dose: 100 mL of intravenous Isovue [address] findings: There is an internal external biliary drainage catheter in place coursing through the liver and to the common bile duct and duodenum as noted previously. Intrahepatic bile ducts are unchanged. There is a cyst in the left lobe of the liver unchanged measuring 1.1 cm in diameter. Mild pneumobilia is seen. No new liver mass lesion is observed. There are pleuroparenchymal changes at the bases including a left pleural effusion and a tiny right pleural effusion. No adrenal lesion is seen. There are surgical clips in the gallbladder bed and upper abdomen. No pancreatic cyst or mass lesion is observed. The spleen is unremarkable. There is no evidence of upper abdominal ascites. Moderate stool is seen throughout the colon. Prominent vascular calcification is noted. Prostate calcifications are noted. Urinary bladder is unremarkable. No abdominal wall defect is seen. No pelvic or abdominal adenopathy or mass lesion is observed. Impression: Postoperative changes in the upper abdomen. Internal external biliary drainage catheter remains in place. There are small bilateral renal cysts. Small bilateral pleural effusions are noted. Moderate stool throughout the colon. No evidence to suggest intra-abdominal progression or metastasis. Electronically Signed by Emir Calero MD 05/01/2018 08:08 A
== END ==
LOC: M RAD 11:14
PROVIDERS: ATTEND Nurse Practitioner Family
DX: C22.1 Intrahepatic bile duct carcinoma (principal)
CPT/HCPCS: 71260; 74177; Q9963; Q9967

== ENCOUNTER → 2018-05-02 | Outpatient (REF) | payer MEDICARE, OTHER ==
[~2018-05-02] MED LIST changes: -EMLA CREAM 5GM (LIDOCAINE/PRILOCAINE) As Ordered ONE; -GASTROGRAFIN SOLUTION 30ML (Q9963) As Ordered ONE; -ISOVUE-370 76% 100ML VIAL (Q9967) As Ordered ONE
[2018-05-02 13:47] LABS: HEMOGLOBIN A1c 5.4 %
== END ==
LOC: M LABDRAW1 12:42 → M SFHCADAM 12:42
PROVIDERS: ATTEND Family Medicine
DX: E11.9 Type 2 diabetes mellitus without complications (principal)

== ENCOUNTER → 2018-07-03 | Outpatient (REF) | payer MEDICARE, OTHER ==
[~2018-07-03] MED LIST changes: -ASPI1TAB PO; +ASPI81TA26 PO; +FLUT1SPR2; -FLUTISP; +PROAAER10 INH
[2018-07-03 14:18] LABS: FREE T4 1.19 NG/DL (0.76-1.46); THYROID STIMULATING HORMONE 1.45 uIU/ML (0.358-3.740)
== END ==
LOC: M SFHCADAM 13:03
PROVIDERS: ATTEND Family Medicine
DX: R63.4 Abnormal weight loss (principal)

== ENCOUNTER → 2018-07-24 | Outpatient (CLI) | payer MEDICARE, OTHER ==
[~2018-07-24] MED LIST changes: +EMLA CREAM 5GM (LIDOCAINE/PRILOCAINE) As Ordered ONE; +GASTROGRAFIN SOLUTION 30ML (Q9963) As Ordered ONE; +ISOVUE-370 76% 100ML VIAL (Q9967) As Ordered ONE
--- NOTE | 2018-07-24 16:10 | REP ---
CT OF THE CHEST: HISTORY: Cholangiocarcinoma. COMPARISON: Priors 04/30/2018 with other older priors as well reviewed. CONTRAST: 100 mL Isovue-370 There is a left pleural effusion which is completely unchanged from 04/30/2018. No mediastinal or hilar adenopathy has developed. There is no pericardial effusion. The imaged osseous structures are unchanged. Evaluation of the lung ponce show heavy emphysematous changes with biapical pleural parenchymal scarring and scattered asymmetric densities. The irregular nodule in the left upper lobe is unchanged and the irregular pleural based density in the right upper lobe is unchanged. Heavy left lower lobe bandlike densities are all stable. There is a new irregular nodular density in the left upper lobe which measures 1.5 cm and appears somewhat spiculated. IMPRESSION: 1. New somewhat spiculated nodular density left upper lobe measuring 1.5 cm. A metastatic focus is certainly of concern. According to the revised [place] Society criteria recommendation for followup of this abnormality is immediate with PET/CT and/or tissue sampling as the lesion represents a category 4D lesion, possibly even a 4X lesion. 2. Other findings and chronic changes as described above. Electronically Signed by Abdoul Carmona DO 07/24/2018 04:36 P
--- NOTE | 2018-07-24 16:15 | REP ---
REASON: History of cholangioma carcinoma. COMPARISON EXAMINATION: 04/30/2018 CONTRAST: 100 mL [id number]. The biliary drainage tube is unchanged. There is pneumobilia which has increased from the prior exam. The spleen pancreas, adrenal glands and kidneys are unchanged. The abdominal aorta and paraaortic regions are unchanged. The bowel loops and their mesenteries are within normal limits. There is mild gaseous distension of the stomach. There is no free fluid. The abdominal aorta and paraaortic regions are unchanged. Mild abdominal aortic ectasia with atherosclerotic change is noted status quo. The pelvic bowel loops and their mesenteries are unchanged. There is no free fluid or free air. There is no mass or adenopathy. Bone window technique throughout the examination shows no significant change in appearance of the osseous structures. There are chronic changes status quo. IMPRESSION:The only interim development has been pneumobilia which has increased from the prior exam. Other findings are stable. Electronically Signed by Abdoul Carmona DO 07/24/2018 04:36 P
== END ==
LOC: M RAD 11:48
PROVIDERS: ATTEND Internal Medicine Medical Oncology
DX: C22.1 Intrahepatic bile duct carcinoma (principal); R91.8 Other nonspecific abnormal finding of lung field
CPT/HCPCS: 71260; 74177; Q9963; Q9967

== ENCOUNTER → 2018-08-08 | Outpatient (CLI) | payer MEDICARE, OTHER ==
[~2018-08-08] MED LIST changes: -EMLA CREAM 5GM (LIDOCAINE/PRILOCAINE) As Ordered ONE; -GASTROGRAFIN SOLUTION 30ML (Q9963) As Ordered ONE; -ISOVUE-370 76% 100ML VIAL (Q9967) As Ordered ONE; +MULTCAP PO
--- NOTE | 2018-08-08 19:00 | REP ---
PET/CT: History: New left lung nodule. The patient has a history of cholangiocarcinoma. He is status post left lower lobectomy. Recent CT study showed a 1.5 cm spiculated neodensity in the superior portion of the remaining left upper lobe. Comparisons: Comparison chest CT study July 24, 2018. TECHNIQUE: 47 minutes following the intravenous injection of a 8.41 mCi dose of F-18 FDG, three-dimensional PET scintigraphy is acquired from the skull base to the proximal thighs. Triplanar noncontrast CT scanning is acquired through the same anatomic range for attenuation correction, and image registration with scan parameters optimized to minimize radiation exposure to the patient. PET scintigraphy and CT datasets were fused and displayed on a workstation with multiplanar and projection display capability. PET/CT Findings: The recently noted spiculated left upper lobe pulmonary nodule is no longer visible. There is no abnormal hypermetabolic uptake in the chest on either side. There is a small left pleural effusion which is a little larger than on the April 2018 study, but unchanged from the most recent CT study of June 2018. No pleural-based hypermetabolic uptake is seen. No abnormal bertha uptake is seen in the chest. Head and neck soft tissues are unremarkable. In the abdomen and pelvis, there is some hypermetabolic uptake surrounding the biliary stent in the region of allison. Maximum standard uptake value here is 5.1. This may be attributable to cholangiocarcinoma. No other abnormal abdominal or pelvic hypermetabolic uptake is seen. Impression: No abnormal thoracic hypermetabolic uptake. The spiculated 1.5 cm new nodule previously identified is not apparent today. There is a left pleural effusion without hypermetabolic uptake. There is some hypermetabolic uptake surrounding the internal external biliary stent in the periportal region. Otherwise negative. Electronically Signed by Emir Calero MD 08/08/2018 07:10 P
== END ==
LOC: M PLARAD 13:16
PROVIDERS: ATTEND Internal Medicine Medical Oncology
DX: C34.92 Malignant neoplasm of unspecified part of left bronchus or lung (principal); C22.1 Intrahepatic bile duct carcinoma; J90 Pleural effusion, not elsewhere classified
CPT/HCPCS: 78815; A9552

== ENCOUNTER → 2018-09-10 | Outpatient (CLI) | payer MEDICARE, OTHER ==
--- NOTE | 2018-09-10 10:11 | REP ---
CT of the chest without IV contrast: Comparisons are 07/24/2018 and 01/09/2018. 07/24/2017 there was a new spiculated left lung density that measured up to 15 mm in diameter. This density is no longer present on the current study. However, there is a new spiculated density subpleural in the left lung today on image 64 measuring up to 13 mm as a new finding from both prior studies. There is a spiculated nodular density posteriorly in the left upper lobe on image 36 measuring 15 mm. This measured 17 mm on 01/09/2018. There are stable densities in the right upper lobe, some of which are pleural-based, unchanged from 01/09/2018. Numerous bulla are noted throughout the lung ponce bilaterally, unchanged. The left pleural effusion has slightly decreased in size and again has a somewhat lobulated appearance. There is mild pleural thickening posteriorly in the left lung with a slightly lobulated appearance. This is also unchanged. In the upper abdomen there is a percutaneous biliary drainage tube. There is no adrenal mass. The Impression: The spiculated left lung density identified on 07/24/2017 is no longer present. However, there is a new spiculated left lung density on image 64 measuring up to 13 mm. Bilateral pleural effusion/pleural thickening as described. Bilateral stable densities as described. No adrenal mass. The Percutaneous biliary drainage tube, unchanged. Electronically Signed by Mike Jenkins MD 09/10/2018 10:03 A
== END ==
LOC: M RAD 08:03
PROVIDERS: ATTEND Internal Medicine Pulmonary Disease
DX: R91.1 Solitary pulmonary nodule (principal); J91.8 Pleural effusion in other conditions classified elsewhere; J94.8 Other specified pleural conditions; Z96.89 Presence of other specified functional implants

== ENCOUNTER → 2018-10-09 | Outpatient (POV) | payer MEDICARE, OTHER ==
[~2018-10-09] VITALS: Ht 177.8 cm; Wt 66.2 kg
[~2018-10-09] MED LIST changes: -OMEP20CA3 PO; +OMEP20CA4 PO
[2018-10-09 10:45] VITALS: BP 158/74
--- NOTE | 2018-10-09 14:44 | CR.PDOC ---
General Date of Consultation: Oct 09, 2018 Consultation REASON FOR CONSULTATION/CHIEF COMPLAINT: Biliary obstruction. Cholangiocarcinoma HISTORY OF PRESENT ILLNESS: 77 male with unresectable cholangiocarcinoma s/p exploration in 2017. Maintained on Gemcitabine. Right biliary drain in place since 2017. Never been catheter free. Prior history of biliary stenting. Denies pruritus, fevers or chills. Flushes catheter 3 times a day. ALLERGIES: Please see below. HOME MEDICATIONS: Please see below. PAST MEDICAL HISTORY: cholangiocarcinoma PAST SURGICAL HISTORY: FAMILY HISTORY: SOCIAL HISTORY: Lives with . 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 Very active and independent with all activities of daily living. Previously was travelling to [place] for routine biliary exchanges. REVIEW OF SYSTEMS: otherwise negative PHYSICAL EXAMINATION: VITAL SIGNS: Please see below. GENERAL APPEARANCE: comfortable at rest HEENT: no scleral icterus RESPIRATORY: normal breathing at rest CARDIOVASCULAR: normal rate ABDOMEN: non distended EXTREMITIES: moving all 4 extremities. NEUROLOGICAL: alert and oriented PSYCHIATRIC: appropriate to circumstance LABORATORY DATA: Please see below. ASSESSMENT/PLAN: 77 male with cholangiocarcinoma and biliary obstruction s/p prior metal stenting and biliary drain placement. Never been catheter free. Plan for over the wire cholangiogram and biliary catheter exchange under moderate sedation. We will schedule the first exchange for early November and every 12 weeks thereafter. Thank you for this referral. Vital Signs/I&O Vital Signs Date Time Temp Pulse Resp B/P (MAP) Pulse Ox O2 Delivery O2 Flow Rate FiO2 10/09/18 10:45 97.7 79 18 158/74 (102) 95 Allergies Coded Allergies: amoxicillin (Verified Allergy, Unknown, 06/20/18) Penicillins (Verified Adverse Reaction, Mild, Mouth Soreness, 06/20/18) Home Medications Scheduled Amiloride HCl (Amiloride HCl) 5 Mg Tab, 5 MG PO DAILY, (Reported) Aspirin (Aspir 81) 81 Mg Tab, 81 MG PO DAILY, #90 Carbidopa (Carbidopa) 25 Mg Tab, 50-200 MG PO QHS, (Reported) Carbidopa/Levodopa (Sinemet 25-100 mg Tablet) 1 Tab Tab, 1.5 TAB PO QID, (Reported) Fluticasone Propionate (Flonase Allergy Relief) 50 Mcg/Act Spr, 2 SPRAYS NA DAILY, (Reported) Multivitamin (Multivitamins) 1 Each Capsule, 1 CAP PO DAILY for 30 Days, #30 (Reported) Omeprazole (Omeprazole) 20 Mg Cap, 40 MG PO BID, (Reported) Potassium Chloride (Potassium Chloride) 10 % Mellisa, 15 ML PO BID, (Reported) Pramipexole Di-HCl (Mirapex) 1.5 Mg Tab, 1.5 MG PO TID, (Reported) Rasagiline Mesylate (Rasagiline Mesylate) 1 Mg Tab, 1 MG PO DAILY, (Reported) Salmeterol/Fluticasone (Advair 250-50 Diskus) 14 Puff/Inhaler Aerp, 1 PUFF INH BID, (Reported) Torsemide (Torsemide) 20 Mg Tab, 40 MG PO BIDP, (Reported) Scheduled PRN Albuterol Sulfate (Proair Hfa) 108 Mcg/Act Aer, 2 PUFFS INH PRN PRN for SHORTNESS OF BREATH, (Reported) Polyvinyl Alcohol (Artificial Tears) 1.4 % Mellisa, 1 DROP OU QID PRN for DRY EYES, (Reported) TYRONE PATTERSON MD Oct 09, 2018 14:44
== END ==
LOC: M IRPOV 10:34
PROVIDERS: ATTEND Radiology Diagnostic Radiology
DX: C22.1 Intrahepatic bile duct carcinoma (principal); K83.1 Obstruction of bile duct

== ENCOUNTER → 2018-11-21 | Outpatient (CLI) | payer MEDICARE, OTHER ==
[~2018-11-21] MED LIST changes: +ALPR0.5T3 PO; +ALPR2TAB3 PO; -ARTI99.0 OU; +ARTIDRO2 OU
--- NOTE | 2018-11-21 12:08 | REP ---
CT of the chest without IV contrast: Comparisons are 09/10/2018 and 07/24/1927 teen. There are bulla throughout the lung ponce bilaterally. There is parenchymal scarring in the right apex, unchanged. There is a left pleural effusion, unchanged. There is no mediastinal or axillary lymph node enlargement . This is unchanged. There are ground-glass irregular nodule like densities as follows: The left upper lobe posteriorly, 15 mm, unchanged. Right upper lobe, image 34, unchanged. Left lung, image 57, 23 mm. This measured 15 mm on 07/24/2018. It had resolved and was not present on 09/10/2018 and has recurred on the current study. On 09/10/2018 there was a new 13 mm lesion peripherally in the left lung on image 64. This has resolved and is no longer present on the current study. The on the current study there is a new left lung pleural-based irregular nodular density measuring 11 mm on image 68. The thoracic aorta is unremarkable. Cardiac size is normal. The visualized upper abdomen there is a percutaneous biliary stent. This is unchanged. No the the there is no adrenal mass. The the unenhanced pancreas and spleen are unremarkable. Impression: There are irregular lung nodules as described. Most of these nodules are stable and unchanged. There is a new left lung irregular nodule. There is also a left lung nodule that was present on 07/24/2018, had resolved on 09/10/2018 and has recurred today. The left pleural effusion is unchanged. The chronic bullous replacement of the lung parenchyma and the parenchymal scar in the apex of the right lung are unchanged. Electronically Signed by Mike Jenkins MD 11/21/2018 09:26 A
== END ==
LOC: M RAD 07:07
PROVIDERS: ATTEND Internal Medicine Pulmonary Disease
DX: R91.8 Other nonspecific abnormal finding of lung field (principal)

== ENCOUNTER → 2018-11-28 | Outpatient (CLI) | payer MEDICARE, OTHER ==
[~2018-11-28] MED LIST changes: +HEPARIN 1,000 UNITS/ML 10ML VIAL (FOR RADIOLOGY& DIALYSIS ONLY) As Ordered ONE; +ISOVUE-300 61% 50ML VIAL (Q9967) As Ordered ONE; +LIDOCAINE 1% MDV 20ML VIAL As Ordered ONE; +MIDAZOLAM INJ 2 MG/2 ML VIAL (J2250) As Ordered ONE; +cefTRIAXone SOD 1 GM VIAL (J0696) As Ordered ONE; +diphenhydrAMINE INJ 50MG/ML VIAL (J1200) As Ordered ONE; +fentaNYL 100 MCG/2 ML INJECTION (J3010) As Ordered ONE
--- NOTE | 2018-11-28 14:38 | IRMSE ---
[facility] IR Moderate Sedation Eval. Date and Time Date: Nov 28, 2018 Time: 14:38 ASA Classification ASA Classification: III-Severe systemic dis. Mallampati Score: I NPO: Yes Obstructive Sleep Apnea: No Interval Plan: moderate sedation TYRONE PATTERSON MD Nov 28, 2018 14:38
[2018-11-28 16:50] VITALS: BP 137/70
--- NOTE | 2018-11-28 16:55 | POST-OPPD ---
Postoperative Procedure Note Date Of Procedure: Nov 28, 2018 Time Of Procedure: 16:53 PREOPERATIVE DIAGNOSIS: biliary obstruction POSTOPERATIVE DIAGNOSIS: biliary obstruction FINDINGS: biliary obstruction PROCEDURE: cholangiogram, angioplasty and biliary drain exchange SURGEON: victoria ANESTHESIA: moderate sedation ESTIMATED BLOOD LOSS: < 5 ml COMPLICATIONS: none. POSTOPERATIVE CONDITION: stable. TYRONE PATTERSON MD Nov 28, 2018 16:54
--- NOTE | 2018-11-28 17:25 | REP ---
IR Biliary catheter exchange. IR over the wire cholangiogram. IR common hepatic and common bile duct (in stent) angioplasty. IR moderate sedation. Clinical information: Biliary obstruction. Cholangiocarcinoma. Previously stented but requiring mcc biliary drain. Procedure: The patient was advised of the benefits, risks and alternatives of the procedure and informed consent was obtained. The time-out was performed with verification of the patient's name, MRN, site of procedure and type of procedure to be performed. The patient was positioned in the supine position on the angiographic table. The site was prepped and draped in the usual sterile fashion. Moderate sedation was performed by the physician including the presence of an independent trained observer who assisted in monitoring the patient's level of consciousness and physiologic status. Following the administration of Fentanyl and Versed, the physician spent 60 minutes of continuous face to face time with the patient. A spouter radiograph reveals an internal external biliary drainage catheter in expected location. The soft tissues surrounding the catheter insertion site were anesthetized with lidocaine. The sutures securing the catheter was cut. A cholangiogram through the preexisting catheter demonstrates patent catheter. An Amplatz wire was advanced through the catheter into the small bowel. The catheter was exchanged over the wire for a 5-Gibraltarian 45 cm sheath. Over the wire cholangiography was performed demonstrating dilated intrahepatic bile ducts and long segment intra stent stenosis. A 7 x 100 mm angioplasty balloon was passed over the wire under fluoroscopy guidance and positioned within the biliary stent. Prolonged angioplasty was performed under fluoroscopy guidance. The angioplasty balloon was removed over the wire and the sheath was re-advanced into the distal common bile duct. A repeat over the wire cholangiogram was performed which demonstrates improved flow through the stent. Some stenosis remains. A new 12-Gibraltarian internal external biliary drainage catheter was advanced over the wire under fluoroscopy guidance and positioned with the pigtail in the duodenum. Repeat cholangiogram confirms appropriate location of the distal pigtails and side holes communicating with the intrahepatic bile ducts. The catheter was secured to the skin with 2-0 Prolene. A sterile dressing was applied. The catheter was capped. The patient tolerated the procedure well and was returned to the PRU in stable condition. EBL: Less than 5 ml. Complications: None. Conclusion: 1. Percutaneous transhepatic over the wire cholangiogram demonstrates dilated intrahepatic ducts and in-stent stenosis of the biliary system. 2. Successful angioplasty through the common bile duct stent with improved flow. 3. Successful exchange of 12-Gibraltarian internal external biliary drainage catheter. Routine catheter exchange in 10 to 12 weeks. Thank you this referral. Electronically Signed by Liss Torres MD 11/28/2018 05:24 P
== END ==
LOC: M IRPRO 12:27
PROVIDERS: ATTEND Radiology Diagnostic Radiology
DX: C22.1 Intrahepatic bile duct carcinoma (principal); K83.1 Obstruction of bile duct; Z46.82 Encounter for fitting and adjustment of non-vascular catheter
CPT/HCPCS: 47536; 47542; 99152; 99153; C1725; C1729; C1769; C1894; J0696; J1200; J2250; J3010; Q9967

== ENCOUNTER → 2018-12-25 | Outpatient (POV) | payer MEDICARE, OTHER ==
[~2018-12-25] VITALS: Ht 177.8 cm; Wt 62.7 kg
[~2018-12-25] MED LIST changes: -HEPARIN 1,000 UNITS/ML 10ML VIAL (FOR RADIOLOGY& DIALYSIS ONLY) As Ordered ONE; -ISOVUE-300 61% 50ML VIAL (Q9967) As Ordered ONE; +KEFL500C17 PO; -LIDOCAINE 1% MDV 20ML VIAL As Ordered ONE; +METF-791 PO; -METF500T4 PO; -MIDAZOLAM INJ 2 MG/2 ML VIAL (J2250) As Ordered ONE; -cefTRIAXone SOD 1 GM VIAL (J0696) As Ordered ONE; -diphenhydrAMINE INJ 50MG/ML VIAL (J1200) As Ordered ONE; -fentaNYL 100 MCG/2 ML INJECTION (J3010) As Ordered ONE
[2018-12-25 08:40] VITALS: BP 159/72
--- NOTE | 2018-12-26 07:56 | IRCOV ---
[facility] IR Consult Office Visit IR Consult Office Visit DATE: Dec 25, 2018 REASON FOR CONSULTATION/CHIEF COMPLAINT: Redness over her left chest wall port. HISTORY OF PRESENT ILLNESS: 78 male with unresectable cholangiocarcinoma and left chest wall port, placed couple of years ago, presents with a couple weeks of mild redness of the skin over the left port site. No pain or tenderness. No discharge. No pruritus. No fevers or chills. Port is otherwise working well for infusion. ALLERGIES: Please see below. HOME MEDICATIONS: Please see below. PAST MEDICAL HISTORY: 1. Cholangiocarcinoma PAST SURGICAL HISTORY: 1. Tonsillectomy 2. Exploratory laparotomy, aborted Whipple procedure. Palliative gastrojejunost drea. Left subclavian [id number] 2017. Knee surgery FAMILY HISTORY: Nonsignificant. SOCIAL HISTORY: Nonsmoker. No alcohol no drugs. REVIEW OF SYSTEMS: Otherwise negative. PHYSICAL EXAMINATION: VITAL SIGNS: Please see below. GENERAL APPEARANCE: Appears well. Comfortable at rest. HEENT: No scleral icterus. RESPIRATORY: Symmetric breath sounds. CARDIOVASCULAR: Normal rate. Left chest wall port site; no open wound. No discharge. Nontender. Skin normal in temperature. No fluctuance or edema. ABDOMEN: Soft nontender nondistended. Right biliary catheter in expected location. EXTREMITIES: Moving all 4 extremities. NEUROLOGICAL: Alert and oriented. PSYCHIATRIC: Appropriate to circumstance. LABORATORY DATA: 12/25/2018 hemoglobin 9.4 hematocrit 30.4 WBC 4.9 platelets 363. Imaging: I personally reviewed the chest CT from October 2018. There is a left chest wall port, tip is at the cavoatrial junction. ASSESSMENT/PLAN: 78 male with unresectable cholangiocarcinoma and left chest wall port which is in an working well for 2 years. No signs of systemic infection. There appears to be a focal cellulitis. My recommendation is short course of antibiotics and follow-up in clinic in 2 weeks. I spent 30 minutes in consultation with the patient. Thank you for this referral. Allergies Coded Allergies: amoxicillin (Verified Allergy, Unknown, 06/20/18) Penicillins (Verified Adverse Reaction, Mild, Mouth Soreness, 06/20/18) Home Medications Scheduled Alprazolam (Alprazolam), 0.5 MG PO DAILY, (Reported) Amiloride HCl (Amiloride HCl), 5 MG PO DAILY, (Reported) Aspirin (Aspir 81), 81 MG PO DAILY Carbidopa (Carbidopa), 50-200 MG PO QHS, (Reported) Carbidopa/Levodopa (Sinemet 25-100 mg Tablet), 1.5 TAB PO QID, (Reported) Fluticasone Propionate (Flonase Allergy Relief), 2 SPRAYS NA DAILY, (Reported) Multivitamin (Multivitamins), 1 CAP PO DAILY, (Reported) Omeprazole (Omeprazole), 40 MG PO BID, (Reported) Potassium Chloride (Potassium Chloride), 15 ML PO BID, (Reported) Pramipexole Di-HCl (Mirapex), 1.5 MG PO TID, (Reported) Rasagiline Mesylate (Rasagiline Mesylate), 1 MG PO DAILY, (Reported) Salmeterol/Fluticasone (Advair 250-50 Diskus), 1 PUFF INH BID, (Reported) Torsemide (Torsemide), 40 MG PO BIDP, (Reported) Scheduled PRN Albuterol Sulfate (Proair Hfa), 2 PUFFS INH PRN PRN for SHORTNESS OF BREATH, (Reported) Alprazolam (Alprazolam), 1 TAB PO BIDP PRN for anxiety, (Reported) Polyvinyl Alcohol (Artificial Tears), 1 DROP OU QID PRN for DRY EYES, (Reported) VS, I&O, 24H, Fishbone Vital Signs/I&O Vital Signs Date Time Temp Pulse Resp B/P (MAP) Pulse Ox O2 Delivery O2 Flow Rate FiO2 12/25/18 08:40 97.8 86 18 159/72 (101) 91 TYRONE PATTERSON MD Dec 26, 2018 07:56
== END ==
LOC: M IRPOV 08:37
PROVIDERS: ATTEND Radiology Diagnostic Radiology
DX: Z45.2 Encounter for adjustment and management of vascular access device (principal); C22.1 Intrahepatic bile duct carcinoma

== ENCOUNTER → 2019-01-08 | Outpatient (POV) | payer MEDICARE, OTHER ==
[~2019-01-08] VITALS: Ht 177.8 cm; Wt 62.7 kg
[2019-01-08 09:00] VITALS: BP 108/50
--- NOTE | 2019-01-08 09:48 | IRPN ---
[facility] IR Progress Note IR Progress Note DATE: Jan 08, 2019 FOLLOW-UP: Follow-up for skin changes over left chest wall port which was placed many years ago. Port functioning well. No fevers or chills. He was treated with Keflex. ON EXAMINATION: Left chest wall port site appears the same. Chronic reddish skin changes. No tenderness. No warmth or fluctuance. No skin breakdown. There is central dimple which is posttraumatic from the same insertion site. No skin necrosis. IMPRESSION: Long-term left chest wall port with some chronic skin changes. No signs of skin breakdown or active infection. Port is working well; no intervention required at present. Recommend accessing the poor in different areas instead of on the same central spot. Thank you for this referral Allergies Coded Allergies: amoxicillin (Verified Allergy, Unknown, 06/20/18) Penicillins (Verified Adverse Reaction, Mild, Mouth Soreness, 06/20/18) VS,Fishbone, I+O VS, Fishbone, I+O Vital Signs Date Time Temp Pulse Resp B/P (MAP) Pulse Ox O2 Delivery O2 Flow Rate FiO2 01/08/19 09:00 97.1 76 18 108/50 (69) 92 TYRONE PATTERSON MD Jan 08, 2019 09:47
== END ==
LOC: M IRPOV 08:47
PROVIDERS: ATTEND Radiology Diagnostic Radiology
DX: Z45.2 Encounter for adjustment and management of vascular access device (principal); R23.8 Other skin changes

== ENCOUNTER → 2019-01-23 | Outpatient (CLI) | payer MEDICARE, OTHER ==
[~2019-01-23] MED LIST changes: +ISOVUE-300 61% 50ML VIAL (Q9967) As Ordered ONE; +LIDOCAINE 1% MDV 20ML VIAL As Ordered ONE; +MIDAZOLAM INJ 2 MG/2 ML VIAL (J2250) As Ordered ONE; -OMEP40CA2 PO; +OMEP40CA97 PO; +cefTRIAXone SOD 1 GM VIAL (J0696) As Ordered ONE; +diphenhydrAMINE INJ 50MG/ML VIAL (J1200) As Ordered ONE; +fentaNYL 100 MCG/2 ML INJECTION (J3010) As Ordered ONE
--- NOTE | 2019-01-23 13:25 | IRHP ---
[facility] IR Pre-Procedure H & P General Date of Service: Jan 23, 2019 Procedure: Same Day Surgery Interval History and Physical I have seen the patient and reviewed last H & P performed within 30 days. There is no significant interval change. History of Present Illness Chief Complaint The patient is a 78-year-old male admitted with a reason for visit of Biliary Obstruction, Cholangiocarcinoma. PRE-PROCEDURE DIAGNOSIS: biliary obstruction HEART: normal rate. LUNGS: normal breathing at rest. ASA Classification ASA Classification: III-Severe systemic dis. Mallampati Score: I NPO: Yes Problems with prior sedation: No Obstructive Sleep Apnea: No Plan moderate sedation Allergies Coded Allergies: amoxicillin (Verified Allergy, Unknown, 06/20/18) Penicillins (Verified Adverse Reaction, Mild, Mouth Soreness, 06/20/18) Home Medications Scheduled Alprazolam (Alprazolam), 0.5 MG PO DAILY, (Reported) Amiloride HCl (Amiloride HCl), 5 MG PO DAILY, (Reported) Aspirin (Aspir 81), 81 MG PO DAILY Carbidopa (Carbidopa), 50-200 MG PO QHS, (Reported) Carbidopa/Levodopa (Sinemet 25-100 mg Tablet), 1.5 TAB PO QID, (Reported) Cephalexin (Keflex), 500 MG PO BID Fluticasone Propionate (Flonase Allergy Relief), 2 SPRAYS NA DAILY, (Reported) Multivitamin (Multivitamins), 1 CAP PO DAILY, (Reported) Omeprazole (Omeprazole), 40 MG PO BID, (Reported) Potassium Chloride (Potassium Chloride), 15 ML PO BID, (Reported) Pramipexole Di-HCl (Mirapex), 1.5 MG PO TID, (Reported) Rasagiline Mesylate (Rasagiline Mesylate), 1 MG PO DAILY, (Reported) Salmeterol/Fluticasone (Advair 250-50 Diskus), 1 PUFF INH BID, (Reported) Torsemide (Torsemide), 40 MG PO BIDP, (Reported) Scheduled PRN Albuterol Sulfate (Proair Hfa), 2 PUFFS INH PRN PRN for SHORTNESS OF BREATH, (Reported) Alprazolam (Alprazolam), 1 TAB PO BIDP PRN for anxiety, (Reported) Polyvinyl Alcohol (Artificial Tears), 1 DROP OU QID PRN for DRY EYES, (Reported) VS, I&O, 24H, Fishbone Vital Signs/I&O Vital Signs Date Time Temp Pulse Resp B/P (MAP) Pulse Ox O2 Delivery O2 Flow Rate FiO2 01/23/19 13:19 71 18 99 Nasal Cannula 2 01/23/19 11:56 98.0 TYRONE PATTERSON MD Jan 23, 2019 13:25
[2019-01-23 15:30] VITALS: BP 127/58
--- NOTE | 2019-01-24 07:34 | REP ---
IR Biliary catheter exchange. IR cholangiogram. IR moderate sedation. Clinical information: Cholangiocarcinoma. Biliary obstruction. Biliary drain dependent. Procedure: The patient was advised of the benefits, risks and alternatives of the procedure and informed consent was obtained. The time-out was performed with verification of the patient's name, MRN, site of procedure and type of procedure to be performed. The patient was positioned in the supine position on the angiographic table. The site was prepped and draped in the usual sterile fashion. Moderate sedation was performed by the physician including the presence of an independent trained observer who assisted in monitoring the patient's level of consciousness and physiologic status. Following the administration of fentanyl and Versed , the physician spent 45 minutes of continuous face to face time with the patient. A director of scout work radiograph reveals an internal external biliary drainage catheter in expected location. The soft tissues surrounding the catheter insertion site were anesthetized with lidocaine. The sutures securing the catheter was cut. A cholangiogram through the preexisting catheter demonstrates patent catheter. An Amplatz wire was advanced through the catheter into the small bowel. The catheter was exchanged over the wire for a 12-Uzbek internal external biliary drainage catheter. This was advanced over the wire under fluoroscopy guidance and positioned with the pigtail in the duodenum. Repeat cholangiogram confirms appropriate location of the distal pigtails and side holes communicating with the intrahepatic bile ducts. The right hepatic ducts are decompressed. There is left hepatic duct dilation. The catheter was secured to the skin with 2-0 Prolene. A sterile dressing was applied. The catheter was capped. The patient tolerated the procedure well and was returned to the PRU in stable condition. EBL: Less than 5 ml. Complications: None. Conclusion: 1. Percutaneous transhepatic cholangiogram demonstrates decompressed right hepatic ducts and mild-moderate dilation of left hepatic duct. 2. Successful exchange of 12 F internal external biliary drainage catheter. Routine catheter exchange in 10 to 12 weeks. Thank you this referral. Electronically Signed by Liss Torres MD 01/23/2019 02:59 P
== END ==
LOC: M IRPRO 10:57
PROVIDERS: ATTEND Radiology Diagnostic Radiology
DX: C22.1 Intrahepatic bile duct carcinoma (principal); K83.1 Obstruction of bile duct; Z88.0 Allergy status to penicillin; Z79.899 Other long term (current) drug therapy; Z79.82 Long term (current) use of aspirin
CPT/HCPCS: 47536; 99152; 99153; C1729; C1769; J0696; J1200; J2250; J3010; Q9967

== ENCOUNTER 2019-02-26 16:05 | Inpatient (IN) | payer MEDICARE, OTHER ==
[~2019-02-26] VITALS: Ht 177.8 cm; Wt 62.0 kg
[~2019-02-26 16:05] MED LIST changes: +CARB1TAB97 PO; +FLON1SPR NARES; -ISOVUE-300 61% 50ML VIAL (Q9967) As Ordered ONE; -LIDOCAINE 1% MDV 20ML VIAL As Ordered ONE; -MIDAZOLAM INJ 2 MG/2 ML VIAL (J2250) As Ordered ONE; +OMEP-172 PO; -OMEP20CA4 PO; -cefTRIAXone SOD 1 GM VIAL (J0696) As Ordered ONE; -diphenhydrAMINE INJ 50MG/ML VIAL (J1200) As Ordered ONE; -fentaNYL 100 MCG/2 ML INJECTION (J3010) As Ordered ONE
[2019-02-26 17:07] LABS: BASO % 0.4 % (0.0-1.0); HEMATOCRIT 36.2 % (42.0-52.0); HEMOGLOBIN 10.9 g/dl (13.5-17.5); LYMPH % 1.5 % (24.0-44.0); MEAN CORPUSCULAR HEMOGLOBIN 28.3 pg (27.0-33.0); MEAN CORPUSCULAR HGB CONC 30.1 g/dl (32.0-36.5); MONO # 0.4 10^3/uL (0.0-0.8); MONO % 4.4 % (0.0-5.0); NEUTROPHILS # 8.5 10^3/uL (1.5-8.5); NEUTROPHILS % 93.4 % (36.0-66.0); PLATELET COUNT, AUTOMATED 375 10^3/uL (150-450); RED BLOOD COUNT 3.85 10^6/uL (4.30-6.10); WHITE BLOOD COUNT 9.1 10^3/uL (4.0-10.0)
[2019-02-26] MEDS ORDERED: ACETAMINOPHEN TAB 650MG DOSE (2X325MG) PO ONE (17:15)
[2019-02-26] MEDS ORDERED: NS 1,000 ML IV ONE (17:15)
[2019-02-26 17:21] LABS: INR 1.14; PROTHROMBIN TIME 14.3 SECONDS (11.8-14.0)
[2019-02-26 17:22] LABS: PARTIAL THROMBOPLASTIN TIME 32.8 SECONDS (25.0-38.4)
[2019-02-26 17:26] LABS: LYMPH # 0.1 10^3/uL (1.5-5.0)
--- NOTE | 2019-02-26 17:38 | REPVR ---
PROCEDURE INFORMATION: Exam: CT Head Without Contrast Exam date and time: 02/26/2019 4:25 PM Age: 78 years old Clinical history: Other: Syncope TECHNIQUE: Imaging protocol: Computed tomography of the head without contrast. Radiation optimization: All CT scans at this facility use at least one of these dose optimization techniques: automated exposure control; mA and/or kV adjustment per patient size (includes targeted exams where dose is matched to clinical indication); or iterative reconstruction. COMPARISON: CT Head without contrast 11/14/2017 2:46 PM FINDINGS: Brain: Chronic inferior RIGHT putamen lacunar infarction. Chronic small LEFT subinsular lacunar infarction. Mild hypoattenuating foci are noted in the anterior lateral ventricular periventricular white matter bilaterally. No intracranial hemorrhage. No mass or acute cortical infarction identified. Ventricles: Prominence of the ventricular system and subarachnoid spaces is consistent with the patient's age of 78 years. No hydrocephalus or evidence of increased intracranial pressure. Bilateral prior cataract surgery. Bones/joints: Unremarkable. No acute fracture. Sinuses: Visualized sinuses are unremarkable. No fluid levels. Mastoid air cells: Visualized mastoid air cells are well aerated. Soft tissues: Unremarkable. Vasculature: Atherosclerotic calcifications are present involving the carotid artery siphons bilaterally. IMPRESSION: 1. Chronic inferior RIGHT putamen lacunar infarction. 2. Chronic small LEFT subinsular lacunar infarction. 3. Age appropriate supratentorial and infratentorial atrophy. 4. Mild chronic white matter microvascular ischemic disease. 5. No acute intracranial abnormality identified. Electronically signed by: Nolan Plata On 02/26/2019 17:37:27 PM
[2019-02-26 17:43] LABS: ALBUMIN 2.6 GM/DL (3.2-5.2); ALT/SGPT 17 U/L (12-78); BILIRUBIN,DIRECT 0.4 MG/DL (0.0-0.2); BILIRUBIN,TOTAL 0.6 MG/DL (0.2-1.0); BLOOD UREA NITROGEN 13 MG/DL (7-18); CALCIUM LEVEL 8.1 MG/DL (8.8-10.2); CARBON DIOXIDE LEVEL 32 MEQ/L (21-32); CHLORIDE LEVEL 105 MEQ/L (98-107); CK-MB VALUE MASS 2.4 NG/ML (<3.6); CPK CREATINE PHOSPHOKINASE 44 U/L (39-308); CREATININE FOR GFR 0.61 MG/DL (0.70-1.30); FREE T4 1.33 NG/DL (0.76-1.46); GLOMERULAR FILTRATION RATE > 60.0 (>42); GLUCOSE, FASTING 155 MG/DL (70-100); MB/CK RELATIVE INDEX 5.45 (< OR =4); POTASSIUM SERUM 4.9 MEQ/L (3.5-5.1); SODIUM LEVEL 140 MEQ/L (136-145); TOTAL PROTEIN 6.4 GM/DL (6.4-8.2); TROPONIN I 0.05 NG/ML (< 0.10)
--- NOTE | 2019-02-26 17:46 | REP ---
Clinical: Fever. Comparison: None. Findings: Cardiomegaly and diffuse mid to lower lobe infiltrates with large left pleural effusion and possible layering right effusion. Differential diagnosis includes multifocal pneumonia, CHF and further more significant pathology including neoplasm. Impression: Findings described above likely representing multifocal infiltrates with large left pleural effusion and possible small right pleural effusion. Differential diagnosis includes CHF/pulmonary edema as well as more significant pathology including neoplasm. Electronically Signed by Mark Peters MD 02/26/2019 05:38 P
[2019-02-26] MEDS ORDERED: cefTRIAXone SOD 2 GM in D5W MINI-BAG PLUS 50 ML IV ONE (18:15)
[2019-02-26 18:29] LABS: NT-PRO BNP 1332 PG/ML (<450)
[2019-02-26] MEDS ORDERED: POTA10LI10 PO (18:46)
[2019-02-26] MEDS ORDERED: OMEP-221 PO (18:46)
[2019-02-26] MEDS ORDERED: ASPI81TA85 PO (18:47)
--- NOTE | 2019-02-26 19:09 | HPEPDOC ---
[facility] Medical History & Physical Date of Admission Feb 26, 2019 Date of Service: Feb 26, 2019 Primary Care Physician: ADEOLA NATH DO Attending Physician: Yaw Gomez MD History and Physical TIME OF SERVICE: 8:10 PM CHIEF COMPLAINT: "[place] crummy" HISTORY OF PRESENT ILLNESS: This is a 78-year-old male who presented with complaints of feeling crummy after chemotherapy. So he decided to come here for evaluation. He has been receiving gemcitabine for cholangiocarcinoma and has received over 31 cycles. He doesn't usually feel this way after chemotherapy. Today he felt weak, "froze up", had fevers and chills, cough productive of yellow sputum, runny nose and congestion. He feels that his constellation of symptoms is similar to when he was diagnosed with septic shock due to pneumonia. His legs are more swollen than usual because he held his torsemide for the last 2 days. He denies having headaches or missing any doses of his Parkinson's meds. 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 History of T2 N0 M0 stage I non-small cell lung carcinoma status post left upper lobectomy. Left upper lobe spiculated 1.5 cm nodule, being managed by observation Emphysema/COPD KEELY on BiPAP. Dyslipidemia. Parkinson's disease Chronic inferior right putamen and chronic left sub-insular lacunar infarcts / microvascular ischemic disease Status post tonsillectomy and adenoidectomy Status post right base surgery. Status post right shoulder surgery. SOCIAL HISTORY: He quit smoking Drink alcohol socially. Lives with his who has dementia. He performs most of his ADLs and IADLs, but he does use a walker and cane and his [id number] helps with some of the household activities FAMILY HISTORY: Denies having family history of cancer ALLERGIES: Please see below. HOME MEDICATIONS: Please see below. PHYSICAL EXAMINATION: VITAL SIGNS: Please see below. GENERAL APPEARANCE: Slim built, well-developed, not in apparent distress, does not appear toxic HEENT: Atraumatic, mucous membranes slightly dry CARDIOVASCULAR: Regular rate and rhythm. No murmurs, rubs or gallops LUNGS: Lungs are clear to auscultation bilaterally on room air ABDOMEN: Bowel sounds are hypoactive. Abdomen is soft and nontender on palpation MUSCULOSKELETAL: Range of motion is intact in all 4 extremities INTEGUMENT: He does not have jaundice NEUROLOGICAL: Cranial II-12 grossly intact. Speech is not dysarthric PSYCHIATRIC: Alert and Oriented to person, place and time, able to understand and follow all commands LABORATORY DATA: See below. IMAGING: CT of the head " IMPRESSION: 1. Chronic inferior RIGHT putamen lacunar infarction. 2. Chronic small LEFT subinsular lacunar infarction. 3. Age appropriate supratentorial and infratentorial atrophy. 4. Mild chronic white matter microvascular ischemic disease. 5. No acute intracranial abnormality identified. CT Chest "Impression: Findings described above likely representing multifocal infiltrates with large left pleural effusion and possible small right pleural effusion. Differential diagnosis includes CHF/pulmonary edema as well as more significant pathology including neoplasm. MICROBIOLOGY: Please see below. ASSESSMENT: Mr. Lane is a 78 year old with a past medical history of lung cancer, cholangiocarcinoma, Parkinson's disease, and sleep apnea will be admitted for treatment of pneumonia. PLAN: 1. Sepsis possibly secondary to pneumonia Criteria include Temp >101 / HR >90 He has non diabetic hyperglycemia lactic acid >1 Qsofa score 0 = not high risk Received IV fluids and ceftriaxone in the ER He has some URI symptoms and the chest x-ray showed multifocal infiltrates. His CURB 65 Score is 1 = low risk Plan: admit to PCU / supplemental O2 / Sepsis protocol /will switch to zosyn and levofloxacin /will not give additional IV fluids because he has bilateral lower extremity edema and has missed 2 days of diuretics/f/u VBG, respiratory panel, legionella, strep pneumo, blood cx, sputum Cx, biliary drain culture / Acetaminophen PRN for fever / target MAP 65 to 70 mmHG / f/u Is and Os with target UOP of at least 0.5 ml/kg/H / target serum glucose 140-180 while acutely ill / he can follow up with his PCP to receive the influenza, Prevnar and Pneumovax if not ready given 2. Emphysema/COPD Stable. He is not wheezing Plan: Continue home meds 3. KEELY Plan: c/w own BiPAP. 4.Dyslipidemia / hx of CVA Plan: Continue home meds 5. Parkinson's disease Plan: Continue home meds 6.Elevated BNP Plan: f/u Echo / resume Torsemide & KCl DVT prophylaxis with heparin. Disposition likely home after more than 2 midnight stay Vital Signs Vital Signs Date Time Temp Pulse Resp B/P (MAP) Pulse Ox O2 Delivery O2 Flow Rate FiO2 02/26/19 18:50 98.9 86 96 02/26/19 18:49 148/65 (92) 02/26/19 17:35 18 02/26/19 16:28 Nasal Cannula 4.0 Laboratory Data Labs 24H Laboratory Tests 2 02/26/19 16:39: Immature Granulocyte % (Auto) 0.3, Neutrophils (%) (Auto) 93.4H, Lymphocytes (%) (Auto) 1.5L, Monocytes (%) (Auto) 4.4, Eosinophils (%) (Auto) 0.0, Basophils (%) (Auto) 0.4, Neutrophils # (Auto) 8.5, Lymphocytes # (Auto) 0.1L, Monocytes # (Auto) 0.4, Eosinophils # (Auto) 0.0, Basophils # (Auto) 0.0, Nucleated Red Blood Cells % (auto) 0.0, Prothrombin Time 14.3H, Prothromb Time International Ratio 1.14, Activated Partial Thromboplast Time 32.8, Anion Gap 3L, Glomerular Filtration Rate > 60.0, Calcium Level 8.1L, Total Bilirubin 0.6, Direct Bilirubin 0.4H, Aspartate Amino Transf (AST/SGOT) 27, Alanine Aminotransferase (ALT/SGPT) 17, Alkaline Phosphatase 245H, Total Creatine Kinase 44, Creatine Kinase MB 2.4, Creatine Kinase MB Relative Index 5.45H, Troponin I 0.05, TE-Ins-G-Type Natriuretic Peptide 1332H, Total Protein 6.4, Albumin 2.6L, Albumin/Globulin Ratio 0.68L, Thyroid Stimulating Hormone (TSH) 1.450, Free Thyroxine 1.33 02/26/19 16:41: Lactic Acid Level 0.9 CBC/BMP Laboratory Tests 02/26/19 16:39 Microbiology Microbiology 02/26/19 Blood Culture, Received Pending 02/26/19 Blood Culture, Received Pending Home Medications Scheduled Amiloride HCl (Amiloride HCl) 5 Mg Tab, 5 MG PO DAILY Aspirin (Aspir 81) 81 Mg Tablet.dr, 81 MG PO DAILY Carbidopa/Levodopa (Carbidopa-Levo ER 50-200 Tab) 1 Each Tablet.er, 1 TAB PO 5XD 0500, 0900, 1400, 1900, BEDTIME Fluticasone Propionate (Flonase Allergy Relief) 50 Mcg/Act Spr, 2 SPRAYS NARES DAILY Multivitamin (Multivitamins) 1 Each Capsule, 1 CAP PO DAILY Omeprazole (Omeprazole) 40 Mg Capsule.dr, 40 MG PO BID Potassium Chloride (Potassium Chloride) 40 Meq/15 Ml Liquid, 20 MEQ PO BID Pramipexole Di-HCl (Mirapex) 1.5 Mg Tab, 1.5 MG PO TID 0800, 1200, 2000 Rasagiline Mesylate (Rasagiline Mesylate) 1 Mg Tab, 1 MG PO DAILY Salmeterol/Fluticasone (Advair 250-50 Diskus) 14 Puff/Inhaler Aerp, 1 PUFF INH BID Scheduled PRN Albuterol Sulfate (Proair Hfa) 108 Mcg/Act Aer, 2 PUFFS INH PRN PRN for SHORTNESS OF BREATH Polyvinyl Alcohol (Artificial Tears) 1.4 % Mellisa, 1 DROP OU QID PRN for DRY EYES Torsemide (Torsemide) 20 Mg Tab, 40 MG PO BID PRN for EXCESS FLUID Allergies Coded Allergies: Penicillins (Verified Adverse Reaction, Mild, Mouth Soreness, 06/20/18) amoxicillin (Verified Adverse Reaction, Mild, MOUTH SORES, 02/26/19) A-FIB/CHADSVASC A-FIB History Current/History of A-Fib/PAF?: No Current PO Anticoag Therapy: EDENILSON Aguilera MD Feb 26, 2019 19:09
[2019-02-26] MEDS ORDERED: ACETAMINOPHEN TAB 650MG DOSE (2X325MG) PO PRN (19:15)
[2019-02-26 19:29] LABS: MAGNESIUM LEVEL 2.2 MG/DL (1.8-2.4); PHOSPHORUS LEVEL 3.3 MG/DL (2.5-4.9)
[2019-02-26] MEDS: ADVAIR HFA 115/21MCG INHALER INH SCH (20:00)
[2019-02-26] MEDS: SINEMET 25-100 MG TAB PO SCH ×3 (21:00→23:31)
[2019-02-26] MEDS: POTASSIUM CHLORIDE 10 MEQ SR TABLET PO SCH ×2 (21:00→22:30)
[2019-02-26 21:15] VITALS: BP 146/60
[2019-02-26] MEDS ORDERED: ALBUTEROL 90 MCG/ACT 8GM HFA INHALER INH PRN (22:00)
[2019-02-26] MEDS ORDERED: TORSEMIDE 20 MG TAB PO PRN (22:00)
[2019-02-26] MEDS ORDERED: POLYVINYL ALCOHOL OPHTH SOLN 15 ML(LIQUITEARS) OU PRN (22:00)
[2019-02-26] MEDS ORDERED: SLF 3 ML SYR IV PRN (22:15)
[2019-02-26] MEDS ORDERED: PILL CUTTER 1 EACH XX PRN (22:15)
[2019-02-26] MEDS: HEPARIN SOD (PORCINE) 5000 UNITS/ML VIAL SC SCH (22:29)
[2019-02-26] MEDS: OMEPRAZOLE 20 MG CAP PO SCH (22:30)
[2019-02-26] MEDS: PRAMIPEXOLE 1 MG TAB PO SCH (23:21)
[2019-02-26 23:59] VITALS: BP 116/52
[2019-02-27 04:00] VITALS: BP 130/50
[2019-02-27 05:45] LABS: VENOUS BASE EXCESS -2.4 (-2.0-2.0); VENOUS O2 SATURATION 91.4 % (60.0-80.0); VENOUS PARTIAL PRESSURE CO2 63.4 mmHg (38.0-50.0); VENOUS PARTIAL PRESSURE O2 70.3 mmHg (30.0-50.0); VENOUS STANDARD HCO3 22.3 MEQ/L; VENOUS TOTAL CO2 27.9 MEQ/L (24.0-28.0)
[2019-02-27 05:50] LABS: HEMATOCRIT 34.5 % (42.0-52.0); HEMOGLOBIN 10.1 g/dl (13.5-17.5); MEAN CORPUSCULAR HEMOGLOBIN 28.4 pg (27.0-33.0); MEAN CORPUSCULAR HGB CONC 29.3 g/dl (32.0-36.5); MEAN CORPUSCULAR VOLUME 96.9 fl (80.0-96.0); PLATELET COUNT, AUTOMATED 323 10^3/uL (150-450); RED BLOOD COUNT 3.56 10^6/uL (4.30-6.10); WHITE BLOOD COUNT 15.7 10^3/uL (4.0-10.0)
[2019-02-27] MEDS: SLF 3 ML SYR IV SCH ×3 (05:51→21:00)
[2019-02-27] MEDS: SINEMET 25-100 MG TAB PO SCH (05:51)
[2019-02-27 06:11] LABS: BLOOD UREA NITROGEN 17 MG/DL (7-18); CALCIUM LEVEL 7.8 MG/DL (8.8-10.2); CARBON DIOXIDE LEVEL 30 MEQ/L (21-32); CHLORIDE LEVEL 108 MEQ/L (98-107); CREATININE FOR GFR 0.72 MG/DL (0.70-1.30); GLOMERULAR FILTRATION RATE > 60.0 (>42); GLUCOSE, FASTING 159 MG/DL (70-100); POTASSIUM SERUM 4.8 MEQ/L (3.5-5.1); SODIUM LEVEL 142 MEQ/L (136-145)
[2019-02-27] MEDS: ADVAIR HFA 115/21MCG INHALER INH SCH ×2 (07:13→19:38)
[2019-02-27 08:00] VITALS: BP 104/56
[2019-02-27 08:14] LABS: C REACTIVE PROTEIN QUANTITATIV 7.46 MG/DL (0.00-0.30)
[2019-02-27] MEDS ORDERED: cefTRIAXone SOD 2 GM in D5W MINI-BAG PLUS 50 ML IV SCH (09:00)
[2019-02-27] MEDS ORDERED: LevoFLOXacin IV 750 MG in IV 1 EA IV SCH (09:00)
[2019-02-27] MEDS ORDERED: PNEUMOCOCCAL VACCINE 0.5ML SYRINGE(90732) PNEUMOVAX 23 IM ONE (09:00)
[2019-02-27] MEDS ORDERED: AZITHROMYCIN INJ 500 MG, VIAL MATE ADAPTER 1 EACH in D5W 250 ML IV SCH (10:00)
--- NOTE | 2019-02-27 10:26 | IPNPDOC ---
Subjective Date Seen The patient was seen on 02/27/19. Subjective Chief Complaint/HPI pneumonia, pleural effusion Events since last encounter Admitted overnight with pleural effusion, pneumonia. patient received azithromycin and ceftriaxone through ED. Now with Pip/Anup and Levaquin ordered. Cultures remain pending. patient admits to BLE edema and mild dyspnea with mild orthopnea. takes Torsemide 40 mg po bid prn edema/weight gain. Is on 2 gram sodium 50 ounce FR at home. Constitutional: Denies: Chills, Fever, Night Sweats Pulmonary: Reports: Dyspnea Cardiovascular: Reports: Orthopnea; Denies: Chest Pain, Palpitations, Paroxysmal Noc. Dyspnea, Lt Headedness Gastrointestinal: Denies: Nausea, Vomiting, Abdominal Pain, Diarrhea, Constipation, Melena, Hematochezia, Other Symptoms Genitourinary: Denies: Dysuria, Frequency, Incontinence, Retention Hematologic: Denies: Bruising, Bleeding Excessively Psych: Reports: Mood Normal; Denies: Depression, Memory Issues Objective Physical Examination General Exam: Positive: Alert, No Acute Distress Chest Exam: Positive: Diminished (RLL); Negative: Rhonchi, Wheezing Heart Exam: Positive: Rate Normal, Regular Rhythm, Normal S1, Normal S2; Negative: Murmurs, Rubs Telemetry: Positive: No significant arrhythmia Extremity Exam: Positive: Edema (1-2+ pitting edema BLE), Normal pulses; Negative: Clubbing, Cyanosis Skin Exam: Positive: Nl turgor and temperature; Negative: Rash, Breakdown Psych Exam: Positive: Mental status NL, Mood NL, Oriented x 3 Assessment /Plan Problems (1) Pleural effusion Problem Text: Torsemide 40 mg po x 1 today. repeat CXR in am. No need for oxygen. (2) Pneumonia Status: Acute Problem Text: oxygen saturation stable on RA. DC levaquin. Continue Pip/Anup. WB C elevated at 15.7 today. repeat CXR in am. (3) Diastolic CHF, acute on chronic Status: Acute Problem Text: echo 2018: EF 70%. moderate aortic regurgitation. Follows with SHRADDHA. Started Torsemide 40 mg po x 1 today. Monitor I/O. daily weight. (4) Hypertension Status: Chronic (5) KEELY (obstructive sleep apnea) Status: Chronic (6) COPD (chronic obstructive pulmonary disease) Status: Chronic (7) Cholangiocarcinoma Status: Chronic Problem Text: Follows with Dr. cancino for chemotx. Has biliary drain in place. (8) Diabetes Status: Chronic (9) Hyperlipidemia Status: Chronic (10) Parkinson disease Status: Chronic Plan/VTE VTE Prophylaxis Ordered?: Yes VS, I&O, 24H, Fishbone Vital Signs/I&O Vital Signs Date Time Temp Pulse Resp B/P (MAP) Pulse Ox O2 Delivery O2 Flow Rate FiO2 02/27/19 08:00 97.7 85 20 104/56 (72) 88 Nasal Cannula 3.0 I&O- Last 24 Hours up to 6 AM 02/27/19 06:00 Intake Total 1420 ml Output Total 215 ml Balance 1205 ml Laboratory Data 24H LABS Laboratory Tests 2 02/26/19 16:39: Immature Granulocyte % (Auto) 0.3, Neutrophils (%) (Auto) 93.4H, Lymphocytes (%) (Auto) 1.5L, Monocytes (%) (Auto) 4.4, Eosinophils (%) (Auto) 0.0, Basophils (%) (Auto) 0.4, Neutrophils # (Auto) 8.5, Lymphocytes # (Auto) 0.1L, Monocytes # (Auto) 0.4, Eosinophils # (Auto) 0.0, Basophils # (Auto) 0.0, Nucleated Red Blood Cells % (auto) 0.0, Prothrombin Time 14.3H, Prothromb Time International Ratio 1.14, Activated Partial Thromboplast Time 32.8, Anion Gap 3L, Glomerular Filtration Rate > 60.0, Calcium Level 8.1L, Phosphorus Level 3.3, Magnesium Level 2.2, Total Bilirubin 0.6, Direct Bilirubin 0.4H, Aspartate Amino Transf (AST/SGOT) 27, Alanine Aminotransferase (ALT/SGPT) 17, Alkaline Phosphatase 245H, Total Creatine Kinase 44, Creatine Kinase MB 2.4, Creatine Kinase MB Relative Index 5.45H, Troponin I 0.05, NG-Urb-M-Type Natriuretic Peptide 1332H, Total Protein 6.4, Albumin 2.6L, Albumin/Globulin Ratio 0.68L, Thyroid Stimulating Hormone (TSH) 1.450, Free Thyroxine 1.33 02/26/19 16:41: Lactic Acid Level 0.9 02/26/19 22:57: Urine Color YELLOW, Urine Appearance HAZY, Urine pH 5.0, Urine Specific [place] 1.023, Urine Protein NEGATIVE, Urine Glucose (UA) NEGATIVE, Urine Ketones TRACEH, Urine Blood 1+H, Urine Nitrite NEGATIVE, Urine Bilirubin NEGATIVE, Urine Urobilinogen 2.0H, Urine Leukocyte Esterase NEGATIVE, Urine WBC (Auto) 2, Urine RBC (Auto) 4H, Urine Hyaline Casts (Auto) 26, Urine Bacteria (Auto) NEGATIVE, Urine Squamous Epithelial Cells 0, Urine Mucus (Auto) SMALL, Urine Sperm (Auto) 02/27/19 05:31: Nucleated Red Blood Cells % (auto) 0.0, Anion Gap 4L, Glomerular Filtration Rate > 60.0, Calcium Level 7.8L, Blood Gas Bicarbonate Standard 22.3, Venous Blood pH 7.230L, Venous Blood Partial Pressure CO2 63.4H, Venous Blood Partial Pressure O2 70.3H, Venous Blood Total Carbon Dioxide 27.9, Venous Blood HCO3 26.0, Venous Blood Oxygen Saturation 91.4H, Venous Blood Base Excess -2.4L, C-Reactive Protein, Quantitative 7.46H CBC/BMP Laboratory Tests 02/26/19 16:39 02/27/19 05:31 Microbiology Microbiology 02/26/19 Gram Stain - Final, Resulted 02/26/19 Sputum Culture, Resulted Pending 02/26/19 Respiratory Virus Panel (PCR) (TEGAN) - Final, Complete 02/26/19 Body Fluid Culture, Received Pending 02/26/19 Blood Culture, Received Pending 02/26/19 Blood Culture, Received Pending Cindy Rawls [facility] Feb 27, 2019 10:26
[2019-02-27] MEDS ORDERED: TORSEMIDE 20 MG TAB PO ONE (10:30)
[2019-02-27] MEDS: FLUTICASONE PROP 0.05% NASAL SPRAY 16 GM (FLONASE) NARES SCH (10:55)
[2019-02-27] MEDS: PIPERACILLIN/TAZOBACTAM SOD 4.5 GM in D5W MINI-BAG PLUS 100 ML IV SCH ×3 (10:55→21:00)
[2019-02-27] MEDS: ASPIRIN 81 MG ENTERIC TAB PO SCH (10:56)
[2019-02-27] MEDS: HEPARIN SOD (PORCINE) 5000 UNITS/ML VIAL SC SCH ×2 (10:56→21:00)
[2019-02-27] MEDS: OMEPRAZOLE 20 MG CAP PO SCH ×2 (10:56→20:59)
[2019-02-27] MEDS: aMILoride 5 MG TAB PO SCH (11:34)
[2019-02-27] MEDS: PRAMIPEXOLE 1 MG TAB PO SCH ×3 (11:35→20:58)
[2019-02-27] MEDS: SINEMET**CR** 25/100 TABCR PO SCH ×4 (11:37→20:59)
[2019-02-27 12:00] VITALS: BP 130/64
--- NOTE | 2019-02-27 12:47 | REP ---
Clinical: Effusion. Technique: Axial noncontrast images from the thoracic inlet to the upper abdomen with coronal and sagittal re-formations. Comparison: 02/05/2019. Findings: The moderate to large left pleural effusion is essentially unchanged. Areas of consolidation and atelectasis consistent with multifocal pneumonia have increased in the left upper lobe and residual aerated left lower lobe. There is now a new large area of consolidation with air bronchograms involving the right lower lobe with small right effusion. No pneumothorax. Remainder of the examination demonstrates stable chronic nonacute findings including atherosclerotic disease to the thoracic aorta and coronary arteries without evidence for aortic aneurysm and stable cardiomegaly. Mild reactive adenopathy remains unchanged. Musculoskeletal structures stable. Impression: Increasing pathologic findings as described above including a new large area of consolidation in the right lower lobe, increased atelectasis/infiltrates in the aerated left lung and new small right effusion. Moderate to large left effusion remains stable. Electronically Signed by Mark Peters MD 02/27/2019 12:38 P
[2019-02-27] MEDS ORDERED: SODIUM CHLORIDE 0.9% INJ 10 ML SYR IV PRN (14:30)
--- NOTE | 2019-02-27 15:33 | ECGEPIP ---
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
[2019-02-27 16:00] VITALS: BP 119/58
--- NOTE | 2019-02-27 19:16 | IPN ---
DATE: 02/27/2019 I saw Fran in the PCU where a CT scan of the chest showed increasing pathological findings. Large area of consolidation right lower lobe increased infiltrates, left lung mildly enlarged left pleural effusion small right pleural effusion. Case was discussed with Dr. Kirkpatrick who sees the patient as an outpatient. He agreed to see the patient in consultation. Review of CT and see the patient tomorrow.
[2019-02-27 21:30] VITALS: BP 135/60
[2019-02-27 23:59] VITALS: BP 128/59
[2019-02-28] MEDS: POTASSIUM CHLORIDE 10% LIQ 20 MEQ/15 ML UDC PO SCH ×2 (00:32→10:39)
[2019-02-28] MEDS: PIPERACILLIN/TAZOBACTAM SOD 4.5 GM in D5W MINI-BAG PLUS 100 ML IV SCH ×2 (03:07→10:43)
[2019-02-28 04:00] VITALS: BP 138/62
[2019-02-28 05:55] LABS: EOS % 0.2 % (0.0-3.0); HEMATOCRIT 29.4 % (42.0-52.0); HEMOGLOBIN 8.6 g/dl (13.5-17.5); LYMPH # 0.4 10^3/uL (1.5-5.0); LYMPH % 4.9 % (24.0-44.0); MEAN CORPUSCULAR HEMOGLOBIN 28.2 pg (27.0-33.0); MEAN CORPUSCULAR HGB CONC 29.3 g/dl (32.0-36.5); MEAN CORPUSCULAR VOLUME 96.4 fl (80.0-96.0); MONO # 0.3 10^3/uL (0.0-0.8); NEUTROPHILS # 7.9 10^3/uL (1.5-8.5); NEUTROPHILS % 91.3 % (36.0-66.0); RED BLOOD COUNT 3.05 10^6/uL (4.30-6.10); WHITE BLOOD COUNT 8.7 10^3/uL (4.0-10.0)
[2019-02-28] MEDS: SINEMET**CR** 25/100 TABCR PO SCH ×3 (06:00→13:13)
[2019-02-28] MEDS: SLF 3 ML SYR IV SCH (06:00)
[2019-02-28 06:12] LABS: PLATELET COUNT, AUTOMATED 214 10^3/uL (150-450)
[2019-02-28 06:21] LABS: ALBUMIN 2.1 GM/DL (3.2-5.2); ALT/SGPT 7 U/L (12-78); BILIRUBIN,TOTAL 0.5 MG/DL (0.2-1.0); BLOOD UREA NITROGEN 19 MG/DL (7-18); CALCIUM LEVEL 7.9 MG/DL (8.8-10.2); CARBON DIOXIDE LEVEL 32 MEQ/L (21-32); CHLORIDE LEVEL 106 MEQ/L (98-107); GLOMERULAR FILTRATION RATE > 60.0 (>42); GLUCOSE, FASTING 81 MG/DL (70-100); POTASSIUM SERUM 4.1 MEQ/L (3.5-5.1); SODIUM LEVEL 143 MEQ/L (136-145); TOTAL PROTEIN 5.6 GM/DL (6.4-8.2)
--- NOTE | 2019-02-28 07:15 | ECHO ---
DATE OF PROCEDURE: 02/27/2019 DATE OF : 1940 AGE: 78 HEIGHT: 70 inches. WEIGHT: 136 pounds. BODY SURFACE AREA: 1.78 meters squared. LOCATION: Inpatient PCU, room 3228. REFERRING PHYSICIAN: Teresa Walker MD INDICATION: Dyspnea. MEASUREMENTS 2-D MEASUREMENTS: RV - 5.4 cm LV - 4.4 cm Septum 1.3 cm Posterior wall 1.3 cm Aortic root 3.3 cm LA - 4.0 cm LVEF 80% DOPPLER MEASUREMENTS: AV - 1.49 m/s LVOT 1.03 m/s LVOT diameter 2.4 cm MV - E 70, A 83, E/A ratio 0.8 Early mitral deceleration time 225 ms E prime medial 8, A prime medial 9.5, E prime lateral 12, average E/E prime ratio 7 PCWP 10.6 mmHg PV - 0.7 m/s Pulmonary artery acceleration time 95 ms RVSP 54 mmHg IVC - 2.3 cm COMMENTS: Normal sinus rhythm without intraventricular conduction disturbance. M-mode and two-dimensional echocardiography was performed with pulsed, continuous wave, color flow and tissue Doppler studies. Mild concentric left ventricle hypertrophy with hyperkinetic wall motion. Mildly dilated left atrium with grade 1 LV diastolic dysfunction but currently normal estimated mean left atrial pressure. Moderately prominently dilated right heart chambers with adequate right ventricular free wall motion and Doppler evidence of at least moderately severe pulmonary hypertension. Mildly dilated inferior vena cava with absent respiratory collapse in keeping with elevated central venous pressure. Slightly asymmetrically thickened aortic valve, especially the noncoronary cusp, with adequate cusp separation and least mild to possibly moderate insufficiency. Normal aortic root diameter. Slightly thickened mitral annulus but normal leaflet thickness and excursion with no posterior systolic buckling but mild to moderate insufficiency. Normal appearing tricuspid valve but moderately severe insufficiency. No apparent intracardiac mass or pericardial effusion. Large pleural effusion. The above test findings are more in keeping with cor pulmonale than right ventricular dysfunction due to left ventricular disease.
[2019-02-28] MEDS: ADVAIR HFA 115/21MCG INHALER INH SCH (07:51)
[2019-02-28 08:00] VITALS: BP 140/63
[2019-02-28 09:00] VITALS: BP 110/45
[2019-02-28] MEDS ORDERED: RASAGILINE 1 MG PO SCH (09:00)
[2019-02-28] MEDS ORDERED: DOCUSATE SODIUM 100 MG CAP PO SCH (09:00)
[2019-02-28] MEDS: HEPARIN SOD (PORCINE) 5000 UNITS/ML VIAL SC SCH (09:00)
[2019-02-28] MEDS ORDERED: SODIUM CHLORIDE 0.9% INJ 10 ML SYR IV SCH (09:00)
[2019-02-28] MEDS: ASPIRIN 81 MG ENTERIC TAB PO SCH (10:36)
[2019-02-28] MEDS: OMEPRAZOLE 20 MG CAP PO SCH (10:36)
[2019-02-28] MEDS: FLUTICASONE PROP 0.05% NASAL SPRAY 16 GM (FLONASE) NARES SCH (10:46)
--- NOTE | 2019-02-28 10:54 | CR ---
DATE OF CONSULTATION: 02/28/[address] Gambino. HISTORY OF PRESENT ILLNESS: I saw Mr. Lane here in the hospital. The patient well known to me from the outpatient setting. He said he just felt weak after chemotherapy yesterday. He said he has been overdoing it with outside work and especially snow blowing. He was afebrile. CT showed some findings at the left base worrisome for a new pneumonia. He had small bilateral pleural effusions. I am asked to comment further. Maximum temperature (Tmax) overnight 97.8, blood pressure 130s-140s systolic, heart rate generally in the 60s-70s, respiratory rate 18-22 without accessory muscle use. Intake and output (I and O) midnight to midnight 1600 mL in with 850 mL out. Most recent laboratories show white blood cell count 8.7, hemoglobin 8.6, platelet count 214,000, 91% segmented neutrophils, no bands. Sodium 143, potassium 4.1, chloride 106, CO2 32, BUN 19, creatinine 0.8. Blood gas done yesterday, venous gas, pH 7.230, PCO2 of 63.4, pO2 of 70.3. On examination, currently, he is chronically ill-appearing but is comfortable. States he is back to his normal self. HEENT: Otherwise, reasonably normocephalic, atraumatic. Pupils react. Neck: Is with diminished mobility. Airway is class 2. Membranes are moist. Chest shows diminished bilateral air entry. Scar is consistent with his previous thoracotomy. There are some fine crackles at the bases but no convincing rubs or rhonchi. Cardiovascular examination: Is regular with no gallop. Peripheral pulses palpable. Trace edema. Abdomen shows evidence of his previous surgery. No organomegaly or mass. Extremities without cyanosis or clubbing. Neurologically, he is awake, alert, and appropriate. CT scan is reviewed; and compared to his scan from several weeks ago, there are small bilateral pleural effusions. There is chronic scarring with adhesions on the left. There are areas of bronchiectasis with increased nodular-appearing infiltrative areas on the left, most consistent with an infectious or inflammatory process, given the short-term appearance of them. IMPRESSION: 1. Abnormal CT scan. 2. Hepatobiliary carcinoma. 3. Lung cancer, status post resection. No evidence of recurrence. 4. Bronchiectasis. RECOMMENDATIONS: At this point, I am agreeing with his current antimicrobials. No need to address his effusions, as they are small. I do believe this is either inflammatory or infectious, and he has clinically responded to current therapy. I would continue that as is. He is very anxious for discharge, as his is actually ill and hospitalized, and the sooner he can be changed to an oral regimen, the better. He already has followup arranged with me in the outpatient setting. Further recommendations will be made in the progress record as new information becomes available.
[2019-02-28] MEDS: PRAMIPEXOLE 1 MG TAB PO SCH (11:20)
[2019-02-28] MEDS: aMILoride 5 MG TAB PO SCH (11:38)
[2019-02-28 14:00] VITALS: BP 121/51
[2019-02-28] MEDS ORDERED: DOXY100C PO (15:05)
--- NOTE | 2019-02-28 15:29 | DSES ---
DATE OF ADMISSION: 02/26/2019 DATE OF DISCHARGE: 02/28/2019 PRINCIPLE DIAGNOSIS: Multifocal pneumonia with pleural effusion. SECONDARY DIAGNOSES: Cor pulmonale. Hypertension. Obstructive sleep apnea (KEELY). Chronic obstructive pulmonary disease (COPD). Metastatic cholangiocarcinoma. Parkinson disease. Hyperlipidemia. CONSULTATION: Dr. Declan Kirkpatrick. PROCEDURE: Echocardiogram (at last moderately severe pulmonary hypertension with dilated right heart chambers noted consistent with diagnosis of cor pulmonale). HISTORY: Patient admitted with pneumonia. Detailed history is as admission history and physical. HOSPITAL COURSE: Admitted to a medical bed and started on Zosyn. He responded to this. Consultation placed to Dr. Kirkpatrick who knows the patient from outpatient care. He did not feel pleural effusions needed intervention. Patient responded well on prescribed therapy. He is insisting on discharge today. His is in the hospital and he wants to go home. He has supplemental oxygen at home, which he wears if his oxygen saturation drops below 88% at home. DISCHARGE LABS: White count 87, hemoglobin 86, platelets 214. Sodium 143, potassium 4.1, BUN 19, creatinine 0.8, glucose 81. Sputum culture looks like it has got mostly yeast. Respiratory panel is negative. DISPOSITION: He is discharged home in improved and stable condition. He will resume the medicines he was taking prior to admission, which is albuterol as needed, amiloride 5 mg daily, aspirin 81 mg daily, Sinemet 50/200 ER one tablet five times daily, Flonase spray, omeprazole 40 mg twice a day, potassium chloride 20 mEq twice a day, Mirapex 1.5 mg three times a day, rasagiline mesylate 1 mg daily, Advair 250/50 one inhalation twice a day, torsemide 40 mg twice a day as needed for fluid retention. New prescription is doxycycline 100 mg twice a day for 7 days. Followup with his primary care provider in a week. Activity as tolerated. Diet as tolerated. edited: 03/01/2019 0724 tkaleksander HAMMER
[2019-03-03 15:06] LABS: BODY FLUID CULTURE Not Indicated (.); LEGIONELLA ANTIGEN URINE Negative (Negative); ORGANISM ID Not indicated. (.); SPECIMEN SOURCE Urine (.); URINE STREP PNEUMONIAE ANTIGEN Negative (Negative)
[2019-03-05] MEDS ORDERED: SINE50TA PO (13:39)
== END 2019-02-28 16:40 | disposition home or self-care (01) | DRG 193 ==
LOC: M ED 16:05 → M ED INP 19:09 → M PCU 21:05 → M MSPAV 02-28 08:52
PROVIDERS: ADMIT Internal Medicine; ATTEND Family Medicine
DX: J18.9 Pneumonia, unspecified organism (principal); I50.33 Acute on chronic diastolic (congestive) heart failure; I63.89 Other cerebral infarction; C22.1 Intrahepatic bile duct carcinoma; I67.82 Cerebral ischemia; Z90.2 Acquired absence of lung [part of]; R91.1 Solitary pulmonary nodule; J44.9 Chronic obstructive pulmonary disease, unspecified; G47.33 Obstructive sleep apnea (adult) (pediatric); E78.5 Hyperlipidemia, unspecified; G20 Parkinson's disease; Z92.21 Personal history of antineoplastic chemotherapy; Z96.89 Presence of other specified functional implants; Z85.118 Personal history of other malignant neoplasm of bronchus and lung; Z79.82 Long term (current) use of aspirin; Z79.51 Long term (current) use of inhaled steroids; Z79.899 Other long term (current) drug therapy; Z88.0 Allergy status to penicillin; Z88.1 Allergy status to other antibiotic agents; I11.0 Hypertensive heart disease with heart failure; E11.9 Type 2 diabetes mellitus without complications; I27.29 Other secondary pulmonary hypertension

== ENCOUNTER 2019-03-12 07:23 | Emergency (ER) | payer MEDICARE, OTHER ==
[~2019-03-12] VITALS: Ht 177.8 cm; Wt 62.7 kg
[~2019-03-12 07:23] MED LIST changes: +DOXY100C PO; +OMEP-221 PO; +POTA10LI10 PO; +SINE50TA PO
--- NOTE | 2019-03-12 10:07 | REP ---
KUB: Single view. HISTORY: Check tube placement. FINDINGS: There is a large caliber internal/external string-fixed pigtail biliary drainage catheter in place in the right upper quadrant coursing through a previously placed common bile duct Wallstent. There are clips in the upper abdomen and sutures. Vascular calcifications noted. Bowel gas pattern is normal. The biliary drainage catheter appears to be in good position and is not kinked or dislodged. IMPRESSION: Internal/external biliary drainage catheter in good position. A Wallstent in the common bile duct. Electronically Signed by Emir Calero MD 03/12/2019 03:26 P
[2019-03-12 10:38] VITALS: BP 124/60
== END 2019-03-12 10:50 | disposition short-term general hospital (02) ==
LOC: M ED 07:23
DX: T85.638A Leakage of other specified internal prosthetic devices, implants and grafts, initial encounter (principal); X58.XXXA Exposure to other specified factors, initial encounter; Y92.89 Other specified places as the place of occurrence of the external cause; I11.0 Hypertensive heart disease with heart failure; I50.9 Heart failure, unspecified; J44.9 Chronic obstructive pulmonary disease, unspecified; E11.9 Type 2 diabetes mellitus without complications; E78.5 Hyperlipidemia, unspecified; G20 Parkinson's disease; F31.9 Bipolar disorder, unspecified; Z85.118 Personal history of other malignant neoplasm of bronchus and lung; Z99.81 Dependence on supplemental oxygen

== ENCOUNTER → 2019-04-05 | Outpatient (REF) | payer MEDICARE, OTHER ==
[~2019-04-05] MED LIST changes: -OMEP-172 PO; +OMEP1CAP73 PO
== END ==
LOC: M LAB REF 17:00
PROVIDERS: ATTEND Internal Medicine Pulmonary Disease
DX: R91.8 Other nonspecific abnormal finding of lung field (principal)

== ENCOUNTER → 2019-04-08 | Outpatient (REF) | payer MEDICARE, OTHER ==
[~2019-04-08] MED LIST changes: +ASPI-161 PO; -FLON1SPR NARES; +LEVO500T3 PO; +VITMTA PO
[2019-04-08 14:08] LABS: BASO % 0.2 % (0.0-1.0); EOS % 0.2 % (0.0-3.0); HEMATOCRIT 31.8 % (42.0-52.0); HEMOGLOBIN 9.4 g/dl (13.5-17.5); LYMPH # 0.6 10^3/uL (1.5-5.0); LYMPH % 11.6 % (24.0-44.0); MEAN CORPUSCULAR HEMOGLOBIN 27.6 pg (27.0-33.0); MEAN CORPUSCULAR HGB CONC 29.6 g/dl (32.0-36.5); MEAN CORPUSCULAR VOLUME 93.5 fl (80.0-96.0); MONO # 0.4 10^3/uL (0.0-0.8); MONO % 8.5 % (0.0-5.0); NEUTROPHILS # 3.8 10^3/uL (1.5-8.5); NEUTROPHILS % 79.3 % (36.0-66.0); PLATELET COUNT, AUTOMATED 192 10^3/uL (150-450); WHITE BLOOD COUNT 4.8 10^3/uL (4.0-10.0)
[2019-04-08 14:45] LABS: ALBUMIN 2.3 GM/DL (3.2-5.2); ALT/SGPT 7 U/L (12-78); BILIRUBIN,TOTAL 0.4 MG/DL (0.2-1.0); BLOOD UREA NITROGEN 21 MG/DL (7-18); CALCIUM LEVEL 7.8 MG/DL (8.8-10.2); CARBON DIOXIDE LEVEL 27 MEQ/L (21-32); CHLORIDE LEVEL 102 MEQ/L (98-107); CREATININE FOR GFR 0.72 MG/DL (0.70-1.30); FREE T4 1.33 NG/DL (0.76-1.46); GLOMERULAR FILTRATION RATE > 60.0 (>42); GLUCOSE, FASTING 63 MG/DL (70-100); POTASSIUM SERUM 4.2 MEQ/L (3.5-5.1); SODIUM LEVEL 136 MEQ/L (136-145); TOTAL PROTEIN 6.6 GM/DL (6.4-8.2)
== END ==
LOC: M SFHCADAM 09:06
PROVIDERS: ATTEND Family Medicine
DX: R05 Cough (principal); E16.2 Hypoglycemia, unspecified; R63.4 Abnormal weight loss; Z63.4 Disappearance and death of family member; R91.8 Other nonspecific abnormal finding of lung field; J90 Pleural effusion, not elsewhere classified
CPT/HCPCS: 71046; 80053; 84439; 84443; 85025; G0463

== ENCOUNTER → 2019-04-08 | Outpatient (CLI) | payer MEDICARE, OTHER ==
[~2019-04-08] MED LIST changes: -ASPI-161 PO; +FLON1SPR NARES; -LEVO500T3 PO; -VITMTA PO
--- NOTE | 2019-04-08 13:29 | REP ---
CHEST, TWO VIEWS: Two views of the chest are performed and compared to prior CT, 02/27/2019 and radiograph 02/26/2019. There are, again, patchy infiltrates in both lower lobes, but these have improved somewhat since the prior exams. Mild to moderate left pleural effusion appears essentially unchanged. Heart and mediastinum appear unchanged. Left central venous catheter is again noted, unchanged in position. Metallic clips are seen in the left hilar region, and there is mild calcification of the thoracic aorta. Biliary drainage catheter is noted in the upper abdomen. IMPRESSION: Bilateral lower lobe infiltrates have improved somewhat since prior studies, most recent chest radiograph is 02/26/2019. Mild to moderate left pleural effusion is essentially unchanged. Electronically Signed by Mike Helton MD 04/08/2019 06:06 P
== END ==
LOC: M ADAMS 09:11
PROVIDERS: ATTEND Family Medicine
DX: R91.8 Other nonspecific abnormal finding of lung field (principal); J90 Pleural effusion, not elsewhere classified; R05 Cough

== ENCOUNTER → 2019-04-09 | Outpatient (CLI) | payer MEDICARE, OTHER ==
[~2019-04-09] MED LIST changes: +ASPI-161 PO; -FLON1SPR NARES; +LEVO500T3 PO; +VITMTA PO
--- NOTE | 2019-04-09 19:18 | REP ---
PET/CT: History: Restaging cholangiocarcinoma. On chemotherapy. Comparisons: Comparison PET-CT August 08, 2018 and September 17, 2015. Comparison CT study of the chest is from February 27, 2019. TECHNIQUE: 62 minutes following the intravenous injection of a 7.57 mCi dose of F-18 FDG, three-dimensional PET scintigraphy is acquired from the skull base to the proximal thighs. Triplanar noncontrast CT scanning is acquired through the same anatomic range for attenuation correction, and image registration with scan parameters optimized to minimize radiation exposure to the patient. PET scintigraphy and CT datasets were fused and displayed on a workstation with multiplanar and projection display capability. PET/CT Findings: There is an area of ricardo portal hypermetabolic uptake surrounding the biliary stent in the allison hepatis. Maximum standard uptake value here is 7.0 today, previously 5.1. This area appears quite similar. No other abnormal hypermetabolic uptake is seen in the abdomen or pelvis. Head and neck soft tissues are unremarkable. There are bilateral pleural effusions visible today. No hypermetabolic uptake is seen within the pleural effusions however. There is extensive consolidation in the right middle lobe and right lower lobe on today's CT study. There is hypermetabolic uptake within this parenchymal opacity. Maximum standard uptake value in the right lower lobe consolidation is 5.37. Right middle lobe opacification shows uptake to 3.95 SUV. No other intrathoracic hypermetabolic uptake. Impression: There is persistent hypermetabolic uptake around the stent in the allison hepatis. There are extensive areas of pulmonary opacity consistent with consolidation in the right lower lobe and right middle lobe. The middle lobe disease is more pronounced than the CT study from February 27, 2019. The lower lobe opacity is similar. This is nonspecific and may reflect a pneumonia, rather than metastatic disease or lymphangitic spread. The right pleural effusion has increased. There are now bilateral pleural effusions. No other abnormal hypermetabolic uptake. Electronically Signed by Emir Calero MD 04/10/2019 08:12 A
== END ==
LOC: M PLARAD 08:46
PROVIDERS: ATTEND Internal Medicine Medical Oncology
DX: C24.0 Malignant neoplasm of extrahepatic bile duct (principal); J90 Pleural effusion, not elsewhere classified; R91.8 Other nonspecific abnormal finding of lung field
CPT/HCPCS: 78815; A9552

== ENCOUNTER 2019-04-15 19:15 | Observation (INO) | payer MEDICARE, OTHER ==
[~2019-04-15] VITALS: Ht 180.3 cm; Wt 56.5 kg
[~2019-04-15 19:15] MED LIST changes: -ASPI-161 PO; -LEVO500T3 PO; -VITMTA PO
[2019-04-15] MEDS ORDERED: NALOXONE INJ 2 MG/2 ML SYRINGE (J2310) IV STA (20:10)
[2019-04-15 20:39] LABS: BASO % 0.1 % (0.0-1.0); HEMATOCRIT 43.1 % (42.0-52.0); LYMPH % 1.4 % (24.0-44.0); MEAN CORPUSCULAR HEMOGLOBIN 27.5 pg (27.0-33.0); MEAN CORPUSCULAR HGB CONC 30.2 g/dl (32.0-36.5); MEAN CORPUSCULAR VOLUME 91.1 fl (80.0-96.0); MONO # 0.5 10^3/uL (0.0-0.8); MONO % 3.6 % (0.0-5.0); NEUTROPHILS # 12.6 10^3/uL (1.5-8.5); NEUTROPHILS % 93.8 % (36.0-66.0); PLATELET COUNT, AUTOMATED 205 10^3/uL (150-450); RED BLOOD COUNT 4.73 10^6/uL (4.30-6.10); WHITE BLOOD COUNT 13.4 10^3/uL (4.0-10.0)
[2019-04-15 20:40] LABS: VENOUS BASE EXCESS -3.2 (-2.0-2.0); VENOUS HCO3 23.6 MEQ/L (23.0-27.0); VENOUS O2 SATURATION 99.6 % (60.0-80.0); VENOUS PARTIAL PRESSURE CO2 49.3 mmHg (38.0-50.0); VENOUS PARTIAL PRESSURE O2 206.8 mmHg (30.0-50.0); VENOUS PH 7.298 UNITS (7.330-7.430); VENOUS STANDARD HCO3 21.9 MEQ/L; VENOUS TOTAL CO2 25.1 MEQ/L (24.0-28.0)
[2019-04-15 20:56] LABS: LYMPH # 0.2 10^3/uL (1.5-5.0)
--- NOTE | 2019-04-15 21:06 | REPVR ---
PROCEDURE INFORMATION: Exam: CT Head Without Contrast Exam date and time: 04/15/2019 8:58 PM Age: 78 years old Clinical indication: Pain; Headache; Additional info: AMS TECHNIQUE: Imaging protocol: Computed tomography of the head without contrast. Radiation optimization: All CT scans at this facility use at least one of these dose optimization techniques: automated exposure control; mA and/or kV adjustment per patient size (includes targeted exams where dose is matched to clinical indication); or iterative reconstruction. COMPARISON: CT Head without contrast 02/26/2019 5:07 PM FINDINGS: Brain: No intracranial mass, mass effect or midline shift. No acute intracranial hemorrhage. No CT evidence of acute cortical infarct. Ventricles: Ventricles, cisterns, and sulci are normal in size for age. Bones/joints: No calvarial fracture or destructive process. Sinuses: Imaged paranasal sinuses are clear. Mastoid air cells: Mastoid air cells are normally aerated. Orbits: Imaged orbits are unremarkable. Soft tissues: No focal extracranial soft tissue swelling. IMPRESSION: No acute or concerning focal intracranial abnormality. Electronically signed by: Alessandro Ta On 04/15/2019 21:06:03 PM
[2019-04-15 21:26] LABS: ALBUMIN 2.2 GM/DL (3.2-5.2); ALT/SGPT 23 U/L (12-78); BILIRUBIN,DIRECT 0.2 MG/DL (0.0-0.2); BILIRUBIN,TOTAL 0.6 MG/DL (0.2-1.0); BLOOD UREA NITROGEN 41 MG/DL (7-18); CALCIUM LEVEL 8.1 MG/DL (8.8-10.2); CARBON DIOXIDE LEVEL 28 MEQ/L (21-32); CHLORIDE LEVEL 108 MEQ/L (98-107); CREATININE FOR GFR 1.04 MG/DL (0.70-1.30); ETHYL ALCOHOL (ETHANOL) < 0.003 % (0.000-0.010); FREE THYROXINE INDEX 3.3 % (1.4-3.8); GLOMERULAR FILTRATION RATE > 60.0 (>42); GLUCOSE, FASTING 84 MG/DL (70-100); POTASSIUM SERUM 5.3 MEQ/L (3.5-5.1); SODIUM LEVEL 141 MEQ/L (136-145); T UPTAKE 34 % (33-40); THYROXINE (T4) 9.7 UG/DL (4.5-12.0)
[2019-04-15] MEDS ORDERED: NS 500 ML IV ONE ×2 (21:45→23:00)
[2019-04-15] MEDS ORDERED: LevoFLOXacin IV 500 MG in IV 1 EA IV ONE (22:00)
[2019-04-15] MEDS ORDERED: VITMTA PO (23:43)
[2019-04-15] MEDS ORDERED: ASPI-161 PO (23:43)
[2019-04-15] MEDS ORDERED: DOXY100C PO (23:43)
[2019-04-15] MEDS ORDERED: LEVO500T3 PO (23:43)
[2019-04-16] MEDS ORDERED: MORPHINE 2 MG/ML 1ML VIAL (J2270) IV PRN (00:30)
[2019-04-16] MEDS ORDERED: SCOPOLAMINE 1MG TRANSDERMAL PATCH TOP PRN (00:30)
[2019-04-16] MEDS ORDERED: LORazepam 2 MG/ML VIAL (J2060) IV PRN (00:30)
[2019-04-16 02:32] VITALS: BP 108/53
--- NOTE | 2019-04-16 03:09 | HPEPDOC ---
General Date of Admission Apr 15, 2019 at 19:16 Date of Service: Apr 15, 2019 Chief Complaint The patient is a 78-year-old male Who presented to the hospital after he was found unconscious with shallow breathing History of Present Illness Patient is a 78-year-old male with a past medical history of Unresectable locally advanced cholangiocarcinoma (s/p transhepatic stent and aborted whipple, T2N0M0), Small cell lung cancer s/p left upper lobectomy, Hx of CVA (R Putamen, Chronic L subinsular lacunar infarcts), COPD, KEELY on BIPAP, DLP, Dementia, Parkinsons disease , who presented to the emergency room brought in by EMS after he was found unconscious. Patients family reported that he was last known well on Monday at 3 PM. Patients family went to go check up on him at 6 PM when he had found him unconscious with shallow breathing. Upon arrival to emergency room, patient was unresponsive, did not follow commands. Patient was also noted to be hypothermic at 88.5F. Imaging completed revealed worsening pneumonia. Patient was found to be hypoxic; his saturations remained in the 70s to 80s while on 100% nonrebreather mask. Patient healthcare proxy has presented a living will which has indicated DO NOT RESUSCITATE and DO NOT INTUBATE in specific instances. Patients family would like to proceed with comfort measures alone. Mee advised them that nonessential medications will be discontinued, as well as blood work, imaging and vital signs. Antibiotics and IV fluids will be discontinued. 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 Home Medications Scheduled Amiloride HCl (Amiloride HCl) 5 Mg Tab, 5 MG PO DAILY, (Reported) Aspirin (Aspirin EC) 81 Mg Tablet.dr, 81 MG PO DAILY, (Reported) Carbidopa/Levodopa (Carbidopa-Levo ER 50-200 Tab) 1 Each Tablet.er, 1 TAB PO 5XD, (Reported) 0500, 0900, 1400, 1900, BEDTIME Doxycycline Hyclate (Doxycycline Hyclate) 100 Mg Capsule, 100 MG PO BID, (Reported) Fluticasone Propionate (Flonase Allergy Relief) 50 Mcg/Act Spr, 2 SPRAYS NA DAILY, (Reported) Levofloxacin (Levofloxacin) 500 Mg Tablet, 500 MG PO DAILY, (Reported) Multivitamins (Thera M Plus Tablet) 1 Each Tablet, 1 TAB PO DAILY, (Reported) Omeprazole (Omeprazole) 40 Mg Capsule.dr, 40 MG PO BID, (Reported) Potassium Chloride (Potassium Chloride) 40 Meq/15 Ml Liquid, 20 MEQ PO BID, (Reported) Pramipexole Di-HCl (Mirapex) 1.5 Mg Tab, 1.5 MG PO TID, (Reported) 0800, 1200, 2000 Rasagiline Mesylate (Rasagiline Mesylate) 1 Mg Tab, 1 MG PO DAILY, (Reported) Salmeterol/Fluticasone (Advair 250-50 Diskus) 14 Puff/Inhaler Aerp, 1 PUFF INH BID, (Reported) Scheduled PRN Albuterol Sulfate (Proair Hfa) 108 Mcg/Act Aer, 2 PUFFS INH Q4H PRN for SHORTNESS OF BREATH, (Reported) Polyvinyl Alcohol (Artificial Tears) 1.4 % Mellisa, 1 DROP OU QID PRN for DRY EYES, (Reported) Torsemide (Torsemide) 20 Mg Tab, 40 MG PO BID PRN for EXCESS FLUID, (Reported) Allergies Coded Allergies: Penicillins (Verified Adverse Reaction, Mild, Mouth Soreness, 06/20/18) amoxicillin (Verified Adverse Reaction, Mild, MOUTH SORES, 02/26/19) Past Medical History Medical History Unresectable locally advanced cholangiocarcinoma (s/p transhepatic stent and aborted whipple, T2N0M0), Small cell lung cancer s/p left upper lobectomy, Hx of CVA (R Putamen, Chronic L subinsular lacunar infarcts), COPD, KEELY on BIPAP, DLP, Dementia, Parkinsons disease Surgical History Tonsillectomy Adenoidectomy R bas surgery Aborted whipple Left upper lobectomy Right should surgery Family History - Reviewed and is currently noncommunicative and allergic heart hospitalization Social History - Unable to acquire social history as patient is unresponsive. Previous medical record has indicated patient does drink alcohol socially Review of Systems Other systems - Unable to be obtained, as patient is unresponsive Vital Signs - Vitals: BP 105/53, HR 83, RR 24, Sat 79%Non-rebreather, Temp 94.4 - General: Lying in bed, Non-responsive - HEENT: NC, AT, Pupils reactive - CVS: RRR, +S1S2 - Lungs: Poor inspiratory effort bilaterally, Positive rhonchi bilaterally - Abdomen: Soft, Non-distended, Non-tender - Extremities: No lower extremity edema, No calf tenderness Laboratory Data Labs 24H Laboratory Tests 2 04/15/19 20:31: Immature Granulocyte % (Auto) 1.1, Neutrophils (%) (Auto) 93.8H, Lymphocytes (%) (Auto) 1.4L, Monocytes (%) (Auto) 3.6, Eosinophils (%) (Auto) 0.0, Basophils (%) (Auto) 0.1, Neutrophils # (Auto) 12.6H, Lymphocytes # (Auto) 0.2L, Monocytes # (Auto) 0.5, Eosinophils # (Auto) 0.0, Basophils # (Auto) 0.0, Nucleated Red Blood Cells % (auto) 0.0, Blood Gas Bicarbonate Standard 21.9, Venous Blood pH 7.298L, Venous Blood Partial Pressure CO2 49.3, Venous Blood Partial Pressure O2 206.8H, Venous Blood Total Carbon Dioxide 25.1, Venous Blood HCO3 23.6, Venous Blood Oxygen Saturation 99.6H, Venous Blood Base Excess -3.2L, Anion Gap 5L, Glomerular Filtration Rate > 60.0, Calcium Level 8.1L, Total Bilirubin 0.6, Direct Bilirubin 0.2, Aspartate Amino Transf (AST/SGOT) 79H, Alanine Aminotransferase (ALT/SGPT) 23, Alkaline Phosphatase 188H, Ammonia 34H, Total Protein 7.0, Albumin 2.2L, Albumin/Globulin Ratio 0.46L, Thyroid Stimulating Hormone (TSH) 2.490, Free Thyroxine Index 3.3, Thyroxine (T4) 9.7, Triiodothyronine (T3) Uptake 34, Ethyl Alcohol Level < 0.003 04/15/19 20:41: Bedside Glucose (Misc Panel) 92 04/15/19 22:22: Lactic Acid Level 1.3 CBC/BMP Laboratory Tests 04/15/19 20:31 Plan / VTE VTE Prophylaxis Ordered?: No Plan Plan Assessment: Unresponsive Acute hypoxic respiratory failure Bilateral infiltrates - possibly 2/2 HCAP, aspiration pneumonia, drug resistant pneumonia Hypothermia Unresectable locally advanced cholangiocarcinoma (s/p transhepatic stent and aborted whipple, T2N0M0) Small cell lung cancer s/p left upper lobectomy Hx of CVA (R Putamen, Chronic L subinsular lacunar infarcts) COPD KEELY on BIPAP DLP Dementia Parkinsons disease Plan: - Discussed in detail the findings of lab work and imaging to the family, including recent PET scan - Patients vital signs are critical; saturations of upper 70 on nonrebreather - Healthcare proxy has discussed with me the findings of living will - A MOLST form has been updated to reflect DNR and DNI - Patients family has requested that we proceed with comfort measures - Nonessential medications were discontinued; will discontinue fluids and antibiotics - Will continue with oxygen for comfort - We will start medications for pain control and anxiety relief CECILIA REYES MD Apr 16, 2019 03:09
--- NOTE | 2019-04-16 07:53 | REP ---
Chest, single frontal view: Comparison is 02/26/2019. There are surgical clips in the left hilus, compatible with left upper lobectomy. There is mediastinal shift to the left, compatible with left upper lobectomy. These findings are unchanged. There is a left subclavian central venous catheter with the tip in the right atrium, unchanged. There is a large infiltrate superiorly in the left lung as an interval change. Left hemidiaphragm is obscured. This could be artifact from left upper lobectomy or could represent a left pleural effusion. There is a large infiltrate inferiorly in the right lung. There are bulla throughout the lung ponce bilaterally, particularly the upper lobes, unchanged. Impression: New infiltrates superiorly in the left lung and inferiorly in the right lung. Left pleural effusion versus artifact from left upper lobectomy. The left subclavian central venous catheter. Numerous bulla bilaterally, unchanged. Left upper lobectomy. Electronically Signed by Mike Jenkins MD 04/16/2019 07:44 A
[2019-04-16] MEDS ORDERED: MORPHINE 10MG/0.5ML ORAL CONCENTRATE SOLUTION U/D SL PRN (17:00)
--- NOTE | 2019-04-17 02:07 | IPNPDOC ---
Subjective Date Seen The patient was seen on 04/16/19. 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 Family at the bedside. He has been unarousable, but they feel that he is comfortable. General: Reports: ROS Unobtainable Objective Physical Examination General Exam: Positive: No Acute Distress (appears ill, but not uncomfortable right now), Other (cachectic); Negative: Alert Skin Exam: Positive: Other skin issue (feet somewhat mottled) Assessment /Plan Problems (1) Comfort measures only status (2) Pneumonia Status: Acute Problem Text: The cause of his acute illness; receiving LINK MACHINE OPERATOR care. (3) Cholangiocarcinoma Status: Chronic Problem Text: This is his underlying disease process. Nonoperative, with a biliary stent. He has done better than predicted, but still has been declining, especially recently. Heme/onc, recognizing his illness, held his most recent round of chemo. (4) Diabetes Status: Chronic Problem Text: With his illness and associated weight loss, he has been diet controlled (5) History of lung cancer Status: Resolved Problem Text: Remote past. (6) Malnutrition Problem Text: He has lost weight over the last year, but the weight loss accelerated recently, and he had noted loss of appetite. Heme/onc recognized this and held his most recent course of chemo. This malnutrition contributes to his declining status. Plan/VTE VTE Prophylaxis Ordered?: No VTE Exclusion Mechanical Proph: Other (LINK MACHINE OPERATOR status) VS, I&O, 24H, Fishbone Vital Signs/I&O Vital Signs Date Time Temp Pulse Resp B/P (MAP) Pulse Ox O2 Delivery O2 Flow Rate FiO2 04/16/19 20:00 5.0 04/16/19 06:34 88 26 59 Nasal Cannula 04/16/19 02:32 94.4 108/53 82 I&O- Last 24 Hours up to 6 AM 04/17/19 06:00 Intake Total 0 ml Output Total 0 ml Balance 0 ml ADEOLA NATH DO Apr 17, 2019 02:07
--- NOTE | 2019-04-17 23:26 | DS.PDOC ---
Discharge Summary General Date of Admission Apr 15, 2019 at 19:16 Date of Discharge April 17, 2019 Primary Care Physician: ADEOLA NATH DO Attending Physician: ADEOLA NATH DO Discharge Summary PROCEDURES PERFORMED DURING STAY: [None]. ADMITTING DIAGNOSES: Unresponsive Acute hypoxic respiratory failure Bilateral infiltrates - possibly 2/2 HCAP, aspiration pneumonia, drug resistant pneumonia Hypothermia Unresectable locally advanced cholangiocarcinoma (s/p transhepatic stent and aborted whipple, T2N0M0) Small cell lung cancer s/p left upper lobectomy Hx of CVA (R Putamen, Chronic L subinsular lacunar infarcts) COPD KEELY on BIPAP DLP Dementia Parkinsons disease DISCHARGE DIAGNOSES: Unresponsive Acute hypoxic respiratory failure Bilateral infiltrates - possibly 2/2 HCAP, aspiration pneumonia, drug resistant pneumonia Hypothermia Unresectable locally advanced cholangiocarcinoma (s/p transhepatic stent and aborted whipple, T2N0M0) Small cell lung cancer s/p left upper lobectomy Hx of CVA (R Putamen, Chronic L subinsular lacunar infarcts) COPD KEELY on BIPAP DLP Dementia Parkinsons disease COMPLICATIONS/CHIEF COMPLAINT: Comfort Measures Only Status. HISTORY OF PRESENT ILLNESS: Patient is a 78-year-old male with a past medical history of Unresectable locally advanced cholangiocarcinoma (s/p transhepatic stent and aborted whipple, T2N0M0), Small cell lung cancer s/p left upper lobectomy, Hx of CVA (R Putamen, Chronic L subinsular lacunar infarcts), COPD, KEELY on BIPAP, DLP, Dementia, Parkinsons disease , who presented to the emergency room brought in by EMS after he was found unconscious. Patients family reported that he was last known well on Monday at 3 PM. Patients family went to go check up on him at 6 PM when he had found him unconscious with shallow breathing. Upon arrival to emergency room, patient was unresponsive, did not follow commands. Patient was also noted to be hypothermic at 88.5F. Imaging completed revealed worsening pneumonia. Patient was found to be hypoxic; his saturations remained in the 70s to 80s while on 100% nonrebreather mask. Patient healthcare proxy has presented a living will which has indicated DO NOT RESUSCITATE and DO NOT INTUBATE in specific instances. Patients family would like to proceed with comfort measures alone. Mee advised them that nonessential medications will be discontinued, as well as blood work, imaging and vital signs. Antibiotics and IV fluids will be discontinued. 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 HOSPITAL COURSE: Patient was admitted to the hospital under Comfort Measures Only status. His family members were at the bedside. Medication was available to keep him comfortable. He at 12:05 a.m. on 04/17. DISCHARGE MEDICATIONS: Please see below. ALLERGIES: Please see below. PHYSICAL EXAMINATION ON DISCHARGE: LABORATORY DATA: Please see below. IMAGING: Head CT showed no acute abnormality. CXR showed: New infiltrates superiorly in the left lung and inferiorly in the right lung. Left pleural effusion versus artifact from left upper lobectomy. The left subclavian central venous catheter. Numerous bulla bilaterally, unchanged. Left upper lobectomy. PROGNOSIS: DISCHARGE PLAN: DISPOSITION: 20 . TIME SPENT ON DISCHARGE: Greater than 5 minutes. Vital Signs/I&Os Vital Signs Date Time Temp Pulse Resp B/P (MAP) Pulse Ox O2 Delivery O2 Flow Rate FiO2 04/16/19 20:00 5.0 04/16/19 06:34 88 26 59 Nasal Cannula 04/16/19 02:32 94.4 108/53 82 I&O- Last 24 Hours up to 6 AM 04/17/19 06:00 Intake Total 0 ml Output Total 0 ml Balance 0 ml Discharge Medications Scheduled Amiloride HCl (Amiloride HCl) 5 Mg Tab, 5 MG PO DAILY, (Reported) Aspirin (Aspirin EC) 81 Mg Tablet.dr, 81 MG PO DAILY, (Reported) Carbidopa/Levodopa (Carbidopa-Levo ER 50-200 Tab) 1 Each Tablet.er, 1 TAB PO 5XD, (Reported) 0500, 0900, 1400, 1900, BEDTIME Doxycycline Hyclate (Doxycycline Hyclate) 100 Mg Capsule, 100 MG PO BID, (Reported) Fluticasone Propionate (Flonase Allergy Relief) 50 Mcg/Act Spr, 2 SPRAYS NA DAILY, (Reported) Levofloxacin (Levofloxacin) 500 Mg Tablet, 500 MG PO DAILY, (Reported) Multivitamins (Thera M Plus Tablet) 1 Each Tablet, 1 TAB PO DAILY, (Reported) Omeprazole (Omeprazole) 40 Mg Capsule.dr, 40 MG PO BID, (Reported) Potassium Chloride (Potassium Chloride) 40 Meq/15 Ml Liquid, 20 MEQ PO BID, (Reported) Pramipexole Di-HCl (Mirapex) 1.5 Mg Tab, 1.5 MG PO TID, (Reported) 0800, 1200, 2000 Rasagiline Mesylate (Rasagiline Mesylate) 1 Mg Tab, 1 MG PO DAILY, (Reported) Salmeterol/Fluticasone (Advair 250-50 Diskus) 14 Puff/Inhaler Aerp, 1 PUFF INH BID, (Reported) Scheduled PRN Albuterol Sulfate (Proair Hfa) 108 Mcg/Act Aer, 2 PUFFS INH Q4H PRN for SHORTNESS OF BREATH, (Reported) Polyvinyl Alcohol (Artificial Tears) 1.4 % Mellisa, 1 DROP OU QID PRN for DRY EYES, (Reported) Torsemide (Torsemide) 20 Mg Tab, 40 MG PO BID PRN for EXCESS FLUID, (Reported) Allergies Coded Allergies: Penicillins (Verified Adverse Reaction, Mild, Mouth Soreness, 06/20/18) amoxicillin (Verified Adverse Reaction, Mild, MOUTH SORES, 02/26/19) ADEOLA NATH DO Apr 17, 2019 23:26
== END 2019-04-17 00:05 | disposition expired ==
LOC: M ED 19:15 → EDBD 19:15 → M ED INP 19:16 → CMPBEDREQ 23:01 → ENRESERV 04-16 08:34 → M MS4PR 04-16 09:17
PROVIDERS: ADMIT Internal Medicine; ATTEND Family Medicine
DX: R40.20 Unspecified coma (principal); J96.01 Acute respiratory failure with hypoxia; J18.9 Pneumonia, unspecified organism; R68.0 Hypothermia, not associated with low environmental temperature; C22.1 Intrahepatic bile duct carcinoma; J44.9 Chronic obstructive pulmonary disease, unspecified; E11.9 Type 2 diabetes mellitus without complications; Z85.118 Personal history of other malignant neoplasm of bronchus and lung; Z86.73 Personal history of transient ischemic attack (TIA), and cerebral infarction without residual deficits; G47.33 Obstructive sleep apnea (adult) (pediatric); E78.49 Other hyperlipidemia; F03.90 Unspecified dementia, unspecified severity, without behavioral disturbance, psychotic disturbance, mood disturbance, and anxiety; G20 Parkinson's disease; E46 Unspecified protein-calorie malnutrition; Z88.0 Allergy status to penicillin; Z79.82 Long term (current) use of aspirin; Z79.899 Other long term (current) drug therapy
CPT/HCPCS: 70450; 71045; 80048; 80076; 82140; 82803; 83605; 84436; 84443; 84479; 85025; 96365; 96375; 99285; G0378; G0480; J1956; J2270; J2310